=== PATIENT | female | born 1945 | race Caucasian/White ===

== ENCOUNTER 2019-08-26 11:17 | Inpatient (IN) | payer MEDICARE, MEDICAID ==
[2019-08-27 01:26] VITALS: BP 133/58
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
[2019-08-27] MEDS: Budesonide 0.5 Mg/2 mL Ud HHN SCH (16:34)
[2019-08-27] MEDS: Ferrous Sulfate 325 MG TAB PO SCH (16:34)
--- NOTE | 2019-08-27 16:50 | History & Physical ---
ADMIT DATE: CHIEF COMPLAINT: Auditory hallucinations. HISTORY OF PRESENT ILLNESS: We have a 74-year-old female with diabetes, hypertension, transferred from [facility] to continue management of auditory hallucinations. The patient is saying incomprehensible words. She is claiming "I am talking to Willam." No chest pain, shortness of breath. No nausea, vomiting, abdominal pain. PAST MEDICAL HISTORY: Diabetes, hypertension. PAST SURGICAL HISTORY: None. MEDICATIONS: Reviewed. ALLERGIES: None. SOCIAL HISTORY: Tobacco, IV drugs, ETOH negative. PHYSICAL EXAMINATION: VITAL SIGNS: Temperature is 97.6, pulse 80, respirations 20, blood pressure 133/58. HEENT: Normocephalic, atraumatic head exam. NECK: Supple. CARDIOVASCULAR: Regular rate and rhythm. LUNGS: Decreased breath sounds. ABDOMEN: Soft, nontender. EXTREMITIES: No edema, cyanosis or clubbing. ASSESSMENT: 1. Auditory hallucinations. 2. Diabetes. 3. Hypertension. 4. Obesity. 5. Urinary tract infection. PLAN: The patient will be continued on supportive care. We will medically manage with diabetes. We will get Accu-Cheks q.a.c. and at bedtime, sliding scale insulin. JOB# [id number]
[2019-08-28] MEDS: Albuterol Nebulizer 2.5mg/3mL HHN SCH ×4 (06:29→17:36)
[2019-08-28] MEDS: Levothyroxine 0.05 Mg Tab PO SCH (07:34)
[2019-08-28] MEDS: Budesonide 0.5 Mg/2 mL Ud HHN SCH ×2 (08:33→16:28)
[2019-08-28] MEDS: Aspirin 81mg Chewable Tab PO SCH (08:33)
[2019-08-28] MEDS: Ferrous Sulfate 325 MG TAB PO SCH ×2 (08:34→16:29)
[2019-08-28] MEDS: Potassium Chloride 10 mEq ER Tab PO SCH (08:36)
[2019-08-28] MEDS ORDERED: Non-Formulary Item 1 EA (Fluticasone/Vilanterol [Breo Ellipta 200-25 Mcg Inh] 1 EACH) INH SCH (09:00)
[2019-08-28] MEDS ORDERED: GLUCAGON HCl 1 MG KIT IM PRN (11:29)
--- NOTE | 2019-08-28 11:34 | Internal Medicine Prog Note ---
Internal Medicine Subjective - Subjective Service Date: 08/28/19 Patient seen and examined:: without staff Patient is:: awake, interactive, ambulating Per staff patient has:: no adverse event, no episodes of fall Internal Medicine Objective - Physical Exam Vitals and I&O: Vital Signs Temp 98.7 F 08/28/19 06:29 Pulse 90 08/28/19 08:36 Resp 20 08/28/19 07:40 BP 153/83 08/28/19 08:36 Pulse Ox 97 08/28/19 06:29 Intake & Output 08/27/19 08/28/19 08/28/19 18:59 06:59 18:59 Intake Total 800 120 Balance 800 120 Intake: Oral 800 120 Other: # Voids 3 3 # Bowel Movements 0 Active Medications: Current Medications Albuterol Sulfate (Albuterol 2.5mg/3ml Neb Ud) 2.5 mg HHN Q6HR [facility] Stop: 10/26/19 17:59 Last Admin: 08/28/19 06:29 Dose: Not Given Allopurinol (Zyloprim) 100 mg PO DAILY [facility] Stop: 10/27/19 08:59 Last Admin: 08/28/19 08:33 Dose: 100 mg Aspirin (Aspirin Chewable) 81 mg PO DAILY [facility] Stop: 10/27/19 08:59 Last Admin: 08/28/19 08:33 Dose: 81 mg Brimonidine Tartrate (Alphagan 0.1% Ophth Soln) 1 drop EACH EYE HS [facility] Stop: 10/26/19 20:59 Last Admin: 08/27/19 21:26 Dose: 1 drop Budesonide (Pulmicort) 0.5 mg HHN BID [facility] Stop: 10/26/19 16:59 Last Admin: 08/28/19 08:33 Dose: 0.5 mg Carvedilol (Coreg) 6.25 mg PO BID [facility] Stop: 10/26/19 16:59 Last Admin: 08/28/19 08:33 Dose: 6.25 mg Dextrose (Glutose 40%) 18.75 gm PO PRN PRN PRN Reason: Blood Glucose less than 70 Stop: 10/27/19 11:28 Famotidine (Pepcid) 20 mg PO DAILY [facility] Stop: 10/27/19 08:59 Last Admin: 08/28/19 08:34 Dose: 20 mg Ferrous Sulfate (Iron) 325 mg PO BID [facility] Stop: 10/26/19 16:59 Last Admin: 08/28/19 08:34 Dose: 325 mg Fluoxetine HCl (Prozac) 20 mg PO DAILY [facility]; Protocol Stop: 10/27/19 08:59 Last Admin: 08/28/19 08:34 Dose: 20 mg Furosemide (Lasix) 20 mg PO DAILY [facility] Stop: 10/27/19 08:59 Last Admin: 08/28/19 08:34 Dose: 20 mg Glimepiride (Amaryl) 2 mg PO BID [facility] Stop: 10/26/19 16:59 Last Admin: 08/28/19 08:35 Dose: 2 mg Glucagon (Glucagen) 1 mg IM PRN PRN PRN Reason: Blood Glucose less than 70 Stop: 10/27/19 11:28 Insulin Human Lispro (Humalog Insulin Sliding Scale) 0 units SUBQ ACHS [facility]; Protocol Stop: 10/27/19 11:29 Latanoprost (Xalatan 0.005% Oph Soln) 1 drop EACH EYE HS [facility] Stop: 10/26/19 20:59 Last Admin: 08/27/19 21:30 Dose: 1 drop Levothyroxine Sodium (Synthroid) 0.05 mg PO QDAC [facility] Stop: 10/27/19 07:29 Last Admin: 08/28/19 07:34 Dose: 0.05 mg Lorazepam (Ativan) 0.5 mg PO Q4HR PRN; Protocol PRN Reason: Anxiety Stop: 10/26/19 01:34 Last Admin: 08/27/19 16:40 Dose: 0.5 mg Metformin HCl (Glucophage) 500 mg PO DAILY [facility] Stop: 10/27/19 08:59 Last Admin: 08/28/19 08:36 Dose: 500 mg Nitroglycerin (Nitrostat) 0.4 mg SL Q5MIN PRN PRN Reason: Chest Pain Stop: 10/26/19 13:25 Potassium Chloride (Klor-Con) 10 meq PO DAILY [facility] Stop: 10/27/19 08:59 Last Admin: 08/28/19 08:36 Dose: 10 meq Quetiapine Fumarate (Seroquel) 12.5 mg PO BID [facility]; Protocol Stop: 10/26/19 16:59 Last Admin: 05/08/20 08:36 Dose: 12.5 mg Simvastatin (Zocor) 20 mg PO DAILY [facility]; Protocol Stop: 10/27/19 08:59 Last Admin: 08/28/19 08:36 Dose: 20 mg Valsartan (Diovan) 160 mg PO DAILY [facility] Stop: 10/27/19 08:59 Last Admin: 08/28/19 08:36 Dose: 160 mg Zolpidem Tartrate (Ambien) 5 mg PO HS PRN PRN Reason: Insomnia Stop: 10/26/19 01:35 HEENT: NC/AT Neck: Supple Lungs: CTAB Cardiovascular: RRR, Normal S1, Normal S2 Abdomen: soft, non-tender Extremities: clear Internal Medicine Assmt/Plan - Assessment Assessment: 1. Psychosis 2. DM/HTN 3. UTI - Plan Plan: will start insulin sliding scale insulin check stat bmp continue metformin d.w r.n.
[2019-08-28] MEDS: INSULIN LISPRO SLIDING SCALE 100 UNITS/ML UNIT SUBQ SCH ×3 (12:00→21:39)
--- NOTE | 2019-08-28 19:37 | Progress Notes ---
DATE: 08/28/2019 SUBJECTIVE: Case was discussed with staff of the patient, reviewed records. The patient continues to be overwhelmed, continues to be unpredictable, impulsive, episodes of crying, delusional, and paranoid. I called her son, Rolly, whose name is on her face sheet. I left a message to call me to get more information and also to see whether they want the patient to go back home or to go to a nursing facility. The patient with multiple physical condition and on cross examination, the patient is internally preoccupied. Continues to be mumbling, unable to make sense, confused. So, we spoke through a fireman. Unable to make safe plan for self-care, easily agitated. No side effects with the medication, no sedation, no nausea, no extrapyramidal symptoms and she is on Effexor and Seroquel. We will continue outpatient group therapy, milieu therapy, and adjust medication as needed. JOB# [id number]
[2019-08-29] MEDS: Albuterol Nebulizer 2.5mg/3mL HHN SCH ×4 (00:29→17:09)
[2019-08-29] MEDS: Levothyroxine 0.05 Mg Tab PO SCH (06:46)
[2019-08-29] MEDS: INSULIN LISPRO SLIDING SCALE 100 UNITS/ML UNIT SUBQ SCH ×4 (07:01→20:53)
[2019-08-29] MEDS: Budesonide 0.5 Mg/2 mL Ud HHN SCH ×2 (08:31→16:57)
[2019-08-29] MEDS: Aspirin 81mg Chewable Tab PO SCH (08:31)
[2019-08-29] MEDS: Ferrous Sulfate 325 MG TAB PO SCH ×2 (08:31→16:58)
[2019-08-29] MEDS: Potassium Chloride 10 mEq ER Tab PO SCH (08:32)
--- NOTE | 2019-08-29 20:47 | Psych Progress Note ---
Psych Progress Note - Intro Date of Progress Note: 08/29/19 - Assessment Assessment: Patient interviewed, case discussed with staff, chart and records reviewed. The patient continues to respond to internal stimuli. The patient has episodes of restlessness and irritability and impulsive behavior. The patient is poorly cooperative with the interview. The patient has disorganized thinking. The patient has no plan for self-care. She appears to be tolerating her medications well with no side effects. - Vitals, I&O Vitals: Vital Signs - 24 hr 08/29/19 08/29/19 08/29/19 06:41 07:12 08:31 Temp 97.3 F HR 71 71 RR 20 20 BP 158/60 158/60 O2 Sat % 97 08/29/19 08/29/19 08/29/19 08:32 14:00 16:57 Temp 97.5 F HR 71 78 75 RR 20 BP 158/60 146/64 144/64 O2 Sat % 96 08/29/19 20:05 Temp 99.4 F HR 94 RR 19 BP 147/76 O2 Sat % 98 - Objective Psych General Appearance: Report: No acute distress Psych Behavior: Report: Alert, Restless Psych Speech: Report: Mumbled Psych Mood: Report: Anxious Psych Affect: Report: Blunted Psych Thought Process: Report: Auditory Psych Cognition: Report: Confused Psych Insight: Report: Impaired Psych Judgement: Report: Impaired - Plan Plan: Continue current medications and treatment plan. Continue monitor for behaviors - Review of Relevant Data Review of Relevant Data: I have reviewed the following items and time isabelle (where applicable) has been applied. Psych Data Reviewed: Vitals - Medications Current Medications: Current Medications Albuterol Sulfate (Albuterol 2.5mg/3ml Neb Ud) 2.5 mg HHN Q6HR [facility] Stop: 10/26/19 17:59 Last Admin: 08/29/19 17:09 Dose: Not Given Allopurinol (Zyloprim) 100 mg PO DAILY [facility] Stop: 10/27/19 08:59 Last Admin: 08/29/19 08:30 Dose: 100 mg Aspirin (Aspirin Chewable) 81 mg PO DAILY [facility] Stop: 10/27/19 08:59 Last Admin: 08/29/19 08:31 Dose: 81 mg Brimonidine Tartrate (Alphagan 0.1% Ophth Soln) 1 drop EACH EYE HS [facility] Stop: 10/26/19 20:59 Last Admin: 08/28/19 21:27 Dose: 1 drop Budesonide (Pulmicort) 0.5 mg HHN BID [facility] Stop: 10/26/19 16:59 Last Admin: 08/29/19 16:57 Dose: 0.5 mg Carvedilol (Coreg) 6.25 mg PO BID [facility] Stop: 10/26/19 16:59 Last Admin: 08/29/19 16:57 Dose: 6.25 mg Dextrose (Glutose 40%) 18.75 gm PO PRN PRN PRN Reason: BS Below 70 if tolerate po Stop: 10/27/19 11:28 Famotidine (Pepcid) 20 mg PO DAILY [facility] Stop: 10/27/19 08:59 Last Admin: 08/29/19 08:31 Dose: 20 mg Ferrous Sulfate (Iron) 325 mg PO BID [facility] Stop: 10/26/19 16:59 Last Admin: 08/29/19 16:58 Dose: 325 mg Fluoxetine HCl (Prozac) 20 mg PO DAILY [facility]; Protocol Stop: 10/27/19 08:59 Last Admin: 08/29/19 08:31 Dose: 20 mg Furosemide (Lasix) 20 mg PO DAILY [facility] Stop: 10/27/19 08:59 Last Admin: 08/29/19 08:31 Dose: 20 mg Glimepiride (Amaryl) 2 mg PO BID [facility] Stop: 10/26/19 16:59 Last Admin: 08/29/19 16:58 Dose: 2 mg Glucagon (Glucagen) 1 mg IM PRN PRN PRN Reason: BS Below 70 if not tolerate po Stop: 10/27/19 11:28 Insulin Human Lispro (Humalog Insulin Sliding Scale) 0 units SUBQ ACHS [facility]; Protocol Stop: 10/27/19 11:29 Last Admin: 08/29/19 16:57 Dose: Not Given Latanoprost (Xalatan 0.005% Oph Soln) 1 drop EACH EYE HS [facility] Stop: 10/26/19 20:59 Last Admin: 08/28/19 21:27 Dose: 1 drop Levothyroxine Sodium (Synthroid) 0.05 mg PO QDAC [facility] Stop: 10/27/19 07:29 Last Admin: 08/29/19 06:46 Dose: 0.05 mg Lorazepam (Ativan) 0.5 mg PO Q4HR PRN; Protocol PRN Reason: Anxiety Stop: 10/26/19 01:34 Last Admin: 08/28/19 21:27 Dose: 0.5 mg Metformin HCl (Glucophage) 500 mg PO DAILY [facility] Stop: 10/27/19 08:59 Last Admin: 08/29/19 08:32 Dose: 500 mg Nitroglycerin (Nitrostat) 0.4 mg SL Q5MIN PRN PRN Reason: Chest Pain Stop: 10/26/19 13:25 Potassium Chloride (Klor-Con) 10 meq PO DAILY [facility] Stop: 10/27/19 08:59 Last Admin: 08/29/19 08:32 Dose: 10 meq Quetiapine Fumarate (Seroquel) 25 mg PO BID [facility]; Protocol Stop: 10/28/19 08:59 Last Admin: 08/29/19 16:58 Dose: 25 mg Simvastatin (Zocor) 20 mg PO DAILY [facility]; Protocol Stop: 10/27/19 08:59 Last Admin: 08/29/19 08:32 Dose: 20 mg Valsartan (Diovan) 160 mg PO DAILY [facility] Stop: 10/27/19 08:59 Last Admin: 08/29/19 08:32 Dose: 160 mg Zolpidem Tartrate (Ambien) 5 mg PO HS PRN PRN Reason: Insomnia Stop: 10/26/19 01:35 Last Admin: 08/28/19 23:29 Dose: 5 mg
[2019-08-30] MEDS: Albuterol Nebulizer 2.5mg/3mL HHN SCH ×3 (00:13→13:00)
[2019-08-30] MEDS: INSULIN LISPRO SLIDING SCALE 100 UNITS/ML UNIT SUBQ SCH ×4 (06:33→21:03)
[2019-08-30] MEDS: Levothyroxine 0.05 Mg Tab PO SCH (06:33)
[2019-08-30] MEDS: Aspirin 81mg Chewable Tab PO SCH (09:47)
[2019-08-30] MEDS: Budesonide 0.5 Mg/2 mL Ud HHN SCH ×2 (09:47→16:54)
[2019-08-30] MEDS: Ferrous Sulfate 325 MG TAB PO SCH ×2 (09:48→16:47)
[2019-08-30] MEDS: Potassium Chloride 10 mEq ER Tab PO SCH (09:50)
--- NOTE | 2019-08-30 19:09 | Psych Progress Note ---
Psych Progress Note - Intro Date of Progress Note: 08/30/19 - Assessment Assessment: Patient interviewed, case discussed with staff, chart and records reviewed. The patient continues to respond to internal stimuli. The patient has episodes of restlessness and irritability and impulsive behavior. The patient is poorly cooperative with the interview. The patient has disorganized thinking. The patient has no plan for self-care. She appears to be tolerating her medications well with no side effects. She is wandering into other patient rooms. - Vitals, I&O Vitals: Vital Signs - 24 hr 08/29/19 08/30/19 08/30/19 20:05 06:48 08:00 Temp 99.4 F 99.6 F HR 94 76 92 RR 19 19 20 BP 147/76 161/67 161/84 O2 Sat % 98 94 08/30/19 08/30/19 08/30/19 09:47 09:48 09:50 Temp HR 92 92 RR BP 161/84 161/84 161/84 O2 Sat % 08/30/19 08/30/19 14:00 16:47 Temp 99.4 F HR 96 96 RR 20 BP 144/70 144/70 O2 Sat % 93 - Objective Psych General Appearance: Report: No acute distress Psych Behavior: Report: Alert, Restless Psych Speech: Report: Mumbled Psych Mood: Report: Anxious Psych Affect: Report: Blunted Psych Thought Process: Report: Auditory Psych Cognition: Report: Confused Psych Insight: Report: Impaired Psych Judgement: Report: Impaired - Plan Plan: Continue current medications and treatment plan. will adjust psychotropics. Continue monitor for behaviors - Review of Relevant Data Review of Relevant Data: I have reviewed the following items and time isabelle (where applicable) has been applied. - Medications Current Medications: Current Medications Albuterol Sulfate (Albuterol 2.5mg/3ml Neb Ud) 2.5 mg HHN Q6HR [facility] Stop: 10/26/19 17:59 Last Admin: 08/30/19 13:00 Dose: Not Given Allopurinol (Zyloprim) 100 mg PO DAILY [facility] Stop: 10/27/19 08:59 Last Admin: 08/30/19 09:47 Dose: 100 mg Aspirin (Aspirin Chewable) 81 mg PO DAILY [facility] Stop: 10/27/19 08:59 Last Admin: 08/30/19 09:47 Dose: 81 mg Brimonidine Tartrate (Alphagan 0.1% Ophth Soln) 1 drop EACH EYE HS [facility] Stop: 10/26/19 20:59 Last Admin: 08/29/19 20:52 Dose: 1 drop Budesonide (Pulmicort) 0.5 mg HHN BID [facility] Stop: 10/26/19 16:59 Last Admin: 08/30/19 16:54 Dose: 0.5 mg Carvedilol (Coreg) 6.25 mg PO BID [facility] Stop: 10/26/19 16:59 Last Admin: 08/30/19 16:47 Dose: 6.25 mg Dextrose (Glutose 40%) 18.75 gm PO PRN PRN PRN Reason: BS Below 70 if tolerate po Stop: 10/27/19 11:28 Famotidine (Pepcid) 20 mg PO DAILY [facility] Stop: 10/27/19 08:59 Last Admin: 08/30/19 09:48 Dose: 20 mg Ferrous Sulfate (Iron) 325 mg PO BID [facility] Stop: 10/26/19 16:59 Last Admin: 08/30/19 16:47 Dose: 325 mg Fluoxetine HCl (Prozac) 20 mg PO DAILY [facility]; Protocol Stop: 10/27/19 08:59 Last Admin: 08/30/19 09:49 Dose: 20 mg Furosemide (Lasix) 20 mg PO DAILY [facility] Stop: 10/27/19 08:59 Last Admin: 08/30/19 09:48 Dose: 20 mg Glimepiride (Amaryl) 2 mg PO BID [facility] Stop: 10/26/19 16:59 Last Admin: 08/30/19 16:47 Dose: 2 mg Glucagon (Glucagen) 1 mg IM PRN PRN PRN Reason: BS Below 70 if not tolerate po Stop: 10/27/19 11:28 Insulin Human Lispro (Humalog Insulin Sliding Scale) 0 units SUBQ ACHS [facility]; Protocol Stop: 10/27/19 11:29 Last Admin: 08/30/19 16:45 Dose: 3 units Latanoprost (Xalatan 0.005% Ophth Soln) 1 drop EACH EYE HS [facility] Stop: 10/26/19 20:59 Last Admin: 08/29/19 20:53 Dose: 1 drop Levothyroxine Sodium (Synthroid) 0.05 mg PO QDAC [facility] Stop: 10/27/19 07:29 Last Admin: 08/30/19 06:33 Dose: 0.05 mg Lorazepam (Ativan) 0.5 mg PO Q4HR PRN; Protocol PRN Reason: Anxiety Stop: 10/26/19 01:34 Last Admin: 08/29/19 20:53 Dose: 0.5 mg Metformin HCl (Glucophage) 500 mg PO DAILY [facility] Stop: 10/27/19 08:59 Last Admin: 08/30/19 09:50 Dose: 500 mg Nitroglycerin (Nitrostat) 0.4 mg SL Q5MIN PRN PRN Reason: Chest Pain Stop: 10/26/19 13:25 Potassium Chloride (Klor-Con) 10 meq PO DAILY [facility] Stop: 10/27/19 08:59 Last Admin: 08/30/19 09:50 Dose: 10 meq Quetiapine Fumarate (Seroquel) 37.5 mg PO BID [facility]; Protocol Stop: 10/29/19 16:59 Last Admin: 08/30/19 16:52 Dose: 37.5 mg Simvastatin (Zocor) 20 mg PO DAILY [facility]; Protocol Stop: 10/27/19 08:59 Last Admin: 08/30/19 09:50 Dose: 20 mg Valsartan (Diovan) 160 mg PO DAILY [facility] Stop: 10/27/19 08:59 Last Admin: 08/30/19 09:50 Dose: 160 mg Zolpidem Tartrate (Ambien) 5 mg PO HS PRN PRN Reason: Insomnia Stop: 10/26/19 01:35 Last Admin: 08/28/19 23:29 Dose: 5 mg
[2019-08-31] MEDS: Albuterol Nebulizer 2.5mg/3mL HHN SCH ×4 (01:11→18:06)
[2019-08-31] MEDS: INSULIN LISPRO SLIDING SCALE 100 UNITS/ML UNIT SUBQ SCH ×4 (06:35→21:54)
[2019-08-31] MEDS: Levothyroxine 0.05 Mg Tab PO SCH (06:41)
[2019-08-31] MEDS: Aspirin 81mg Chewable Tab PO SCH (08:18)
[2019-08-31] MEDS: Ferrous Sulfate 325 MG TAB PO SCH ×2 (08:18→16:19)
[2019-08-31] MEDS: Potassium Chloride 10 mEq ER Tab PO SCH (08:18)
[2019-08-31] MEDS: Budesonide 0.5 Mg/2 mL Ud HHN SCH ×3 (08:22→16:51)
--- NOTE | 2019-08-31 11:56 | Internal Medicine Prog Note ---
Internal Medicine Subjective - Subjective Service Date: 08/31/19 Patient is:: awake, interactive, ambulating Per staff patient has:: no adverse event, no episodes of fall Internal Medicine Objective - Results Recent Labs: Laboratory Last Values POC Glucose 103 MG/DL (70 - 105) 08/31/19 06:24 - Physical Exam Vitals and I&O: Vital Signs Temp 97.4 F 08/31/19 06:12 Pulse 63 08/31/19 08:20 Resp 18 08/31/19 08:00 BP 144/63 08/31/19 08:20 Pulse Ox 97 08/31/19 06:12 Intake & Output 08/30/19 08/31/19 08/31/19 18:59 06:59 18:59 Intake Total 620 360 Balance 620 360 Intake: Oral 620 360 Other: # Voids 1 # Bowel Movements 0 Active Medications: Current Medications Albuterol Sulfate (Albuterol 2.5mg/3ml Neb Ud) 2.5 mg HHN Q6HR [facility] Stop: 10/26/19 17:59 Last Admin: 08/31/19 06:12 Dose: Not Given Allopurinol (Zyloprim) 100 mg PO DAILY [facility] Stop: 10/27/19 08:59 Last Admin: 08/31/19 08:18 Dose: 100 mg Aspirin (Aspirin Chewable) 81 mg PO DAILY [facility] Stop: 10/27/19 08:59 Last Admin: 08/31/19 08:18 Dose: 81 mg Brimonidine Tartrate (Alphagan 0.1% Ophth Soln) 1 drop EACH EYE HS [facility] Stop: 10/26/19 20:59 Last Admin: 08/30/19 21:03 Dose: 1 drop Budesonide (Pulmicort) 0.5 mg HHN BID [facility] Stop: 10/26/19 16:59 Last Admin: 08/31/19 08:22 Dose: 0.5 mg Carvedilol (Coreg) 6.25 mg PO BID [facility] Stop: 10/26/19 16:59 Last Admin: 08/31/19 08:20 Dose: 6.25 mg Dextrose (Glutose 40%) 18.75 gm PO PRN PRN PRN Reason: BS Below 70 if tolerate po Stop: 10/27/19 11:28 Famotidine (Pepcid) 20 mg PO QDAC [facility] Stop: 10/31/19 07:29 Ferrous Sulfate (Iron) 325 mg PO BID [facility] Stop: 10/26/19 16:59 Last Admin: 08/31/19 08:18 Dose: 325 mg Fluoxetine HCl (Prozac) 20 mg PO DAILY [facility]; Protocol Stop: 10/27/19 08:59 Last Admin: 08/31/19 08:19 Dose: 20 mg Furosemide (Lasix) 20 mg PO DAILY [facility] Stop: 10/27/19 08:59 Last Admin: 08/31/19 08:20 Dose: 20 mg Glimepiride (Amaryl) 2 mg PO BID [facility] Stop: 10/26/19 16:59 Last Admin: 08/31/19 08:18 Dose: 2 mg Glucagon (Glucagen) 1 mg IM PRN PRN PRN Reason: BS Below 70 if not tolerate po Stop: 10/27/19 11:28 Insulin Human Lispro (Humalog Insulin Sliding Scale) 0 units SUBQ ACHS [facility]; Protocol Stop: 10/27/19 11:29 Last Admin: 08/31/19 06:35 Dose: Not Given Latanoprost (Xalatan 0.005% Ophth Soln) 1 drop EACH EYE HS [facility] Stop: 10/26/19 20:59 Last Admin: 08/30/19 21:03 Dose: 1 drop Levothyroxine Sodium (Synthroid) 0.05 mg PO QDAC [facility] Stop: 10/27/19 07:29 Last Admin: 08/31/19 06:41 Dose: 0.05 mg Lorazepam (Ativan) 0.5 mg PO Q4HR PRN; Protocol PRN Reason: Anxiety Stop: 10/26/19 01:34 Last Admin: 08/29/19 20:53 Dose: 0.5 mg Metformin HCl (Glucophage) 500 mg PO DAILY [facility] Stop: 10/27/19 08:59 Last Admin: 08/31/19 08:18 Dose: 500 mg Nitroglycerin (Nitrostat) 0.4 mg SL Q5MIN PRN PRN Reason: Chest Pain Stop: 10/26/19 13:25 Potassium Chloride (Klor-Con) 10 meq PO DAILY [facility] Stop: 10/27/19 08:59 Last Admin: 08/31/19 08:18 Dose: 10 meq Quetiapine Fumarate (Seroquel) 37.5 mg PO BID [facility]; Protocol Stop: 10/29/19 16:59 Last Admin: 08/31/19 08:17 Dose: 37.5 mg Simvastatin (Zocor) 20 mg PO HS [facility]; Protocol Stop: 10/31/19 20:59 Valsartan (Diovan) 160 mg PO DAILY [facility] Stop: 10/27/19 08:59 Last Admin: 08/31/19 08:20 Dose: 160 mg Zolpidem Tartrate (Ambien) 5 mg PO HS PRN PRN Reason: Insomnia Stop: 10/26/19 01:35 Last Admin: 08/28/19 23:29 Dose: 5 mg HEENT: NC/AT Neck: Supple Lungs: CTAB Cardiovascular: RRR, Normal S1, Normal S2 Abdomen: soft, non-tender Extremities: clear Internal Medicine Assmt/Plan - Assessment Assessment: 1. Psychosis 2. DM/HTN 3. UTI - Plan Plan: will start insulin sliding scale insulin continue metformin d.w r.n. Nutritional Asmnt/Malnutr-PDOC - Dietary Evaluation Malnutrition Findings (Please click <Entered> for more info): Nutritional Asmnt/Malnutrition Start: 08/29/19 09: 11 Text: Status: Complete Freq: Protocol: Document 08/29/19 09:11 TERRIE (Rec: 08/29/19 09:29 TERRIE CASE- [id number]) Nutritional Asmnt/Malnutrition Patient General Information Nutritional Screening Moderate Risk Diagnosis Psychosis Pertinent Medical Hx/Surgical Hx Diabetes, Hypertension, asthma , arthritis, dementia, parkinsons, hypothyroidism, glaucoma, hyperlipidemia. Subjective Information Patient was admitted from [facility]. Amharic speaking. Per nursing notes, patient very suspicious, paranoid that poison powder may be added to her food. Current Diet Order/ Nutrition Support 60 gm CCHO, VIVIEN Patient / S.O Not Indicated Pertinent Medications Pepcid, iron, lasix, glucagon, humalog, synthroid, Metformin , Klor-con Pertinent Labs POC glucose 269 5/6: HDL 44 Nutritional Hx/Data Height 1.45 m Height (Calculated Centimeters) 144.8 Current Weight (lbs) 67.585 kg Weight (Calculated Kilograms) 67.6 Weight (Calculated Grams) 87189.3 [place] Body Weight 92.5 % [place] Body Weight 161 Body Mass Index (BMI) 32.2 Recent Weight Change No Weight Status Obese GI Symptoms GI Symptoms Nausea Last BM 08/27 x 1 Difficult in: None Food Allergies No Cultural/Ethnic/Samaritan Belief none indicated Usual diet at home unknown Skin Integrity/Comment: Intact, James 21 Current %PO Good (75-100%) Estimated Nutritional Goals BEE in Kcals: Adj wt of IBW Calories/Kcals/Kg Adj BW 48.4 kg 25-30 kcal/kg Kcals Calculated ~4810-9911 kcal/day Protein: Adj wt of IBW Protein g/k-1.2 gm/kg Protein Calculated ~50-60 gm/day Fluid: ml ~1525-0740 ml/day (1 ml/kcal) Nutritional Problem 1. Problem Problem Altered nutrition related lab values related to Etiology uncontrolled hyperglycemia aeb Signs/Symptoms: POC glucose 269 Intervention/Recommendation Comments 1. Consider modifying diet to 45 gm CCHO to better meet nutrient needs. 2. MD to modify insulin regimen as needed for optimal glycemic control. Expected Outcomes/Goals Expected Outcomes/Goals Oral intake >75% of meals, weight stable or trend toward IBW, nutrition related lab values WNL. F/U LR 09/04-
[2019-09-01] MEDS: Albuterol Nebulizer 2.5mg/3mL HHN SCH ×4 (00:30→18:10)
--- NOTE | 2019-09-01 01:37 | Progress Notes ---
DATE: 08/31/2019 Case was discussed with staff of the patient, reviewed records. The patient continues to be agitated and irritable with episodes of yelling and screaming, restless, impulsive, unpredictable and uncooperative, disorganized. No plan for self-care. No side effects with the medication, no sedation, no nausea, no extrapyramidal symptoms. MENTAL STATUS EXAMINATION: The patient is not appropriately dressed, not very groomed. She is talking to herself, unable to make safe plan for self-care, unpredictable, impulsive, needing redirection. Dr. gamez increased her dose yesterday of the Seroquel to 37.5 mg twice a day. I will be making further increase of her medication to 50 mg twice a day. No side effects with the medication, no sedation, no nausea, no extrapyramidal symptoms. Also, called her her son have a call me back. I will try to call him again and we will continue to work with the patient in group therapy, milieu therapy, adjust medication as needed. JOB# [id number] MTDD
[2019-09-01] MEDS: Levothyroxine 0.05 Mg Tab PO SCH (07:00)
[2019-09-01] MEDS: INSULIN LISPRO SLIDING SCALE 100 UNITS/ML UNIT SUBQ SCH ×4 (07:00→21:49)
[2019-09-01] MEDS: Potassium Chloride 10 mEq ER Tab PO SCH (08:12)
[2019-09-01] MEDS: Aspirin 81mg Chewable Tab PO SCH (08:12)
[2019-09-01] MEDS: Ferrous Sulfate 325 MG TAB PO SCH ×2 (08:13→16:37)
[2019-09-01] MEDS: Budesonide 0.5 Mg/2 mL Ud HHN SCH ×2 (08:15→16:38)
--- NOTE | 2019-09-01 21:09 | Progress Notes ---
DATE: 09/01/2019 Case was discussed with staff of these records. Also talked to her son yesterday and he told me that they do plan to have her go back home. She will have 24-hour care. The patient tolerated the increase in Seroquel to 50 mg twice a day with no side effects, no sedation, no nausea, no extrapyramidal symptoms. However, the patient continues with disheveled, disorganized, internally preoccupied, impulsive, trying to leave , pushing on the doors. She is sleeping better, eating better. No side effects with the medication, no sedation, no nausea, no extrapyramidal symptoms. We will continue outpatient group therapy, milieu therapy, and adjust medications as needed. JOB# [id number] ANTONIO
[2019-09-02] MEDS: Albuterol Nebulizer 2.5mg/3mL HHN SCH ×4 (00:47→18:49)
[2019-09-02] MEDS: INSULIN LISPRO SLIDING SCALE 100 UNITS/ML UNIT SUBQ SCH ×4 (06:44→20:39)
[2019-09-02] MEDS: Levothyroxine 0.05 Mg Tab PO SCH (06:45)
[2019-09-02] MEDS: Aspirin 81mg Chewable Tab PO SCH (08:33)
[2019-09-02] MEDS: Ferrous Sulfate 325 MG TAB PO SCH ×2 (08:33→16:45)
[2019-09-02] MEDS: Potassium Chloride 10 mEq ER Tab PO SCH (08:33)
[2019-09-02] MEDS: Budesonide 0.5 Mg/2 mL Ud HHN SCH ×2 (08:36→17:49)
--- NOTE | 2019-09-02 14:10 | Internal Medicine Prog Note ---
Internal Medicine Subjective - Subjective Service Date: 09/02/19 (no chest pain, no sob) Patient seen and examined:: without staff Patient is:: awake, interactive, ambulating Per staff patient has:: no adverse event, no episodes of fall Internal Medicine Objective - Results Recent Labs: Laboratory Last Values POC Glucose 201 MG/DL (70 - 105) H 09/02/19 11:13 - Physical Exam Vitals and I&O: Vital Signs Temp 98.5 F 09/02/19 06:43 Pulse 68 09/02/19 08:35 Resp 18 09/02/19 08:00 BP 138/78 09/02/19 08:35 Pulse Ox 99 09/02/19 06:43 Intake & Output 09/01/19 09/02/19 09/02/19 18:59 06:59 18:59 Intake Total 800 240 Balance 800 240 Intake: Oral 800 240 Other: # Voids 3 2 # Bowel Movements 1 0 Active Medications: Current Medications Albuterol Sulfate (Albuterol 2.5mg/3ml Neb Ud) 2.5 mg HHN Q6HR [facility] Stop: 10/26/19 17:59 Last Admin: 09/02/19 12:04 Dose: Not Given Allopurinol (Zyloprim) 100 mg PO DAILY [facility] Stop: 10/27/19 08:59 Last Admin: 09/02/19 08:33 Dose: 100 mg Aspirin (Aspirin Chewable) 81 mg PO DAILY [facility] Stop: 10/27/19 08:59 Last Admin: 09/02/19 08:33 Dose: 81 mg Brimonidine Tartrate (Alphagan 0.1% Ophth Soln) 1 drop EACH EYE HS [facility] Stop: 10/26/19 20:59 Last Admin: 09/01/19 21:16 Dose: 1 drop Budesonide (Pulmicort) 0.5 mg HHN BID [facility] Stop: 10/26/19 16:59 Last Admin: 09/02/19 08:36 Dose: Not Given Carvedilol (Coreg) 6.25 mg PO BID [facility] Stop: 10/26/19 16:59 Last Admin: 09/02/19 08:35 Dose: 6.25 mg Dextrose (Glutose 40%) 18.75 gm PO PRN PRN PRN Reason: BS Below 70 if tolerate po Stop: 10/27/19 11:28 Donepezil HCl (Aricept) 5 mg PO HS [facility] Stop: 10/30/19 20:59 Last Admin: 09/01/19 21:16 Dose: Not Given Famotidine (Pepcid) 20 mg PO QDAC [facility] Stop: 10/31/19 07:29 Last Admin: 09/02/19 06:44 Dose: 20 mg Ferrous Sulfate (Iron) 325 mg PO BID [facility] Stop: 10/26/19 16:59 Last Admin: 09/02/19 08:33 Dose: 325 mg Fluoxetine HCl (Prozac) 20 mg PO DAILY [facility]; Protocol Stop: 10/27/19 08:59 Last Admin: 09/02/19 08:33 Dose: 20 mg Furosemide (Lasix) 20 mg PO DAILY [facility] Stop: 10/27/19 08:59 Last Admin: 09/02/19 08:34 Dose: 20 mg Glimepiride (Amaryl) 2 mg PO BID [facility] Stop: 10/26/19 16:59 Last Admin: 09/02/19 08:33 Dose: 2 mg Glucagon (Glucagen) 1 mg IM PRN PRN PRN Reason: BS Below 70 if not tolerate po Stop: 10/27/19 11:28 Insulin Human Lispro (Humalog Insulin Sliding Scale) 0 units SUBQ ACHS [facility]; Protocol Stop: 10/27/19 11:29 Last Admin: 09/02/19 12:17 Dose: 1,000 units Latanoprost (Xalatan 0.005% Ophth Soln) 1 drop EACH EYE [facility] Stop: 10/26/19 20:59 Last Admin: 09/01/19 21:16 Dose: 1 drop Levothyroxine Sodium (Synthroid) 0.05 mg PO QDAC [facility] Stop: 10/27/19 07:29 Last Admin: 09/02/19 06:45 Dose: 0.05 mg Lorazepam (Ativan) 0.5 mg PO Q4HR PRN; Protocol PRN Reason: Anxiety Stop: 10/26/19 01:34 Last Admin: 09/02/19 09:58 Dose: 0.5 mg Metformin HCl (Glucophage) 500 mg PO DAILY [facility] Stop: 10/27/19 08:59 Last Admin: 09/02/19 08:33 Dose: 500 mg Nitroglycerin (Nitrostat) 0.4 mg SL Q5MIN PRN PRN Reason: Chest Pain Stop: 10/26/19 13:25 Potassium Chloride (Klor-Con) 10 meq PO DAILY [facility] Stop: 10/27/19 08:59 Last Admin: 09/02/19 08:33 Dose: 10 meq Quetiapine Fumarate (Seroquel) 50 mg PO BID [facility]; Protocol Stop: 10/30/19 16:59 Last Admin: 09/02/19 08:33 Dose: 50 mg Simvastatin (Zocor) 20 mg PO HS [facility]; Protocol Stop: 10/31/19 20:59 Last Admin: 09/01/19 21:16 Dose: 20 mg Valsartan (Diovan) 160 mg PO DAILY [facility] Stop: 10/27/19 08:59 Last Admin: 09/02/19 08:35 Dose: 160 mg Zolpidem Tartrate (Ambien) 5 mg PO HS PRN PRN Reason: Insomnia Stop: 10/26/19 01:35 Last Admin: 08/28/19 23:29 Dose: 5 mg HEENT: NC/AT Neck: Supple Lungs: CTAB Cardiovascular: RRR, Normal S1, Normal S2 Abdomen: soft, non-tender Extremities: clear Internal Medicine Assmt/Plan - Assessment Assessment: 1. COPD 2. DM/HTN 3. Psychosis - Plan Plan: will start insulin sliding scale insulin continue metformin continue albuterol nebulizers continue bp monitoring d/w r.n. Nutritional Asmnt/Malnutr-PDOC - Dietary Evaluation Malnutrition Findings (Please click <Entered> for more info): Nutritional Asmnt/Malnutrition Start: 08/29/19 09: 11 Text: Status: Complete Freq: Protocol: Document 08/29/19 09:11 TERRIE (Rec: 08/29/19 09:29 TERRIE BRAGAN- [id number]) Nutritional Asmnt/Malnutrition Patient General Information Nutritional Screening Moderate Risk Diagnosis Psychosis Pertinent Medical Hx/Surgical Hx Diabetes, Hypertension, asthma , arthritis, dementia, parkinsons, hypothyroidism, glaucoma, hyperlipidemia. Subjective Information Patient was admitted from [facility]. Thai speaking. Per nursing notes, patient very suspicious, paranoid that poison powder may be added to her food. Current Diet Order/ Nutrition Support 60 gm CCHO, VIVIEN Patient / S.O Not Indicated Pertinent Medications Pepcid, iron, lasix, glucagon, humalog, synthroid, Metformin , Klor-con Pertinent Labs POC glucose 269 6: HDL 44 Nutritional Hx/Data Height 1.45 m Height (Calculated Centimeters) 144.8 Current Weight (lbs) 67.585 kg Weight (Calculated Kilograms) 67.6 Weight (Calculated Grams) 10329.3 [place] Body Weight 92.5 % [place] Body Weight 161 Body Mass Index (BMI) 32.2 Recent Weight Change No Weight Status Obese GI Symptoms GI Symptoms Nausea Last BM 08/27 x 1 Difficult in: None Food Allergies No Cultural/Ethnic/Spiritism Belief none indicated Usual diet at home unknown Skin Integrity/Comment: James Harper Current %PO Good (75-100%) Estimated Nutritional Goals BEE in Kcals: Adj wt of IBW Calories/Kcals/Kg Adj BW 48.4 kg 25-30 kcal/kg Kcals Calculated ~8950-0893 kcal/day Protein: Adj wt of IBW Protein g/k-1.2 gm/kg Protein Calculated ~50-60 gm/day Fluid: ml ~9528-6792 ml/day (1 ml/kcal) Nutritional Problem 1. Problem Problem Altered nutrition related lab values related to Etiology uncontrolled hyperglycemia aeb Signs/Symptoms: POC glucose 269 Intervention/Recommendation Comments 1. Consider modifying diet to 45 gm CCHO to better meet nutrient needs. 2. MD to modify insulin regimen as needed for optimal glycemic control. Expected Outcomes/Goals Expected Outcomes/Goals Oral intake >75% of meals, weight stable or trend toward IBW, nutrition related lab values WNL. F/U LR 09/04-
[2019-09-03] MEDS: Albuterol Nebulizer 2.5mg/3mL HHN SCH ×4 (06:42→17:04)
[2019-09-03] MEDS: Levothyroxine 0.05 Mg Tab PO SCH (06:42)
[2019-09-03] MEDS: INSULIN LISPRO SLIDING SCALE 100 UNITS/ML UNIT SUBQ SCH ×4 (06:44→20:53)
[2019-09-03] MEDS: Potassium Chloride 10 mEq ER Tab PO SCH (08:55)
[2019-09-03] MEDS: Ferrous Sulfate 325 MG TAB PO SCH ×2 (08:56→16:36)
[2019-09-03] MEDS: Aspirin 81mg Chewable Tab PO SCH (08:56)
[2019-09-03] MEDS: Budesonide 0.5 Mg/2 mL Ud HHN SCH ×2 (08:58→16:36)
[2019-09-03] MEDS: QUEtiapine Fumarate 50 MG, QUEtiapine Fumarate 12.5 MG PO SCH (16:36)
[2019-09-04] MEDS: Albuterol Nebulizer 2.5mg/3mL HHN SCH ×5 (00:15→19:05)
[2019-09-04] MEDS: Levothyroxine 0.05 Mg Tab PO SCH (06:47)
[2019-09-04] MEDS: INSULIN LISPRO SLIDING SCALE 100 UNITS/ML UNIT SUBQ SCH ×4 (06:48→20:33)
[2019-09-04] MEDS: QUEtiapine Fumarate 50 MG, QUEtiapine Fumarate 12.5 MG PO SCH ×2 (09:03→16:27)
[2019-09-04] MEDS: Potassium Chloride 10 mEq ER Tab PO SCH ×2 (09:03→09:05)
[2019-09-04] MEDS: Aspirin 81mg Chewable Tab PO SCH (09:04)
[2019-09-04] MEDS: Ferrous Sulfate 325 MG TAB PO SCH ×2 (09:04→16:26)
[2019-09-04] MEDS: Budesonide 0.5 Mg/2 mL Ud HHN SCH ×2 (09:05→16:26)
--- NOTE | 2019-09-04 15:00 | Internal Medicine Prog Note ---
Internal Medicine Subjective - Subjective Service Date: 09/04/19 Patient is:: awake, interactive, ambulating Per staff patient has:: no adverse event, no episodes of fall Internal Medicine Objective - Results Recent Labs: Laboratory Last Values POC Glucose 190 MG/DL (70 - 105) H 09/04/19 06:32 - Physical Exam Vitals and I&O: Vital Signs Temp 97.8 F 09/04/19 14:00 Pulse 91 09/04/19 14:00 Resp 20 09/04/19 14:00 BP 156/76 09/04/19 14:00 Pulse Ox 96 09/04/19 14:00 Intake & Output 09/03/19 09/04/19 09/04/19 18:59 06:59 18:59 Intake Total 1000 120 Balance 1000 120 Intake: Oral 1000 120 Other: # Voids 4 2 # Bowel Movements 1 0 Active Medications: Current Medications Albuterol Sulfate (Albuterol 2.5mg/3ml Neb Ud) 2.5 mg HHN Q6HR [facility] Stop: 10/26/19 17:59 Last Admin: 09/04/19 06:15 Dose: Not Given Allopurinol (Zyloprim) 100 mg PO DAILY [facility] Stop: 10/27/19 08:59 Last Admin: 09/04/19 09:04 Dose: 100 mg Aspirin (Aspirin Chewable) 81 mg PO DAILY [facility] Stop: 10/27/19 08:59 Last Admin: 09/04/19 09:04 Dose: 81 mg Brimonidine Tartrate (Alphagan 0.1% Ophth Soln) 1 drop EACH EYE HS [facility] Stop: 10/26/19 20:59 Last Admin: 09/03/19 20:55 Dose: 1 drop Budesonide (Pulmicort) 0.5 mg HHN BID [facility] Stop: 10/26/19 16:59 Last Admin: 09/04/19 09:05 Dose: 0.5 mg Carvedilol (Coreg) 6.25 mg PO BID [facility] Stop: 10/26/19 16:59 Last Admin: 09/04/19 09:04 Dose: 6.25 mg Dextrose (Glutose 40%) 18.75 gm PO PRN PRN PRN Reason: BS Below 70 if tolerate po Stop: 10/27/19 11:28 Donepezil HCl (Aricept) 5 mg PO HS [facility] Stop: 10/30/19 20:59 Last Admin: 09/03/19 20:55 Dose: 5 mg Famotidine (Pepcid) 20 mg PO QDAC [facility] Stop: 10/31/19 07:29 Last Admin: 09/04/19 06:47 Dose: Not Given Ferrous Sulfate (Iron) 325 mg PO BID [facility] Stop: 10/26/19 16:59 Last Admin: 09/04/19 09:04 Dose: 325 mg Fluoxetine HCl (Prozac) 20 mg PO DAILY [facility]; Protocol Stop: 10/27/19 08:59 Last Admin: 09/04/19 09:04 Dose: 20 mg Furosemide (Lasix) 20 mg PO DAILY [facility] Stop: 10/27/19 08:59 Last Admin: 09/04/19 09:03 Dose: 20 mg Glimepiride (Amaryl) 2 mg PO BID [facility] Stop: 10/26/19 16:59 Last Admin: 09/04/19 09:04 Dose: 2 mg Glucagon (Glucagen) 1 mg IM PRN PRN PRN Reason: BS Below 70 if not tolerate po Stop: 10/27/19 11:28 Insulin Human Lispro (Humalog Insulin Sliding Scale) 0 units SUBQ ACHS [facility]; Protocol Stop: 10/27/19 11:29 Last Admin: 09/04/19 12:10 Dose: Not Given Latanoprost (Xalatan 0.005% Ophth Soln) 1 drop EACH EYE [facility] Stop: 10/26/19 20:59 Last Admin: 09/03/19 20:55 Dose: 1 drop Levothyroxine Sodium (Synthroid) 0.05 mg PO QDAC [facility] Stop: 10/27/19 07:29 Last Admin: 09/04/19 06:47 Dose: Not Given Lorazepam (Ativan) 0.5 mg PO Q4HR PRN; Protocol PRN Reason: Anxiety Stop: 10/26/19 01:34 Last Admin: 09/03/19 23:52 Dose: 0.5 mg Metformin HCl (Glucophage) 500 mg PO DAILY [facility] Stop: 10/27/19 08:59 Last Admin: 09/04/19 09:04 Dose: 500 mg Nitroglycerin (Nitrostat) 0.4 mg SL Q5MIN PRN PRN Reason: Chest Pain Stop: 10/26/19 13:25 Potassium Chloride (Klor-Con) 10 meq PO DAILY [facility] Stop: 10/27/19 08:59 Last Admin: 09/04/19 09:03 Dose: 10 meq Quetiapine Fumarate 50 mg/ (Quetiapine Fumarate 12.5 mg) 62.5 mg PO BID [facility] Stop: 11/02/19 16:59 Last Admin: 09/04/19 09:03 Dose: 62.5 mg Simvastatin (Zocor) 20 mg PO HS [facility]; Protocol Stop: 10/31/19 20:59 Last Admin: 09/03/19 20:55 Dose: 20 mg Valsartan (Diovan) 160 mg PO DAILY [facility] Stop: 10/27/19 08:59 Last Admin: 09/04/19 09:05 Dose: 160 mg Zolpidem Tartrate (Ambien) 5 mg PO HS PRN PRN Reason: Insomnia Stop: 10/26/19 01:35 Last Admin: 08/28/19 23:29 Dose: 5 mg HEENT: NC/AT Neck: Supple Lungs: CTAB Cardiovascular: RRR, Normal S1, Normal S2 Abdomen: soft, non-tender Extremities: clear Internal Medicine Assmt/Plan - Assessment Assessment: 1. COPD 2. DM/HTN 3. Psychosis - Plan Plan: will start insulin sliding scale insulin continue metformin continue albuterol nebulizers continue bp monitoring d/w r.n. Nutritional Asmnt/Malnutr-PDOC - Dietary Evaluation Malnutrition Findings (Please click <Entered> for more info): Nutritional Asmnt/Malnutrition Start: 08/29/19 09: 11 Text: Status: Complete Freq: Protocol: Document 08/29/19 09:11 TERRIE (Rec: 08/29/19 09:29 MMPAYTON BRAGAN- [id number]) Nutritional Asmnt/Malnutrition Patient General Information Nutritional Screening Moderate Risk Diagnosis Psychosis Pertinent Medical Hx/Surgical Hx Diabetes, Hypertension, asthma , arthritis, dementia, parkinsons, hypothyroidism, glaucoma, hyperlipidemia. Subjective Information Patient was admitted from [facility]. Urdu speaking. Per nursing notes, patient very suspicious, paranoid that poison powder may be added to her food. Current Diet Order/ Nutrition Support 60 gm CCHO, VIVIEN Patient / S.O Not Indicated Pertinent Medications Pepcid, iron, lasix, glucagon, humalog, synthroid, Metformin , Klor-con Pertinent Labs POC glucose 269 5/6: HDL 44 Nutritional Hx/Data Height 1.45 m Height (Calculated Centimeters) 144.8 Current Weight (lbs) 67.585 kg Weight (Calculated Kilograms) 67.6 Weight (Calculated Grams) 44100.3 [place] Body Weight 92.5 % [place] Body Weight 161 Body Mass Index (BMI) 32.2 Recent Weight Change No Weight Status Obese GI Symptoms GI Symptoms Nausea Last BM 08/27 x 1 Difficult in: None Food Allergies No Cultural/Ethnic/Spiritism Belief none indicated Usual diet at home unknown Skin Integrity/Comment: Intact, James 21 Current %PO Good (75-100%) Estimated Nutritional Goals BEE in Kcals: Adj wt of IBW Calories/Kcals/Kg Adj BW 48.4 kg 25-30 kcal/kg Kcals Calculated ~0979-8354 kcal/day Protein: Adj wt of IBW Protein g/k-1.2 gm/kg Protein Calculated ~50-60 gm/day Fluid: ml ~7749-6976 ml/day (1 ml/kcal) Nutritional Problem 1. Problem Problem Altered nutrition related lab values related to Etiology uncontrolled hyperglycemia aeb Signs/Symptoms: POC glucose 269 Intervention/Recommendation Comments 1. Consider modifying diet to 45 gm CCHO to better meet nutrient needs. 2. MD to modify insulin regimen as needed for optimal glycemic control. Expected Outcomes/Goals Expected Outcomes/Goals Oral intake >75% of meals, weight stable or trend toward IBW, nutrition related lab values WNL. F/U LR 09/04-
--- NOTE | 2019-09-04 16:18 | Progress Notes ---
DATE: 09/02/2019 Case was discussed with staff of the patient, reviewed records. The patient continues to have poor insight, continues to be unpredictable, impulsive, needing redirection. She continues to be easily agitated, sleeping better, eating better. No side effects with the medication, no sedation, no nausea, no extrapyramidal symptoms. She is speaking in Singaporean, but today she was calmer. She was feeding herself. She has been taking medication with no side effects. The family would like for her to go home where she is stable, Singaporean speaking. She tolerated the Seroquel with no side effects, no sedation, no nausea, and no extrapyramidal symptoms. We will continue outpatient group therapy, milieu therapy, adjust medication as needed. JOB# [id number]
--- NOTE | 2019-09-04 16:18 | Progress Notes ---
DATE: 09/03/2019 Case was discussed with staff of the patient, reviewed records. The patient continues to be somewhat confused, easily agitated, unable to make safe plan for self-care. Continues to have episodes of agitation, acting out. She has been compliant with the medication with no side effects, no sedation, no nausea, no extrapyramidal symptoms. I will be increasing her Seroquel to 62.5 mg twice a day. No side effects with the medication, no sedation, no nausea, no extrapyramidal symptoms. Her family wants her to go home with them. We will continue to work with the patient in group therapy, milieu therapy, and adjust the medication as needed. JOB# [id number]
--- NOTE | 2019-09-04 16:44 | Progress Notes ---
DATE: 09/04/2019 FOLLOWUP PROGRESS NOTE Case was discussed with staff of the patient, reviewed records. The patient continues to have poor insight. Continues to be unable to explain herself. No side effects with the medication, no sedation, no nausea, no extrapyramidal symptoms. The family would like her to go home. She is a bit more mellow and easier to redirect, unable to explain herself, at times getting easily agitated. We will continue to work with the patient in group therapy, milieu therapy, and adjust the medications as needed. JOB# [id number]
[2019-09-05] MEDS: Albuterol Nebulizer 2.5mg/3mL HHN SCH ×4 (06:50→18:08)
[2019-09-05] MEDS: INSULIN LISPRO SLIDING SCALE 100 UNITS/ML UNIT SUBQ SCH ×4 (06:51→21:20)
[2019-09-05] MEDS: Levothyroxine 0.05 Mg Tab PO SCH (06:51)
[2019-09-05] MEDS: Aspirin 81mg Chewable Tab PO SCH (09:05)
[2019-09-05] MEDS: Ferrous Sulfate 325 MG TAB PO SCH ×3 (09:06→18:05)
[2019-09-05] MEDS: Potassium Chloride 10 mEq ER Tab PO SCH ×2 (09:06→09:07)
[2019-09-05] MEDS: QUEtiapine Fumarate 50 MG, QUEtiapine Fumarate 12.5 MG PO SCH ×2 (09:06→18:06)
[2019-09-05] MEDS: Budesonide 0.5 Mg/2 mL Ud HHN SCH ×2 (09:07→18:08)
--- NOTE | 2019-09-05 18:59 | Progress Notes ---
DATE: 09/05/2019 SUBJECTIVE: A 74-year-old female brought in by sons. Unfortunately, I tried to go to talk to her this morning, was not amenable to speaking with me. I was unable to gather much information out of her. Per Dr. Hernández saw the patient yesterday, poor insight. Family wants her to go home. She was calmer, more redirectable, at times, gets agitated. Per nursing staff, slept about 8 hours, confused, distracted, forgetful, preoccupied, responding to internal stimuli per nursing staff. I tried for some time to speak with her, but unfortunately she was not really amenable to speaking with me. Medications reviewed. Labs reviewed. Vitals reviewed. Blood pressure 156/76, pulse of 91. MENTAL STATUS: Stated age. Confusion noted, irritable, resistive to talk to me. ASSESSMENT: A 74-year-old female, calmer per Dr. Hernández, still irritable per staff, confused. PLAN: We will continue to monitor pending safe discharge plans, she may be approaching her baseline, less agitated behaviors per staff, more redirectable. JOB# [id number]
[2019-09-06] MEDS: Albuterol Nebulizer 2.5mg/3mL HHN SCH ×4 (00:30→17:02)
[2019-09-06] MEDS: Levothyroxine 0.05 Mg Tab PO SCH (06:39)
[2019-09-06] MEDS: INSULIN LISPRO SLIDING SCALE 100 UNITS/ML UNIT SUBQ SCH ×4 (06:39→20:45)
[2019-09-06] MEDS: Budesonide 0.5 Mg/2 mL Ud HHN SCH ×2 (09:25→17:02)
[2019-09-06] MEDS: QUEtiapine Fumarate 50 MG, QUEtiapine Fumarate 12.5 MG PO SCH ×2 (09:26→16:58)
[2019-09-06] MEDS: Potassium Chloride 10 mEq ER Tab PO SCH (09:27)
[2019-09-06] MEDS: Aspirin 81mg Chewable Tab PO SCH (09:28)
[2019-09-06] MEDS: Ferrous Sulfate 325 MG TAB PO SCH ×2 (09:28→16:58)
--- NOTE | 2019-09-06 12:33 | Progress Notes ---
DATE: 09/06/2019 SUBJECTIVE: The patient is currently in the hospital, remains anxious, paranoid, responding to internal stimuli, seems that she has some ritual before taking her medications. She is a 74-year-old female who remains with ongoing concerns for psychotic symptoms, answering some questions. Mood "okay". Sleeping "okay". Notes a lot of anxiety, worries, poor orientation, essentially knows her name, seems she may have some idea that she is in the hospital. She is taking medications but goes through ritual before taking them. Staff noting she is forgetful, distracted, and preoccupied. She did take her medications at night. Medications were reviewed. Labs reviewed. Vitals were reviewed. Blood pressure 163/83, pulse of 85. ASSESSMENT: The patient is currently in the hospital, ongoing symptoms, concerns for underlying psychosis, possibly obsessive compulsive disorder, mood disorder, anxiety, concerns for dementia given how confused she is. PLAN: We will continue to monitor. Medications were noted, discussed with staff. Nursing notes were reviewed. She is pretty calm this morning. JOB# [id number]
[2019-09-07] MEDS: Albuterol Nebulizer 2.5mg/3mL HHN SCH ×4 (00:25→17:10)
[2019-09-07] MEDS: INSULIN LISPRO SLIDING SCALE 100 UNITS/ML UNIT SUBQ SCH ×4 (06:48→21:40)
[2019-09-07] MEDS: Levothyroxine 0.05 Mg Tab PO SCH (07:04)
[2019-09-07] MEDS: Budesonide 0.5 Mg/2 mL Ud HHN SCH ×2 (09:08→16:14)
[2019-09-07] MEDS: QUEtiapine Fumarate 50 MG, QUEtiapine Fumarate 12.5 MG PO SCH (09:11)
[2019-09-07] MEDS: Aspirin 81mg Chewable Tab PO SCH (09:13)
[2019-09-07] MEDS: Potassium Chloride 10 mEq ER Tab PO SCH (09:22)
[2019-09-07] MEDS: Ferrous Sulfate 325 MG TAB PO SCH ×2 (09:22→17:11)
--- NOTE | 2019-09-07 15:02 | Internal Medicine Prog Note ---
Internal Medicine Subjective - Subjective Service Date: 09/07/19 Patient is:: awake, interactive, ambulating Per staff patient has:: no adverse event, no episodes of fall Internal Medicine Objective - Results Recent Labs: Laboratory Last Values POC Glucose 221 MG/DL (70 - 105) H 09/07/19 11:07 - Physical Exam Vitals and I&O: Vital Signs Temp 97.4 F 09/07/19 06:28 Pulse 89 09/07/19 09:23 Resp 18 09/07/19 08:00 BP 158/86 09/07/19 09:23 Pulse Ox 98 09/07/19 06:28 Intake & Output 09/06/19 09/07/19 09/07/19 18:59 06:59 18:59 Intake Total 800 360 Balance 800 360 Intake: Oral 800 360 Other: # Voids 3 1 # Bowel Movements 0 Active Medications: Current Medications Albuterol Sulfate (Albuterol 2.5mg/3ml Neb Ud) 2.5 mg HHN Q6HR [facility] Stop: 10/26/19 17:59 Last Admin: 09/07/19 12:19 Dose: Not Given Allopurinol (Zyloprim) 100 mg PO DAILY [facility] Stop: 10/27/19 08:59 Last Admin: 09/07/19 09:13 Dose: 100 mg Aspirin (Aspirin Chewable) 81 mg PO DAILY [facility] Stop: 10/27/19 08:59 Last Admin: 09/07/19 09:13 Dose: 81 mg Brimonidine Tartrate (Alphagan 0.1% Ophth Soln) 1 drop EACH EYE HS [facility] Stop: 10/26/19 20:59 Last Admin: 09/06/19 20:44 Dose: 1 drop Budesonide (Pulmicort) 0.5 mg HHN BID [facility] Stop: 10/26/19 16:59 Last Admin: 09/07/19 09:08 Dose: Not Given Carvedilol (Coreg) 6.25 mg PO BID [facility] Stop: 10/26/19 16:59 Last Admin: 09/07/19 09:13 Dose: 6.25 mg Dextrose (Glutose 40%) 18.75 gm PO PRN PRN PRN Reason: BS Below 70 if tolerate po Stop: 10/27/19 11:28 Donepezil HCl (Aricept) 5 mg PO HS [facility] Stop: 10/30/19 20:59 Last Admin: 09/06/19 20:44 Dose: Not Given Famotidine (Pepcid) 20 mg PO QDAC [facility] Stop: 10/31/19 07:29 Last Admin: 09/07/19 07:04 Dose: Not Given Ferrous Sulfate (Iron) 325 mg PO BID [facility] Stop: 10/26/19 16:59 Last Admin: 09/07/19 09:22 Dose: Not Given Fluoxetine HCl (Prozac) 20 mg PO DAILY [facility]; Protocol Stop: 10/27/19 08:59 Last Admin: 09/07/19 09:13 Dose: 20 mg Furosemide (Lasix) 20 mg PO DAILY [facility] Stop: 10/27/19 08:59 Last Admin: 09/07/19 09:13 Dose: 20 mg Glimepiride (Amaryl) 2 mg PO BID [facility] Stop: 10/26/19 16:59 Last Admin: 09/07/19 09:12 Dose: 2 mg Glucagon (Glucagen) 1 mg IM PRN PRN PRN Reason: BS Below 70 if not tolerate po Stop: 10/27/19 11:28 Insulin Human Lispro (Humalog Insulin Sliding Scale) 0 units SUBQ ACHS [facility]; Protocol Stop: 10/27/19 11:29 Last Admin: 09/07/19 12:26 Dose: 5 units Latanoprost (Xalatan 0.005% Ophth Soln) 1 drop EACH EYE HS [facility] Stop: 10/26/19 20:59 Last Admin: 09/06/19 20:44 Dose: 1 drop Levothyroxine Sodium (Synthroid) 0.05 mg PO QDAC [facility] Stop: 10/27/19 07:29 Last Admin: 09/07/19 07:04 Dose: Not Given Lorazepam (Ativan) 0.5 mg PO Q4HR PRN; Protocol PRN Reason: Anxiety Stop: 10/26/19 01:34 Last Admin: 09/05/19 18:07 Dose: 0.5 mg Metformin HCl (Glucophage) 500 mg PO DAILY [facility] Stop: 10/27/19 08:59 Last Admin: 09/07/19 09:25 Dose: Not Given Nitroglycerin (Nitrostat) 0.4 mg SL Q5MIN PRN PRN Reason: Chest Pain Stop: 10/26/19 13:25 Potassium Chloride (Klor-Con) 10 meq PO DAILY [facility] Stop: 10/27/19 08:59 Last Admin: 09/07/19 09:22 Dose: Not Given Quetiapine Fumarate (Seroquel) 75 mg PO BID [facility] Stop: 11/06/19 16:59 Simvastatin (Zocor) 20 mg PO HS [facility]; Protocol Stop: 10/31/19 20:59 Last Admin: 09/06/19 20:44 Dose: 20 mg Valsartan (Diovan) 160 mg PO DAILY [facility] Stop: 10/27/19 08:59 Last Admin: 09/07/19 09:23 Dose: Not Given Zolpidem Tartrate (Ambien) 5 mg PO HS PRN PRN Reason: Insomnia Stop: 10/26/19 01:35 Last Admin: 08/28/19 23:29 Dose: 5 mg HEENT: NC/AT Neck: Supple Lungs: CTAB Cardiovascular: RRR, Normal S1, Normal S2 Abdomen: soft, non-tender Extremities: clear Neurological: no change Internal Medicine Assmt/Plan - Assessment Assessment: 1. COPD 2. DM, poorly controlled 3. Psychosis - Plan Plan: increase metformin to 500 mg po bid check hga1c continue albuterol nebulizers continue bp monitoring d/w r.n. Nutritional Asmnt/Malnutr-PDOC - Dietary Evaluation Malnutrition Findings (Please click <Entered> for more info): Nutritional Asmnt/Malnutrition Start: 08/29/19 09: 11 Text: Status: Complete Freq: Protocol: Document 08/29/19 09:11 TERRIE (Rec: 08/29/19 09:29 TERRIE MANPREET- [id number]) Nutritional Asmnt/Malnutrition Patient General Information Nutritional Screening Moderate Risk Diagnosis Psychosis Pertinent Medical Hx/Surgical Hx Diabetes, Hypertension, asthma , arthritis, dementia, parkinsons, hypothyroidism, glaucoma, hyperlipidemia. Subjective Information Patient was admitted from [facility]. Turkmen speaking. Per nursing notes, patient very suspicious, paranoid that poison powder may be added to her food. Current Diet Order/ Nutrition Support 60 gm CCHO, VIVIEN Patient / S.O Not Indicated Pertinent Medications Pepcid, iron, lasix, glucagon, humalog, synthroid, Metformin , Klor-con Pertinent Labs POC glucose 269 5/6: HDL 44 Nutritional Hx/Data Height 1.45 m Height (Calculated Centimeters) 144.8 Current Weight (lbs) 67.585 kg Weight (Calculated Kilograms) 67.6 Weight (Calculated Grams) 55940.3 [place] Body Weight 92.5 % [place] Body Weight 161 Body Mass Index (BMI) 32.2 Recent Weight Change No Weight Status Obese GI Symptoms GI Symptoms Nausea Last BM 5 x 1 Difficult in: None Food Allergies No Cultural/Ethnic/Caodaism Belief none indicated Usual diet at home unknown Skin Integrity/Comment: Intact, James 21 Current %PO Good (75-100%) Estimated Nutritional Goals BEE in Kcals: Adj wt of IBW Calories/Kcals/Kg Adj BW 48.4 kg 25-30 kcal/kg Kcals Calculated ~3974-0733 kcal/day Protein: Adj wt of IBW Protein g/k-1.2 gm/kg Protein Calculated ~50-60 gm/day Fluid: ml ~9649-5132 ml/day (1 ml/kcal) Nutritional Problem 1. Problem Problem Altered nutrition related lab values related to Etiology uncontrolled hyperglycemia aeb Signs/Symptoms: POC glucose 269 Intervention/Recommendation Comments 1. Consider modifying diet to 45 gm CCHO to better meet nutrient needs. 2. MD to modify insulin regimen as needed for optimal glycemic control. Expected Outcomes/Goals Expected Outcomes/Goals Oral intake >75% of meals, weight stable or trend toward IBW, nutrition related lab values WNL. F/U LR 09/04-
--- NOTE | 2019-09-07 19:33 | Progress Notes ---
DATE: 09/07/2019 Case was discussed with staff of the patient, reviewed records. I also reviewed the lab work. Vitals are stable. Gait is normal. The patient continues to be wandering in the unit. Continues to be responding to internal stimuli. Continues to be unpredictable, impulsive, needing redirection. No side effects with the medication, no sedation, no nausea, no extrapyramidal symptoms. Continues to be unable to make safe plan for self-care. I will be increasing her Seroquel further to 75 mg twice a day, tolerates the recent increase to 62.5 mg twice a day. We will continue outpatient group therapy, milieu therapy, adjust medication as needed. JOB# [id number]
[2019-09-08] MEDS: Albuterol Nebulizer 2.5mg/3mL HHN SCH ×4 (00:05→17:50)
[2019-09-08] MEDS: INSULIN LISPRO SLIDING SCALE 100 UNITS/ML UNIT SUBQ SCH ×4 (06:40→21:51)
[2019-09-08] MEDS: Levothyroxine 0.05 Mg Tab PO SCH (06:49)
[2019-09-08] MEDS: Budesonide 0.5 Mg/2 mL Ud HHN SCH ×2 (09:09→16:09)
[2019-09-08] MEDS: Potassium Chloride 10 mEq ER Tab PO SCH (09:40)
[2019-09-08] MEDS: Ferrous Sulfate 325 MG TAB PO SCH ×2 (09:40→16:56)
[2019-09-08] MEDS: Aspirin 81mg Chewable Tab PO SCH (09:41)
--- NOTE | 2019-09-08 14:02 | Progress Notes ---
DATE: 09/08/2019 Case was discussed with staff of the patient, reviewed records. The patient continues to be confused, pacing the unit. She continues to be unable to make safe plan for self-care, unpredictable, impulsive, needing redirection. She is sleeping and eating better. No side effects with the medication, no sedation, no nausea, no extrapyramidal symptoms. She is tolerating increase in Seroquel yesterday to 75 mg twice a day. We will continue outpatient group therapy, milieu therapy, adjust medication as needed. JOB# [id number]
[2019-09-09] MEDS: Albuterol Nebulizer 2.5mg/3mL HHN SCH ×4 (00:10→18:15)
[2019-09-09] MEDS: INSULIN LISPRO SLIDING SCALE 100 UNITS/ML UNIT SUBQ SCH ×4 (06:44→21:15)
[2019-09-09] MEDS: Levothyroxine 0.05 Mg Tab PO SCH (08:30)
[2019-09-09] MEDS: Budesonide 0.5 Mg/2 mL Ud HHN SCH ×2 (09:41→18:00)
[2019-09-09] MEDS: Aspirin 81mg Chewable Tab PO SCH (09:53)
[2019-09-09] MEDS: Ferrous Sulfate 325 MG TAB PO SCH ×2 (09:53→16:54)
[2019-09-09] MEDS: Potassium Chloride 10 mEq ER Tab PO SCH (09:53)
--- NOTE | 2019-09-09 10:40 | Progress Notes ---
DATE: 09/09/2019 Case was discussed with staff of the patient, reviewed records. The patient continues to be impulsive, unpredictable, continues to be pacing in the unit at times, unable to take care of herself or make safe plan for self-care, easily agitated. She is compliant with the medication with no side effects, no sedation, no nausea, no extrapyramidal symptoms. MENTAL STATUS EXAMINATION: Her affect is flat. Thoughts are very concrete. Unable to make safe plan for self-care, easily agitated. PLAN: The patient is still not ready to go to a lesser level of care. I did introduce and adjust her Seroquel 2 days ago to 75 mg twice a day. We will give her more time and will outpatient group therapy, milieu therapy and adjust medications as needed. JOB# [id number]
[2019-09-10] MEDS: Albuterol Nebulizer 2.5mg/3mL HHN SCH ×4 (00:03→18:28)
[2019-09-10] MEDS: Levothyroxine 0.05 Mg Tab PO SCH (07:02)
[2019-09-10] MEDS: INSULIN LISPRO SLIDING SCALE 100 UNITS/ML UNIT SUBQ SCH ×4 (07:02→20:15)
[2019-09-10] MEDS: Ferrous Sulfate 325 MG TAB PO SCH ×2 (09:16→16:27)
[2019-09-10] MEDS: Aspirin 81mg Chewable Tab PO SCH (09:16)
[2019-09-10] MEDS: Budesonide 0.5 Mg/2 mL Ud HHN SCH ×2 (09:26→16:27)
[2019-09-10] MEDS: Potassium Chloride 10 mEq ER Tab PO SCH (09:27)
--- NOTE | 2019-09-10 11:31 | Progress Notes ---
DATE: 09/10/2019 SUBJECTIVE: The patient has been oppositional, refusing to take some of her medications like blood pressure, gout. She is very hard to redirect. Continues to have poor insight, unpredictable, impulsive, needing redirection. She did not sleep well last night at all. Unable to carry on a reasonable conversation, pacing the unit. PLAN: I will be increasing her Seroquel to 100 mg twice a day. The patient, however, did take her psychotropic medication this morning. Also, I will be adding Depakote to her medication to help with her lack of sleep, agitated behavior. I did call her son yesterday as he called me. I tried to call the family again. Also, working on discharge plan. family would like her to go home and no side effects with the medication, no sedation, no nausea, no extrapyramidal symptoms. We will continue outpatient group therapy, milieu therapy, adjust the medication as needed. JOB# [id number] ANTONIO
--- NOTE | 2019-09-10 15:23 | Internal Medicine Prog Note ---
Internal Medicine Subjective - Subjective Service Date: 09/10/19 Patient seen and examined:: without staff Patient is:: awake, interactive, ambulating Per staff patient has:: no adverse event, no episodes of fall Internal Medicine Objective - Results Recent Labs: Laboratory Last Values POC Glucose 170 MG/DL (70 - 105) H 09/10/19 12:03 - Physical Exam Vitals and I&O: Vital Signs Temp 97.2 F 09/10/19 14:00 Pulse 96 09/10/19 14:00 Resp 18 09/10/19 14:00 BP 121/72 09/10/19 14:00 Pulse Ox 98 09/10/19 14:00 Intake & Output 09/09/19 09/10/19 09/10/19 18:59 06:59 18:59 Intake Total 800 120 Balance 800 120 Intake: Oral 800 120 Other: # Voids 1 # Bowel Movements 0 Active Medications: Current Medications Albuterol Sulfate (Albuterol 2.5mg/3ml Neb Ud) 2.5 mg HHN Q6HR [facility] Stop: 10/26/19 17:59 Last Admin: 09/10/19 12:26 Dose: Not Given Allopurinol (Zyloprim) 100 mg PO DAILY [facility] Stop: 10/27/19 08:59 Last Admin: 09/10/19 09:26 Dose: Not Given Aspirin (Aspirin Chewable) 81 mg PO DAILY [facility] Stop: 10/27/19 08:59 Last Admin: 09/10/19 09:16 Dose: 81 mg Brimonidine Tartrate (Alphagan 0.1% Ophth Soln) 1 drop EACH EYE HS [facility] Stop: 10/26/19 20:59 Last Admin: 09/09/19 20:53 Dose: 1 drop Budesonide (Pulmicort) 0.5 mg HHN BID [facility] Stop: 10/26/19 16:59 Last Admin: 09/10/19 09:26 Dose: Not Given Carvedilol (Coreg) 6.25 mg PO BID [facility] Stop: 10/26/19 16:59 Last Admin: 09/10/19 09:12 Dose: 6.25 mg Dextrose (Glutose 40%) 18.75 gm PO PRN PRN PRN Reason: BS Below 70 if tolerate po Stop: 10/27/19 11:28 Divalproex Sodium (Depakote Dr) 250 mg PO BID [facility]; Protocol Stop: 11/09/19 08:59 Donepezil HCl (Aricept) 5 mg PO HS [facility] Stop: 10/30/19 20:59 Last Admin: 09/09/19 20:53 Dose: Not Given Famotidine (Pepcid) 20 mg PO QDAC [facility] Stop: 10/31/19 07:29 Last Admin: 09/10/19 07:02 Dose: 20 mg Ferrous Sulfate (Iron) 325 mg PO BID [facility] Stop: 10/26/19 16:59 Last Admin: 09/10/19 09:16 Dose: Not Given Fluoxetine HCl (Prozac) 20 mg PO DAILY [facility]; Protocol Stop: 10/27/19 08:59 Last Admin: 09/10/19 09:14 Dose: 20 mg Furosemide (Lasix) 20 mg PO DAILY [facility] Stop: 10/27/19 08:59 Last Admin: 09/10/19 09:13 Dose: 20 mg Glimepiride (Amaryl) 2 mg PO BID [facility] Stop: 10/26/19 16:59 Last Admin: 09/10/19 09:27 Dose: Not Given Glucagon (Glucagen) 1 mg IM PRN PRN PRN Reason: BS Below 70 if not tolerate po Stop: 10/27/19 11:28 Insulin Human Lispro (Humalog Insulin Sliding Scale) 0 units SUBQ ACHS [facility]; Protocol Stop: 10/27/19 11:29 Last Admin: 09/10/19 11:40 Dose: Not Given Latanoprost (Xalatan 0.005% Ophth Soln) [address] [facility] Stop: 10/26/19 20:59 Last Admin: 09/09/19 20:53 Dose: 1 drop Levothyroxine Sodium (Synthroid) 0.05 mg PO QDAC [facility] Stop: 10/27/19 07:29 Last Admin: 09/10/19 07:02 Dose: Not Given Lorazepam (Ativan) 0.5 mg PO Q4HR PRN; Protocol PRN Reason: Anxiety Stop: 10/26/19 01:34 Last Admin: 09/08/19 21:50 Dose: 0.5 mg Metformin HCl (Glucophage) 500 mg PO DAILY [facility] Stop: 10/27/19 08:59 Last Admin: 09/10/19 09:12 Dose: 500 mg Nitroglycerin (Nitrostat) 0.4 mg SL Q5MIN PRN PRN Reason: Chest Pain Stop: 10/26/19 13:25 Potassium Chloride (Klor-Con) 10 meq PO DAILY [facility] Stop: 10/27/19 08:59 Last Admin: 09/10/19 09:27 Dose: Not Given Quetiapine Fumarate (Seroquel) 100 mg PO BID [facility] Stop: 11/09/19 08:59 Last Admin: 09/10/19 09:12 Dose: 100 mg Simvastatin (Zocor) 20 mg PO HS [facility]; Protocol Stop: 10/31/19 20:59 Last Admin: 09/09/19 20:53 Dose: Not Given Valsartan (Diovan) 160 mg PO DAILY [facility] Stop: 10/27/19 08:59 Last Admin: 09/10/19 09:13 Dose: 160 mg Zolpidem Tartrate (Ambien) 5 mg PO HS PRN PRN Reason: Insomnia Stop: 10/26/19 01:35 Last Admin: 08/28/19 23:29 Dose: 5 mg General: weak HEENT: NC/AT Neck: Supple Lungs: CTAB Cardiovascular: RRR, Normal S1, Normal S2 Abdomen: soft, non-tender Extremities: clear Neurological: no change Internal Medicine Assmt/Plan - Assessment Assessment: 1. COPD 2. DM, poorly controlled 3. Psychosis - Plan Plan: increase metformin to 500 mg po bid check hga1c continue albuterol nebulizers continue bp monitoring d/w r.n. Nutritional Asmnt/Malnutr-PDOC - Dietary Evaluation Malnutrition Findings (Please click <Entered> for more info): Nutritional Asmnt/Malnutrition Start: 08/29/19 09: 11 Text: Status: Complete Freq: Protocol: Document 08/29/19 09:11 TERRIE (Rec: 08/29/19 09:29 TERRIE MANPREET- [id number]) Nutritional Asmnt/Malnutrition Patient General Information Nutritional Screening Moderate Risk Diagnosis Psychosis Pertinent Medical Hx/Surgical Hx Diabetes, Hypertension, asthma , arthritis, dementia, parkinsons, hypothyroidism, glaucoma, hyperlipidemia. Subjective Information Patient was admitted from [facility]. Gabonese speaking. Per nursing notes, patient very suspicious, paranoid that poison powder may be added to her food. Current Diet Order/ Nutrition Support 60 gm CCHO, VIVIEN Patient / S.O Not Indicated Pertinent Medications Pepcid, iron, lasix, glucagon, humalog, synthroid, Metformin , Klor-con Pertinent Labs POC glucose 269 6: HDL 44 Nutritional Hx/Data Height 1.45 m Height (Calculated Centimeters) 144.8 Current Weight (lbs) 67.585 kg Weight (Calculated Kilograms) 67.6 Weight (Calculated Grams) 80947.3 [place] Body Weight 92.5 % [place] Body Weight 161 Body Mass Index (BMI) 32.2 Recent Weight Change No Weight Status Obese GI Symptoms GI Symptoms Nausea Last BM 08/27 x 1 Difficult in: None Food Allergies No Cultural/Ethnic/Amish Belief none indicated Usual diet at home unknown Skin Integrity/Comment: Intact, James 21 Current %PO Good (75-100%) Estimated Nutritional Goals BEE in Kcals: Adj wt of IBW Calories/Kcals/Kg Adj BW 48.4 kg 25-30 kcal/kg Kcals Calculated ~0843-0386 kcal/day Protein: Adj wt of IBW Protein g/k-1.2 gm/kg Protein Calculated ~50-60 gm/day Fluid: ml ~0198-6404 ml/day (1 ml/kcal) Nutritional Problem 1. Problem Problem Altered nutrition related lab values related to Etiology uncontrolled hyperglycemia aeb Signs/Symptoms: POC glucose 269 Intervention/Recommendation Comments 1. Consider modifying diet to 45 gm CCHO to better meet nutrient needs. 2. MD to modify insulin regimen as needed for optimal glycemic control. Expected Outcomes/Goals Expected Outcomes/Goals Oral intake >75% of meals, weight stable or trend toward IBW, nutrition related lab values WNL. F/U LR 09/04-
[2019-09-11] MEDS: Albuterol Nebulizer 2.5mg/3mL HHN SCH ×4 (06:00→17:47)
[2019-09-11] MEDS: Levothyroxine 0.05 Mg Tab PO SCH (06:38)
[2019-09-11] MEDS: INSULIN LISPRO SLIDING SCALE 100 UNITS/ML UNIT SUBQ SCH ×4 (06:46→21:27)
[2019-09-11] MEDS: Aspirin 81mg Chewable Tab PO SCH (08:39)
[2019-09-11] MEDS: Budesonide 0.5 Mg/2 mL Ud HHN SCH ×2 (08:42→17:46)
[2019-09-11] MEDS: Potassium Chloride 10 mEq ER Tab PO SCH (08:51)
[2019-09-11] MEDS: Ferrous Sulfate 325 MG TAB PO SCH ×2 (08:51→17:46)
--- NOTE | 2019-09-11 13:50 | Progress Notes ---
DATE: 09/11/2019 Case was discussed with staff of the patient, reviewed records, also left a message to her son, Venkat, left a message trying to answer his question that he was trying to find out and I explained to him that she is showing progress that she has not slept before yesterday and yesterday she slept well and that I added to her new medications of Depakote and Aricept. The patient is currently taking her medications with psychotropic, but refuses some of her medications, which she is more the medication for medical condition. I did ask her son to try to persuade her to take it. The patient is sleeping well, eating well, better, continues to be somewhat confused, unable to make safe plan for self-care. Her family was not sure she was initially go home and no side effects with the medication, no sedation, no nausea. We will continue outpatient group therapy, milieu therapy, adjust medication as needed. JOB# [id number]
--- NOTE | 2019-09-11 14:09 | Internal Medicine Prog Note ---
Internal Medicine Subjective - Subjective Service Date: 09/11/19 Patient is:: awake, interactive, ambulating Per staff patient has:: no adverse event, no episodes of fall Internal Medicine Objective - Results Recent Labs: Laboratory Last Values POC Glucose 166 MG/DL (70 - 105) H 09/11/19 11:46 - Physical Exam Vitals and I&O: Vital Signs Temp 98.2 F 09/11/19 06:33 Pulse 63 09/11/19 08:52 Resp 17 09/11/19 08:00 BP 112/62 09/11/19 08:52 Pulse Ox 97 09/11/19 06:33 Intake & Output 09/10/19 09/11/19 09/11/19 18:59 06:59 18:59 Intake Total 800 120 Balance 800 120 Intake: Oral 800 120 Other: # Voids 3 1 # Bowel Movements 0 0 Active Medications: Current Medications Albuterol Sulfate (Albuterol 2.5mg/3ml Neb Ud) 2.5 mg HHN Q6HR [facility] Stop: 10/26/19 17:59 Last Admin: 09/11/19 12:25 Dose: Not Given Allopurinol (Zyloprim) 100 mg PO DAILY [facility] Stop: 10/27/19 08:59 Last Admin: 09/11/19 08:51 Dose: Not Given Aspirin (Aspirin Chewable) 81 mg PO DAILY [facility] Stop: 10/27/19 08:59 Last Admin: 09/11/19 08:39 Dose: 81 mg Brimonidine Tartrate (Alphagan 0.1% Ophth Soln) 1 drop EACH EYE HS [facility] Stop: 10/26/19 20:59 Last Admin: 09/10/19 20:08 Dose: 1 drop Budesonide (Pulmicort) 0.5 mg HHN BID [facility] Stop: 10/26/19 16:59 Last Admin: 09/11/19 08:42 Dose: Not Given Carvedilol (Coreg) 6.25 mg PO BID [facility] Stop: 10/26/19 16:59 Last Admin: 09/11/19 08:39 Dose: 6.25 mg Dextrose (Glutose 40%) 18.75 gm PO PRN PRN PRN Reason: BS Below 70 if tolerate po Stop: 10/27/19 11:28 Divalproex Sodium (Depakote Dr) 250 mg PO BID [facility]; Protocol Stop: 11/09/19 08:59 Last Admin: 09/11/19 10:25 Dose: 250 mg Donepezil HCl (Aricept) 5 mg PO HS [facility] Stop: 10/30/19 20:59 Last Admin: 09/10/19 20:08 Dose: 5 mg Famotidine (Pepcid) 20 mg PO QDAC [facility] Stop: 10/31/19 07:29 Last Admin: 09/11/19 06:38 Dose: 20 mg Ferrous Sulfate (Iron) 325 mg PO BID [facility] Stop: 10/26/19 16:59 Last Admin: 09/11/19 08:51 Dose: Not Given Fluoxetine HCl (Prozac) 20 mg PO DAILY [facility]; Protocol Stop: 10/27/19 08:59 Last Admin: 09/11/19 08:38 Dose: 20 mg Furosemide (Lasix) 20 mg PO DAILY [facility] Stop: 10/27/19 08:59 Last Admin: 09/11/19 08:40 Dose: 20 mg Glimepiride (Amaryl) 2 mg PO BID [facility] Stop: 10/26/19 16:59 Last Admin: 09/11/19 08:51 Dose: Not Given Glucagon (Glucagen) 1 mg IM PRN PRN PRN Reason: BS Below 70 if not tolerate po Stop: 10/27/19 11:28 Insulin Human Lispro (Humalog Insulin Sliding Scale) 0 units SUBQ ACHS [facility]; Protocol Stop: 10/27/19 11:29 Last Admin: 09/11/19 11:50 Dose: Not Given Latanoprost (Xalatan 0.005% Ophth Soln) 1 drop EACH EYE [facility] Stop: 10/26/19 20:59 Last Admin: 09/10/19 20:08 Dose: 1 drop Levothyroxine Sodium (Synthroid) 0.05 mg PO QDAC [facility] Stop: 10/27/19 07:29 Last Admin: 09/11/19 06:38 Dose: 0.05 mg Lorazepam (Ativan) 0.5 mg PO Q4HR PRN; Protocol PRN Reason: Anxiety Stop: 10/26/19 01:34 Last Admin: 09/08/19 21:50 Dose: 0.5 mg Metformin HCl (Glucophage) 500 mg PO BID [facility] Stop: 11/09/19 16:59 Last Admin: 09/11/19 08:39 Dose: 500 mg Nitroglycerin (Nitrostat) 0.4 mg SL Q5MIN PRN PRN Reason: Chest Pain Stop: 10/26/19 13:25 Potassium Chloride (Klor-Con) 10 meq PO DAILY [facility] Stop: 10/27/19 08:59 Last Admin: 09/11/19 08:51 Dose: Not Given Quetiapine Fumarate (Seroquel) 100 mg PO BID [facility] Stop: 11/09/19 08:59 Last Admin: 09/11/19 08:39 Dose: 100 mg Simvastatin (Zocor) 20 mg PO HS [facility]; Protocol Stop: 10/31/19 20:59 Last Admin: 09/10/19 20:08 Dose: 20 mg Valsartan (Diovan) 160 mg PO DAILY [facility] Stop: 10/27/19 08:59 Last Admin: 09/11/19 08:52 Dose: Not Given Zolpidem Tartrate (Ambien) 5 mg PO HS PRN PRN Reason: Insomnia Stop: 10/26/19 01:35 Last Admin: 09/10/19 20:08 Dose: 5 mg General: weak HEENT: NC/AT Neck: Supple Lungs: CTAB Cardiovascular: RRR, Normal S1, Normal S2 Abdomen: soft, non-tender Extremities: clear Neurological: no change Internal Medicine Assmt/Plan - Assessment Assessment: 1. COPD 2. DM, poorly controlled 3. Psychosis - Plan Plan: continue metformin 500 mg po bid continue sliding scale insulin continue albuterol nebulizers continue bp monitoring d/w r.n. Nutritional Asmnt/Malnutr-PDOC - Dietary Evaluation Malnutrition Findings (Please click <Entered> for more info): Nutritional Asmnt/Malnutrition Start: 08/29/19 09: 11 Text: Status: Complete Freq: Protocol: Document 08/29/19 09:11 TERRIE (Rec: 08/29/19 09:29 TERRIE CASE- [id number]) Nutritional Asmnt/Malnutrition Patient General Information Nutritional Screening Moderate Risk Diagnosis Psychosis Pertinent Medical Hx/Surgical Hx Diabetes, Hypertension, asthma , arthritis, dementia, parkinsons, hypothyroidism, glaucoma, hyperlipidemia. Subjective Information Patient was admitted from [facility]. Bhutanese speaking. Per nursing notes, patient very suspicious, paranoid that poison powder may be added to her food. Current Diet Order/ Nutrition Support 60 gm CCHO, VIVIEN Patient / S.O Not Indicated Pertinent Medications Pepcid, iron, lasix, glucagon, humalog, synthroid, Metformin , Klor-con Pertinent Labs POC glucose 269 08/25: HDL 44 Nutritional Hx/Data Height 1.45 m Height (Calculated Centimeters) 144.8 Current Weight (lbs) 67.585 kg Weight (Calculated Kilograms) 67.6 Weight (Calculated Grams) 34580.3 [place] Body Weight 92.5 % [place] Body Weight 161 Body Mass Index (BMI) 32.2 Recent Weight Change No Weight Status Obese GI Symptoms GI Symptoms Nausea Last BM 08/27 x 1 Difficult in: None Food Allergies No Cultural/Ethnic/Buddhist Belief none indicated Usual diet at home unknown Skin Integrity/Comment: Intact, James 21 Current %PO Good (75-100%) Estimated Nutritional Goals BEE in Kcals: Adj wt of IBW Calories/Kcals/Kg Adj BW 48.4 kg 25-30 kcal/kg Kcals Calculated ~5385-3770 kcal/day Protein: Adj wt of IBW Protein g/k-1.2 gm/kg Protein Calculated ~50-60 gm/day Fluid: ml ~9361-5427 ml/day (1 ml/kcal) Nutritional Problem 1. Problem Problem Altered nutrition related lab values related to Etiology uncontrolled hyperglycemia aeb Signs/Symptoms: POC glucose 269 Intervention/Recommendation Comments 1. Consider modifying diet to 45 gm CCHO to better meet nutrient needs. 2. MD to modify insulin regimen as needed for optimal glycemic control. Expected Outcomes/Goals Expected Outcomes/Goals Oral intake >75% of meals, weight stable or trend toward IBW, nutrition related lab values WNL. F/U LR 09/04-
[2019-09-12] MEDS: Albuterol Nebulizer 2.5mg/3mL HHN SCH ×4 (06:49→17:22)
[2019-09-12] MEDS: Levothyroxine 0.05 Mg Tab PO SCH (06:49)
[2019-09-12] MEDS: INSULIN LISPRO SLIDING SCALE 100 UNITS/ML UNIT SUBQ SCH ×4 (07:18→21:47)
[2019-09-12] MEDS: Budesonide 0.5 Mg/2 mL Ud HHN SCH ×2 (09:06→17:04)
[2019-09-12] MEDS: Potassium Chloride 10 mEq ER Tab PO SCH (09:12)
[2019-09-12] MEDS: Ferrous Sulfate 325 MG TAB PO SCH ×2 (09:12→17:04)
[2019-09-12] MEDS: Aspirin 81mg Chewable Tab PO SCH (09:14)
--- NOTE | 2019-09-12 23:38 | Progress Notes ---
DATE: 09/12/2019 IDENTIFYING DATA: A 74-year-old female who was recently brought in here by her 2 grown children for aggressive behavior towards her family. Medication reconciliation reviewed, includes Depakote 250 p.o. b.i.d., Aricept 5 mg, Prozac 20, Seroquel 100 mg p.o. b.i.d. Today on [id number] evaluation, the patient is observed in her room, easily gets up and starts walking and then starts screaming at innocent bystander passing through the [place]. She then returns back, starts talking to ____ conversation, very difficult to redirect her in the middle of the conversation. MENTAL STATUS EXAMINATION: Responding to ____. ASSESSMENT AND PLAN: The patient's ongoing psychotic symptoms are evident by the severe thought blocking and screaming at innocent bystanders in the hallway. She is unable to form a safe plan. JOB# [id number]
[2019-09-13] MEDS: Albuterol Nebulizer 2.5mg/3mL HHN SCH ×4 (00:30→17:19)
[2019-09-13] MEDS: INSULIN LISPRO SLIDING SCALE 100 UNITS/ML UNIT SUBQ SCH ×4 (06:42→21:04)
[2019-09-13] MEDS: Levothyroxine 0.05 Mg Tab PO SCH (06:43)
[2019-09-13] MEDS: Aspirin 81mg Chewable Tab PO SCH (09:23)
[2019-09-13] MEDS: Budesonide 0.5 Mg/2 mL Ud HHN SCH ×2 (09:34→16:22)
[2019-09-13] MEDS: Ferrous Sulfate 325 MG TAB PO SCH ×2 (09:35→16:22)
[2019-09-13] MEDS: Potassium Chloride 10 mEq ER Tab PO SCH (09:35)
--- NOTE | 2019-09-13 19:43 | Progress Notes ---
DATE: 09/13/2019 SUBJECTIVE: Overnight, the patient is flipping mattresses, believes that her son is getting drowned. Today on [id number] evaluation, consistently pacing throughout the hallway looking for her son, believes that he is dying. MENTAL STATUS EXAMINATION: Paranoid, believing that her son continues to despite not being true. ASSESSMENT AND PLAN: Severe dementia, recent addition of Depakote and Aricept, were added by the primary psychiatrist. She continues to be demented, believing her family continues to be at risk as noted above. We will continue to encourage medication, if she continues, may consider resume. JOB# [id number]
[2019-09-14] MEDS: INSULIN LISPRO SLIDING SCALE 100 UNITS/ML UNIT SUBQ SCH ×4 (06:43→21:32)
[2019-09-14] MEDS: Levothyroxine 0.05 Mg Tab PO SCH ×2 (06:44→06:54)
[2019-09-14] MEDS: Albuterol Nebulizer 2.5mg/3mL HHN SCH ×4 (06:44→18:21)
[2019-09-14] MEDS: Aspirin 81mg Chewable Tab PO SCH (09:00)
[2019-09-14] MEDS: Budesonide 0.5 Mg/2 mL Ud HHN SCH ×2 (09:18→17:09)
[2019-09-14] MEDS: Ferrous Sulfate 325 MG TAB PO SCH ×2 (09:19→17:21)
[2019-09-14] MEDS: Potassium Chloride 10 mEq ER Tab PO SCH (09:19)
--- NOTE | 2019-09-14 15:23 | Progress Notes ---
DATE: 09/14/2019 SUBJECTIVE: Case was discussed with staff of the patient, reviewed records. The patient continues to be acting bizarre, at times refusing medication. The patient is sleeping better now. The patient, however, continues to be unable to make safe plan for self-care. I called her son again, Mr. Lofton and this is maybe the fourth time I have called him and left a messages. I also explained to him that to call the staff and they could answer his questions and concerns as they are aware of her condition. I did add Depakote to her medication and so far she is still acting bizarre. She is still not ready to go to a lesser level of care. Continues to have poor insight. I will be adding Namenda to her medications as that may improve her condition and therefore her ability to cooperate with this and so far no side effects with the medication, no sedation, no nausea, no extrapyramidal symptoms. We will continue outpatient group therapy, milieu therapy, adjust the medication as needed. JOB# [id number]
[2019-09-15] MEDS: Albuterol Nebulizer 2.5mg/3mL HHN SCH ×4 (00:51→17:37)
[2019-09-15] MEDS: INSULIN LISPRO SLIDING SCALE 100 UNITS/ML UNIT SUBQ SCH ×4 (06:32→20:29)
[2019-09-15] MEDS: Levothyroxine 0.05 Mg Tab PO SCH (06:34)
[2019-09-15] MEDS: Ferrous Sulfate 325 MG TAB PO SCH ×3 (08:56→17:07)
[2019-09-15] MEDS: Aspirin 81mg Chewable Tab PO SCH (08:56)
[2019-09-15] MEDS: Budesonide 0.5 Mg/2 mL Ud HHN SCH ×2 (08:56→17:07)
[2019-09-15] MEDS: Potassium Chloride 10 mEq ER Tab PO SCH (08:56)
--- NOTE | 2019-09-15 14:36 | Internal Medicine Prog Note ---
Internal Medicine Subjective - Subjective Service Date: 09/15/19 Patient seen and examined:: without staff Patient is:: awake, interactive, ambulating Per staff patient has:: no adverse event, no episodes of fall Internal Medicine Objective - Results Recent Labs: Laboratory Last Values POC Glucose 144 MG/DL (70 - 105) H 09/15/19 11:54 - Physical Exam Vitals and I&O: Vital Signs Temp 97.1 F 09/15/19 13:56 Pulse 75 09/15/19 13:56 Resp 18 09/15/19 13:56 BP 136/87 09/15/19 13:56 Pulse Ox 98 09/15/19 13:56 Intake & Output 09/14/19 09/15/19 09/15/19 18:59 06:59 18:59 Intake Total 240 Balance 240 Intake: Oral 240 Other: # Voids 2 2 # Bowel Movements 0 Active Medications: Current Medications Albuterol Sulfate (Albuterol 2.5mg/3ml Neb Ud) 2.5 mg HHN Q6HR [facility] Stop: 10/26/19 17:59 Last Admin: 09/15/19 12:38 Dose: 2.5 mg Allopurinol (Zyloprim) 100 mg PO DAILY [facility] Stop: 10/27/19 08:59 Last Admin: 09/15/19 10:20 Dose: Not Given Aspirin (Aspirin Chewable) 81 mg PO DAILY [facility] Stop: 10/27/19 08:59 Last Admin: 09/15/19 08:56 Dose: 81 mg Brimonidine Tartrate (Alphagan 0.1% Ophth Soln) 1 drop EACH EYE HS [facility] Stop: 10/26/19 20:59 Last Admin: 09/14/19 21:52 Dose: Not Given Budesonide (Pulmicort) 0.5 mg HHN BID [facility] Stop: 10/26/19 16:59 Last Admin: 09/15/19 08:56 Dose: 0.5 mg Carvedilol (Coreg) 6.25 mg PO BID [facility] Stop: 10/26/19 16:59 Last Admin: 09/15/19 10:21 Dose: Not Given Dextrose (Glutose 40%) 18.75 gm PO PRN PRN PRN Reason: BS Below 70 if tolerate po Stop: 10/27/19 11:28 Divalproex Sodium (Depakote Dr) 250 mg PO Q8HR [facility]; Protocol Stop: 11/14/19 12:59 Last Admin: 09/15/19 13:12 Dose: 250 mg Donepezil HCl (Aricept) 5 mg PO HS [facility] Stop: 10/30/19 20:59 Last Admin: 09/14/19 21:52 Dose: Not Given Famotidine (Pepcid) 20 mg PO QDAC [facility] Stop: 10/31/19 07:29 Last Admin: 09/15/19 06:34 Dose: 20 mg Ferrous Sulfate (Iron) 325 mg PO BID [facility] Stop: 10/26/19 16:59 Last Admin: 09/15/19 10:19 Dose: Not Given Fluoxetine HCl (Prozac) 20 mg PO DAILY [facility]; Protocol Stop: 10/27/19 08:59 Last Admin: 09/15/19 08:57 Dose: 20 mg Furosemide (Lasix) 20 mg PO DAILY [facility] Stop: 10/27/19 08:59 Last Admin: 09/15/19 08:57 Dose: 20 mg Glimepiride (Amaryl) 2 mg PO BID [facility] Stop: 10/26/19 16:59 Last Admin: 09/15/19 08:57 Dose: 2 mg Glucagon (Glucagen) 1 mg IM PRN PRN PRN Reason: BS Below 70 if not tolerate po Stop: 10/27/19 11:28 Insulin Human Lispro (Humalog Insulin Sliding Scale) 0 units SUBQ ACHS [facility]; Protocol Stop: 10/27/19 11:29 Last Admin: 09/15/19 11:37 Dose: Not Given Latanoprost (Xalatan 0.005% Ophth Soln) 1 drop EACH EYE [facility] Stop: 10/26/19 20:59 Last Admin: 09/14/19 21:52 Dose: Not Given Levothyroxine Sodium (Synthroid) 0.05 mg PO QDAC [facility] Stop: 10/27/19 07:29 Last Admin: 09/15/19 06:34 Dose: 0.05 mg Lorazepam (Ativan) 0.5 mg PO Q4HR [facility]; Protocol PRN Reason: Anxiety Stop: 10/26/19 01:34 Last Admin: 09/15/19 10:18 Dose: 0.5 mg Memantine (Namenda) 5 mg PO DAILY [facility] Stop: 11/14/19 08:59 Last Admin: 09/15/19 08:57 Dose: 5 mg Metformin HCl (Glucophage) 500 mg PO BID [facility] Stop: 11/09/19 16:59 Last Admin: 09/15/19 10:19 Dose: Not Given Nitroglycerin (Nitrostat) 0.4 mg SL Q5MIN PRN PRN Reason: Chest Pain Stop: 10/26/19 13:25 Potassium Chloride (Klor-Con) 10 meq PO DAILY [facility] Stop: 10/27/19 08:59 Last Admin: 09/15/19 08:56 Dose: 10 meq Quetiapine Fumarate 100 mg/ (Quetiapine Fumarate 25 mg) 125 mg PO BID [facility] Stop: 11/14/19 16:59 Simvastatin (Zocor) 20 mg PO HS [facility]; Protocol Stop: 10/31/19 20:59 Last Admin: 09/14/19 21:53 Dose: 20 mg Valsartan (Diovan) 160 mg PO DAILY [facility] Stop: 10/27/19 08:59 Last Admin: 09/15/19 08:58 Dose: 160 mg Zolpidem Tartrate (Ambien) 5 mg PO HS PRN PRN Reason: Insomnia Stop: 10/26/19 01:35 Last Admin: 09/10/19 20:08 Dose: 5 mg General: weak HEENT: NC/AT Neck: Supple Lungs: CTAB Cardiovascular: RRR, Normal S1, Normal S2 Abdomen: soft, non-tender Extremities: clear Neurological: no change Internal Medicine Assmt/Plan - Assessment Assessment: 1. COPD 2. DM, poorly controlled 3. Psychosis - Plan Plan: continue metformin 500 mg po bid consider stopping amaryl or decreasing dosage check hga1c continue sliding scale insulin continue albuterol nebulizers continue bp monitoring d/w r.n. Nutritional Asmnt/Malnutr-PDOC - Dietary Evaluation Malnutrition Findings (Please click <Entered> for more info): Nutritional Asmnt/Malnutrition Start: 08/29/19 09: 11 Text: Status: Complete Freq: Protocol: Document 08/29/19 09:11 TERRIE (Rec: 08/29/19 09:29 TERRIE MANPREET- [id number]) Nutritional Asmnt/Malnutrition Patient General Information Nutritional Screening Moderate Risk Diagnosis Psychosis Pertinent Medical Hx/Surgical Hx Diabetes, Hypertension, asthma , arthritis, dementia, parkinsons, hypothyroidism, glaucoma, hyperlipidemia. Subjective Information Patient was admitted from [facility]. Portuguese speaking. Per nursing notes, patient very suspicious, paranoid that poison powder may be added to her food. Current Diet Order/ Nutrition Support 60 gm CCHO, VIVIEN Patient / S.O Not Indicated Pertinent Medications Pepcid, iron, lasix, glucagon, humalog, synthroid, Metformin , Klor-con Pertinent Labs POC glucose 269 56: HDL 44 Nutritional Hx/Data Height 1.45 m Height (Calculated Centimeters) 144.8 Current Weight (lbs) 67.585 kg Weight (Calculated Kilograms) 67.6 Weight (Calculated Grams) 89986.3 [place] Body Weight 92.5 % [place] Body Weight 161 Body Mass Index (BMI) 32.2 Recent Weight Change No Weight Status Obese GI Symptoms GI Symptoms Nausea Last BM 08/27 x 1 Difficult in: None Food Allergies No Cultural/Ethnic/Pentecostalism Belief none indicated Usual diet at home unknown Skin Integrity/Comment: Intact, James 21 Current %PO Good (75-100%) Estimated Nutritional Goals BEE in Kcals: Adj wt of IBW Calories/Kcals/Kg Adj BW 48.4 kg 25-30 kcal/kg Kcals Calculated ~1745-3427 kcal/day Protein: Adj wt of IBW Protein g/k-1.2 gm/kg Protein Calculated ~50-60 gm/day Fluid: ml ~2242-8418 ml/day (1 ml/kcal) Nutritional Problem 1. Problem Problem Altered nutrition related lab values related to Etiology uncontrolled hyperglycemia aeb Signs/Symptoms: POC glucose 269 Intervention/Recommendation Comments 1. Consider modifying diet to 45 gm CCHO to better meet nutrient needs. 2. MD to modify insulin regimen as needed for optimal glycemic control. Expected Outcomes/Goals Expected Outcomes/Goals Oral intake >75% of meals, weight stable or trend toward IBW, nutrition related lab values WNL. F/U LR 09/04-
--- NOTE | 2019-09-15 22:11 | Progress Notes ---
DATE: 09/15/2019 SUBJECTIVE: Case was discussed with staff of the patient, reviewed records and also discussed the care with her son yesterday and finally after many efforts to reach him, I discussed with him that the patient continues to be acting bizarre. She was not sleeping well few days ago. She has been acting bizarre, irritable, and hard to redirect. She also told me she is hard of hearing, they need to come and see if they could fit her for a hearing aid, which probably would help so much in her treatment as she is hard of hearing, does understand what is being said to her, not taking some of her medications that she cannot hear them very well. I discussed with the charge nurse, so how we can get her to be fitted for a hearing aid while in the hospital; however, she reported that she will try to talk to the director of the program so they can arrange for it. Hopefully, the patient so far continues to be unpredictable, impulsive, and acting bizarre. However, she is sleeping better, more compliant with the medication. I will be increasing her Depakote to 250 mg 3 times a day and she is also on Seroquel 100 mg twice a day. I will be increasing the dose to 125 mg twice a day to help improve her bizarre behavior. No side effects with the medication, no sedation, no nausea, no extrapyramidal symptoms. We will continue outpatient group therapy, milieu therapy, and adjust the medication as needed. JOB# [id number] MTDDavid
[2019-09-16] MEDS: Albuterol Nebulizer 2.5mg/3mL HHN SCH ×4 (00:14→18:28)
[2019-09-16] MEDS: Levothyroxine 0.05 Mg Tab PO SCH (06:32)
[2019-09-16] MEDS: INSULIN LISPRO SLIDING SCALE 100 UNITS/ML UNIT SUBQ SCH ×4 (06:56→20:29)
[2019-09-16] MEDS: Budesonide 0.5 Mg/2 mL Ud HHN SCH ×2 (09:34→18:28)
[2019-09-16] MEDS: Ferrous Sulfate 325 MG TAB PO SCH ×2 (09:44→16:41)
[2019-09-16] MEDS: Potassium Chloride 10 mEq ER Tab PO SCH (09:44)
[2019-09-16] MEDS: Aspirin 81mg Chewable Tab PO SCH (09:44)
--- NOTE | 2019-09-16 16:34 | Progress Notes ---
DATE: 09/16/2019 SUBJECTIVE: Case was discussed with staff of the patient, reviewed records. The patient has been compliant with some of her medication, therefore she does take the Seroquel all the time; however, she is not taking the Depakote. She says she usually chooses white pills and smaller pills and it happened to be that is what she did take. The patient continues however to be selective. She is hard of hearing. She is sleeping better. Appetite varies. No side effects with the medication, no sedation, no nausea, no extrapyramidal symptoms. I did increase her Seroquel to 125 mg twice a day and I will increase it further to 150 mg twice a day since she is not taking the Depakote. will continue outpatient group therapy, milieu therapy, adjust medication as needed. I discussed the care with her son and hopefully, I am not sure where we are as far as having her hearing aid in place. JOB# [id number] ANTONIO
--- NOTE | 2019-09-16 16:59 | Internal Medicine Prog Note ---
Internal Medicine Subjective - Subjective Service Date: 09/16/19 Patient seen and examined:: without staff Patient is:: awake, interactive, ambulating Per staff patient has:: no adverse event, no episodes of fall Internal Medicine Objective - Results Recent Labs: Laboratory Last Values POC Glucose 160 MG/DL (70 - 105) H 09/16/19 16:08 - Physical Exam Vitals and I&O: Vital Signs Temp 97.0 F 09/16/19 14:00 Pulse 75 09/16/19 14:00 Resp 20 09/16/19 14:00 BP 146/81 09/16/19 14:00 Pulse Ox 97 09/16/19 14:00 Intake & Output 09/15/19 09/16/19 09/16/19 18:59 06:59 18:59 Intake Total 800 120 Balance 800 120 Intake: Oral 800 120 Other: # Voids 3 3 # Bowel Movements 0 0 Active Medications: Current Medications Albuterol Sulfate (Albuterol 2.5mg/3ml Neb Ud) 2.5 mg HHN Q6HRT [facility] Stop: 10/26/19 17:59 Last Admin: 09/16/19 13:02 Dose: Not Given Allopurinol (Zyloprim) 100 mg PO DAILY [facility] Stop: 10/27/19 08:59 Last Admin: 09/16/19 09:44 Dose: Not Given Aspirin (Aspirin Chewable) 81 mg PO DAILY [facility] Stop: 10/27/19 08:59 Last Admin: 09/16/19 09:44 Dose: Not Given Brimonidine Tartrate (Alphagan 0.1% Ophth Soln) 1 drop EACH EYE HS [facility] Stop: 10/26/19 20:59 Last Admin: 09/15/19 20:23 Dose: Not Given Budesonide (Pulmicort) 0.5 mg HHN BIDRT [facility] Stop: 10/26/19 16:59 Carvedilol (Coreg) 6.25 mg PO BID [facility] Stop: 10/26/19 16:59 Last Admin: 09/16/19 09:33 Dose: 6.25 mg Dextrose (Glutose 40%) 18.75 gm PO PRN PRN PRN Reason: BS Below 70 if tolerate po Stop: 10/27/19 11:28 Divalproex Sodium (Depakote Dr) 250 mg PO Q8HR [facility]; Protocol Stop: 11/14/19 12:59 Last Admin: 09/16/19 13:02 Dose: Not Given Donepezil HCl (Aricept) 5 mg PO HS [facility] Stop: 10/30/19 20:59 Last Admin: 09/15/19 20:34 Dose: 5 mg Famotidine (Pepcid) 20 mg PO QDAC [facility] Stop: 10/31/19 07:29 Last Admin: 09/16/19 06:32 Dose: 20 mg Ferrous Sulfate (Iron) 325 mg PO BID [facility] Stop: 10/26/19 16:59 Last Admin: 09/16/19 16:41 Dose: Not Given Fluoxetine HCl (Prozac) 20 mg PO DAILY [facility]; Protocol Stop: 10/27/19 08:59 Last Admin: 09/16/19 09:44 Dose: Not Given Furosemide (Lasix) 20 mg PO DAILY [facility] Stop: 10/27/19 08:59 Last Admin: 09/16/19 09:33 Dose: 20 mg Glimepiride (Amaryl) 2 mg PO BID [facility] Stop: 10/26/19 16:59 Last Admin: 09/16/19 09:44 Dose: Not Given Glucagon (Glucagen) 1 mg IM PRN PRN PRN Reason: BS Below 70 if not tolerate po Stop: 10/27/19 11:28 Insulin Human Lispro (Humalog Insulin Sliding Scale) 0 units SUBQ ACHS [facility]; Protocol Stop: 10/27/19 11:29 Last Admin: 09/16/19 16:12 Dose: 3 units Latanoprost (Xalatan 0.005% Ophth Soln) 1 drop EACH EYE [facility] Stop: 10/26/19 20:59 Last Admin: 09/15/19 20:23 Dose: Not Given Levothyroxine Sodium (Synthroid) 0.05 mg PO QDAC [facility] Stop: 10/27/19 07:29 Last Admin: 09/16/19 06:32 Dose: 0.05 mg Lorazepam (Ativan) 0.5 mg PO Q4HR PRN; Protocol PRN Reason: Anxiety Stop: 10/26/19 01:34 Last Admin: 09/16/19 14:32 Dose: 0.5 mg Memantine (Namenda) 5 mg PO DAILY [facility] Stop: 11/14/19 08:59 Last Admin: 09/16/19 09:44 Dose: Not Given Metformin HCl (Glucophage) 500 mg PO BID [facility] Stop: 11/09/19 16:59 Last Admin: 09/16/19 16:41 Dose: Not Given Nitroglycerin (Nitrostat) 0.4 mg SL Q5MIN PRN PRN Reason: Chest Pain Stop: 10/26/19 13:25 Potassium Chloride (Klor-Con) 10 meq PO DAILY [facility] Stop: 10/27/19 08:59 Last Admin: 09/16/19 09:44 Dose: Not Given Quetiapine Fumarate 100 mg/ (Quetiapine Fumarate 50 mg) 150 mg PO BID [facility] Stop: 11/15/19 09:59 Last Admin: 09/16/19 11:29 Dose: Not Given Simvastatin (Zocor) 20 mg PO HS [facility]; Protocol Stop: 10/31/19 20:59 Last Admin: 09/15/19 20:34 Dose: Not Given Valsartan (Diovan) 160 mg PO DAILY [facility] Stop: 10/27/19 08:59 Last Admin: 09/16/19 09:44 Dose: Not Given Zolpidem Tartrate (Ambien) 5 mg PO HS PRN PRN Reason: Insomnia Stop: 10/26/19 01:35 Last Admin: 09/10/19 20:08 Dose: 5 mg General: weak HEENT: NC/AT Neck: Supple Lungs: CTAB Cardiovascular: RRR, Normal S1, Normal S2 Abdomen: soft, non-tender Extremities: clear Neurological: no change Internal Medicine Assmt/Plan - Assessment Assessment: 1. COPD 2. DM, poorly controlled 3. Psychosis - Plan Plan: continue metformin 500 mg po bid consider stopping amaryl or decreasing dosage check hga1c continue sliding scale insulin continue albuterol nebulizers continue bp monitoring d/w r.n. Nutritional Asmnt/Malnutr-PDOC - Dietary Evaluation Malnutrition Findings (Please click <Entered> for more info): Nutritional Asmnt/Malnutrition Start: 08/29/19 09: 11 Text: Status: Complete Freq: Protocol: Document 08/29/19 09:11 TERRIE (Rec: 08/29/19 09:29 TERRIE MANPREET- [id number]) Nutritional Asmnt/Malnutrition Patient General Information Nutritional Screening Moderate Risk Diagnosis Psychosis Pertinent Medical Hx/Surgical Hx Diabetes, Hypertension, asthma , arthritis, dementia, parkinsons, hypothyroidism, glaucoma, hyperlipidemia. Subjective Information Patient was admitted from [facility]. Kinyarw[place] speaking. Per nursing notes, patient very suspicious, paranoid that poison powder may be added to her food. Current Diet Order/ Nutrition Support 60 gm CCHO, VIVIEN Patient / S.O Not Indicated Pertinent Medications Pepcid, iron, lasix, glucagon, humalog, synthroid, Metformin , Klor-con Pertinent Labs POC glucose 269 5/6: HDL 44 Nutritional Hx/Data Height 1.45 m Height (Calculated Centimeters) 144.8 Current Weight (lbs) 67.585 kg Weight (Calculated Kilograms) 67.6 Weight (Calculated Grams) 86289.3 [place] Body Weight 92.5 % [place] Body Weight 161 Body Mass Index (BMI) 32.2 Recent Weight Change No Weight Status Obese GI Symptoms GI Symptoms Nausea Last BM 08/27 x 1 Difficult in: None Food Allergies No Cultural/Ethnic/Protestant Belief none indicated Usual diet at home unknown Skin Integrity/Comment: Intact, James 21 Current %PO Good (75-100%) Estimated Nutritional Goals BEE in Kcals: Adj wt of IBW Calories/Kcals/Kg Adj BW 48.4 kg 25-30 kcal/kg Kcals Calculated ~2109-8504 kcal/day Protein: Adj wt of IBW Protein g/k-1.2 gm/kg Protein Calculated ~50-60 gm/day Fluid: ml ~3303-6480 ml/day (1 ml/kcal) Nutritional Problem 1. Problem Problem Altered nutrition related lab values related to Etiology uncontrolled hyperglycemia aeb Signs/Symptoms: POC glucose 269 Intervention/Recommendation Comments 1. Consider modifying diet to 45 gm CCHO to better meet nutrient needs. 2. MD to modify insulin regimen as needed for optimal glycemic control. Expected Outcomes/Goals Expected Outcomes/Goals Oral intake >75% of meals, weight stable or trend toward IBW, nutrition related lab values WNL. F/U LR 09/04-
[2019-09-17] MEDS: Albuterol Nebulizer 2.5mg/3mL HHN SCH ×4 (00:36→18:01)
[2019-09-17] MEDS: Budesonide 0.5 Mg/2 mL Ud HHN SCH ×2 (06:40→18:01)
[2019-09-17] MEDS: Levothyroxine 0.05 Mg Tab PO SCH (06:41)
[2019-09-17] MEDS: INSULIN LISPRO SLIDING SCALE 100 UNITS/ML UNIT SUBQ SCH ×4 (06:46→20:21)
[2019-09-17] MEDS: Aspirin 81mg Chewable Tab PO SCH (09:31)
[2019-09-17] MEDS: Ferrous Sulfate 325 MG TAB PO SCH ×2 (09:31→16:40)
[2019-09-17] MEDS: Potassium Chloride 10 mEq ER Tab PO SCH (09:32)
--- NOTE | 2019-09-17 14:56 | Internal Medicine Prog Note ---
Internal Medicine Subjective - Subjective Service Date: 09/17/19 Patient seen and examined:: without staff Patient is:: awake, interactive, ambulating Per staff patient has:: no adverse event, no episodes of fall Internal Medicine Objective - Results Recent Labs: Laboratory Last Values POC Glucose 220 MG/DL (70 - 105) H 09/17/19 10:56 - Physical Exam Vitals and I&O: Vital Signs Temp 98.0 F 09/17/19 05:39 Pulse 86 09/17/19 09:30 Resp 18 09/17/19 07:25 BP 142/63 09/17/19 09:31 Pulse Ox 96 09/17/19 05:39 Intake & Output 09/16/19 09/17/19 09/17/19 18:59 06:59 18:59 Intake Total 700 240 Balance 700 240 Intake: Oral 700 240 Other: # Voids 2 2 # Bowel Movements 0 0 Active Medications: Current Medications Albuterol Sulfate (Albuterol 2.5mg/3ml Neb Ud) 2.5 mg HHN Q6HRT [facility] Stop: 10/26/19 17:59 Last Admin: 09/17/19 13:13 Dose: Not Given Allopurinol (Zyloprim) 100 mg PO DAILY [facility] Stop: 10/27/19 08:59 Last Admin: 09/17/19 09:31 Dose: Not Given Aspirin (Aspirin Chewable) 81 mg PO DAILY [facility] Stop: 10/27/19 08:59 Last Admin: 09/17/19 09:31 Dose: 81 mg Brimonidine Tartrate (Alphagan 0.1% Ophth Soln) 1 drop EACH EYE HS [facility] Stop: 10/26/19 20:59 Last Admin: 09/16/19 20:46 Dose: Not Given Budesonide (Pulmicort) 0.5 mg HHN BIDRT [facility] Stop: 10/26/19 16:59 Last Admin: 09/17/19 06:40 Dose: Not Given Carvedilol (Coreg) 6.25 mg PO BID [facility] Stop: 10/26/19 16:59 Last Admin: 09/17/19 09:30 Dose: 6.25 mg Dextrose (Glutose 40%) 18.75 gm PO PRN PRN PRN Reason: BS Below 70 if tolerate po Stop: 10/27/19 11:28 Divalproex Sodium (Depakote Dr) 250 mg PO Q8HR [facility]; Protocol Stop: 11/14/19 12:59 Last Admin: 09/17/19 13:13 Dose: Not Given Donepezil HCl (Aricept) 5 mg PO HS [facility] Stop: 10/30/19 20:59 Last Admin: 09/16/19 20:24 Dose: 5 mg Famotidine (Pepcid) 20 mg PO QDAC [facility] Stop: 10/31/19 07:29 Last Admin: 09/17/19 06:41 Dose: 20 mg Ferrous Sulfate (Iron) 325 mg PO BID [facility] Stop: 10/26/19 16:59 Last Admin: 09/17/19 09:31 Dose: Not Given Fluoxetine HCl (Prozac) 20 mg PO DAILY [facility]; Protocol Stop: 10/27/19 08:59 Last Admin: 09/17/19 09:31 Dose: 20 mg Furosemide (Lasix) 20 mg PO DAILY [facility] Stop: 10/27/19 08:59 Last Admin: 09/17/19 09:31 Dose: 20 mg Glimepiride (Amaryl) 2 mg PO BID [facility] Stop: 10/26/19 16:59 Last Admin: 09/17/19 09:31 Dose: 2 mg Glucagon (Glucagen) 1 mg IM PRN PRN PRN Reason: BS Below 70 if not tolerate po Stop: 10/27/19 11:28 Insulin Human Lispro (Humalog Insulin Sliding Scale) 0 units SUBQ ACHS [facility]; Protocol Stop: 10/27/19 11:29 Last Admin: 09/17/19 11:26 Dose: 5 units Latanoprost (Xalatan 0.005% Ophth Soln) 1 drop EACH EYE [facility] Stop: 10/26/19 20:59 Last Admin: 09/16/19 20:46 Dose: Not Given Levothyroxine Sodium (Synthroid) 0.05 mg PO QDAC [facility] Stop: 10/27/19 07:29 Last Admin: 09/17/19 06:41 Dose: 0.05 mg Lorazepam (Ativan) 0.5 mg PO Q4HR PRN; Protocol PRN Reason: Anxiety Stop: 10/26/19 01:34 Last Admin: 09/16/19 20:24 Dose: 0.5 mg Memantine (Namenda) 5 mg PO DAILY [facility] Stop: 11/14/19 08:59 Last Admin: 09/17/19 09:31 Dose: 5 mg Metformin HCl (Glucophage) 500 mg PO BID [facility] Stop: 11/09/19 16:59 Last Admin: 09/17/19 09:30 Dose: 500 mg Nitroglycerin (Nitrostat) 0.4 mg SL Q5MIN PRN PRN Reason: Chest Pain Stop: 10/26/19 13:25 Potassium Chloride (Klor-Con) 10 meq PO DAILY [facility] Stop: 10/27/19 08:59 Last Admin: 09/17/19 09:32 Dose: Not Given Quetiapine Fumarate 100 mg/ (Quetiapine Fumarate 50 mg) 150 mg PO BID [facility] Stop: 11/15/19 09:59 Last Admin: 09/17/19 09:30 Dose: 150 mg Simvastatin (Zocor) 20 mg PO HS [facility]; Protocol Stop: 10/31/19 20:59 Last Admin: 09/16/19 20:24 Dose: 20 mg Valsartan (Diovan) 160 mg PO DAILY [facility] Stop: 10/27/19 08:59 Last Admin: 09/17/19 09:32 Dose: Not Given Zolpidem Tartrate (Ambien) 5 mg PO HS PRN PRN Reason: Insomnia Stop: 10/26/19 01:35 Last Admin: 09/16/19 22:19 Dose: 5 mg General: weak HEENT: NC/AT Neck: Supple Lungs: CTAB Cardiovascular: RRR, Normal S1, Normal S2 Abdomen: soft, non-tender Extremities: clear Neurological: no change Internal Medicine Assmt/Plan - Assessment Assessment: 1. COPD 2. DM, poorly controlled 3. Psychosis 4. HTN - Plan Plan: continue metformin 500 mg po bid and amaryl 2 mg po bid check hga1c continue sliding scale insulin continue albuterol nebulizers continue bp monitoring d/w r.n. Nutritional Asmnt/Malnutr-PDOC - Dietary Evaluation Malnutrition Findings (Please click <Entered> for more info): Nutritional Asmnt/Malnutrition Start: 08/29/19 09: 11 Text: Status: Complete Freq: Protocol: Document 08/29/19 09:11 TERRIE (Rec: 08/29/19 09:29 TERRIE CASE- [id number]) Nutritional Asmnt/Malnutrition Patient General Information Nutritional Screening Moderate Risk Diagnosis Psychosis Pertinent Medical Hx/Surgical Hx Diabetes, Hypertension, asthma , arthritis, dementia, parkinsons, hypothyroidism, glaucoma, hyperlipidemia. Subjective Information Patient was admitted from [facility]. Welsh speaking. Per nursing notes, patient very suspicious, paranoid that poison powder may be added to her food. Current Diet Order/ Nutrition Support 60 gm CCHO, VIVIEN Patient / S.O Not Indicated Pertinent Medications Pepcid, iron, lasix, glucagon, humalog, synthroid, Metformin , Klor-con Pertinent Labs POC glucose 269 08/25: HDL 44 Nutritional Hx/Data Height 1.45 m Height (Calculated Centimeters) 144.8 Current Weight (lbs) 67.585 kg Weight (Calculated Kilograms) 67.6 Weight (Calculated Grams) 88798.3 [place] Body Weight 92.5 % [place] Body Weight 161 Body Mass Index (BMI) 32.2 Recent Weight Change No Weight Status Obese GI Symptoms GI Symptoms Nausea Last BM 08/27 x 1 Difficult in: None Food Allergies No Cultural/Ethnic/Temple Belief none indicated Usual diet at home unknown Skin Integrity/Comment: Intact, James 21 Current %PO Good (75-100%) Estimated Nutritional Goals BEE in Kcals: Adj wt of IBW Calories/Kcals/Kg Adj BW 48.4 kg 25-30 kcal/kg Kcals Calculated ~0392-3752 kcal/day Protein: Adj wt of IBW Protein g/k-1.2 gm/kg Protein Calculated ~50-60 gm/day Fluid: ml ~1828-7424 ml/day (1 ml/kcal) Nutritional Problem 1. Problem Problem Altered nutrition related lab values related to Etiology uncontrolled hyperglycemia aeb Signs/Symptoms: POC glucose 269 Intervention/Recommendation Comments 1. Consider modifying diet to 45 gm CCHO to better meet nutrient needs. 2. MD to modify insulin regimen as needed for optimal glycemic control. Expected Outcomes/Goals Expected Outcomes/Goals Oral intake >75% of meals, weight stable or trend toward IBW, nutrition related lab values WNL. F/U LR 09/04-
--- NOTE | 2019-09-17 23:40 | Progress Notes ---
DATE: 09/17/2019 SUBJECTIVE: Case was discussed with staff of the patient, reviewed records. The patient is hard of hearing. She has been hiding her breakfast under the table. She has been acting bizarre. She is hard of hearing, unable to participate in meaningful conversation. She has been confused, unable to make safe plan for self-care. I increased her Seroquel to 150 mg twice a day yesterday. I will give more time for further adjustments. No side effects with the medication, no sedation, no nausea, no extrapyramidal symptoms. We will continue outpatient group therapy, milieu therapy, and adjust medication as needed. JOB# [id number]
[2019-09-18] MEDS: Albuterol Nebulizer 2.5mg/3mL HHN SCH ×4 (01:00→19:01)
[2019-09-18] MEDS: Budesonide 0.5 Mg/2 mL Ud HHN SCH ×2 (06:51→19:01)
[2019-09-18] MEDS: Levothyroxine 0.05 Mg Tab PO SCH (06:52)
[2019-09-18] MEDS: INSULIN LISPRO SLIDING SCALE 100 UNITS/ML UNIT SUBQ SCH ×4 (06:52→21:19)
[2019-09-18] MEDS: Potassium Chloride 10 mEq ER Tab PO SCH ×2 (09:31→09:35)
[2019-09-18] MEDS: Ferrous Sulfate 325 MG TAB PO SCH ×3 (09:31→17:42)
[2019-09-18] MEDS: Aspirin 81mg Chewable Tab PO SCH (09:32)
--- NOTE | 2019-09-18 15:36 | Internal Medicine Prog Note ---
Internal Medicine Subjective - Subjective Service Date: 09/18/19 Patient seen and examined:: without staff Patient is:: awake, interactive, ambulating Per staff patient has:: no adverse event, no episodes of fall Internal Medicine Objective - Results Recent Labs: Laboratory Last Values POC Glucose 121 MG/DL (70 - 105) H 09/18/19 11:57 - Physical Exam Vitals and I&O: Vital Signs Temp 97.2 F 09/18/19 14:00 Pulse 85 09/18/19 09:31 Resp 19 09/18/19 06:29 BP 155/65 09/18/19 09:31 Pulse Ox 98 09/18/19 06:29 Intake & Output 09/17/19 09/18/19 09/18/19 18:59 06:59 18:59 Intake Total 1200 120 Balance 1200 120 Intake: Oral 1200 120 Other: # Voids 1 # Bowel Movements 1 0 Stool Characteristics Soft Formed Brown Active Medications: Current Medications Albuterol Sulfate (Albuterol 2.5mg/3ml Neb Ud) 2.5 mg HHN Q6HRT [facility] Stop: 10/26/19 17:59 Last Admin: 09/18/19 13:55 Dose: Not Given Allopurinol (Zyloprim) 100 mg PO DAILY [facility] Stop: 10/27/19 08:59 Last Admin: 09/18/19 09:31 Dose: 100 mg Aspirin (Aspirin Chewable) 81 mg PO DAILY [facility] Stop: 10/27/19 08:59 Last Admin: 09/18/19 09:32 Dose: 81 mg Brimonidine Tartrate (Alphagan 0.1% Ophth Soln) 1 drop EACH EYE HS [facility] Stop: 10/26/19 20:59 Last Admin: 09/17/19 20:21 Dose: Not Given Budesonide (Pulmicort) 0.5 mg HHN BIDRT [facility] Stop: 10/26/19 16:59 Last Admin: 09/18/19 06:51 Dose: Not Given Carvedilol (Coreg) 6.25 mg PO BID [facility] Stop: 10/26/19 16:59 Last Admin: 09/18/19 09:31 Dose: 6.25 mg Dextrose (Glutose 40%) 18.75 gm PO PRN PRN PRN Reason: BS Below 70 if tolerate po Stop: 10/27/19 11:28 Divalproex Sodium (Depakote Dr) 250 mg PO Q8HR [facility]; Protocol Stop: 11/14/19 12:59 Last Admin: 09/18/19 13:54 Dose: 250 mg Donepezil HCl (Aricept) 5 mg PO HS [facility] Stop: 10/30/19 20:59 Last Admin: 09/17/19 20:21 Dose: Not Given Famotidine (Pepcid) 20 mg PO QDAC [facility] Stop: 10/31/19 07:29 Last Admin: 09/18/19 06:51 Dose: Not Given Ferrous Sulfate (Iron) 325 mg PO BID [facility] Stop: 10/26/19 16:59 Last Admin: 09/18/19 09:31 Dose: 325 mg Fluoxetine HCl (Prozac) 20 mg PO DAILY [facility]; Protocol Stop: 10/27/19 08:59 Last Admin: 09/18/19 09:32 Dose: 20 mg Furosemide (Lasix) 20 mg PO DAILY [facility] Stop: 10/27/19 08:59 Last Admin: 09/18/19 09:31 Dose: 20 mg Glimepiride (Amaryl) 2 mg PO BID [facility] Stop: 10/26/19 16:59 Last Admin: 09/18/19 09:31 Dose: 2 mg Glucagon (Glucagen) 1 mg IM PRN PRN PRN Reason: BS Below 70 if not tolerate po Stop: 10/27/19 11:28 Insulin Human Lispro (Humalog Insulin Sliding Scale) 0 units SUBQ ACHS [facility]; Protocol Stop: 10/27/19 11:29 Last Admin: 09/18/19 11:33 Dose: Not Given Latanoprost (Xalatan 0.005% Oph Soln) 1 drop EACH EYE [facility] Stop: 10/26/19 20:59 Last Admin: 09/17/19 20:22 Dose: Not Given Levothyroxine Sodium (Synthroid) 0.05 mg PO QDAC [facility] Stop: 10/27/19 07:29 Last Admin: 09/18/19 06:52 Dose: Not Given Lorazepam (Ativan) 0.5 mg PO Q4HR PRN; Protocol PRN Reason: Anxiety Stop: 10/26/19 01:34 Last Admin: 09/18/19 09:32 Dose: 0.5 mg Memantine (Namenda) 5 mg PO BID [facility] Stop: 11/17/19 16:59 Metformin HCl (Glucophage) 500 mg PO BID [facility] Stop: 11/09/19 16:59 Last Admin: 09/18/19 09:31 Dose: 500 mg Nitroglycerin (Nitrostat) 0.4 mg SL Q5MIN PRN PRN Reason: Chest Pain Stop: 10/26/19 13:25 Potassium Chloride (Klor-Con) 10 meq PO DAILY [facility] Stop: 10/27/19 08:59 Last Admin: 09/18/19 09:31 Dose: 10 meq Quetiapine Fumarate 100 mg/Quetiapine Fumarate 50 mg/Quetiapine Fumarate 25 mg 175 mg PO BID [facility] Stop: 11/17/19 16:59 Simvastatin (Zocor) 20 mg PO HS [facility]; Protocol Stop: 10/31/19 20:59 Last Admin: 09/17/19 20:22 Dose: Not Given Valsartan (Diovan) 160 mg PO DAILY [facility] Stop: 10/27/19 08:59 Last Admin: 09/18/19 09:30 Dose: 160 mg Zolpidem Tartrate (Ambien) 5 mg PO HS PRN PRN Reason: Insomnia Stop: 10/26/19 01:35 Last Admin: 09/17/19 20:22 Dose: 5 mg General: weak HEENT: NC/AT Neck: Supple Lungs: CTAB Cardiovascular: RRR, Normal S1, Normal S2 Abdomen: soft, non-tender Extremities: clear Neurological: no change Internal Medicine Assmt/Plan - Assessment Assessment: 1. COPD 2. DM, poorly controlled 3. Psychosis 4. HTN - Plan Plan: continue metformin 500 mg po bid and amaryl 2 mg po bid check hga1c continue sliding scale insulin continue albuterol nebulizers continue bp monitoring d/w r.n. Nutritional Asmnt/Malnutr-PDOC - Dietary Evaluation Malnutrition Findings (Please click <Entered> for more info): Nutritional Asmnt/Malnutrition Start: 08/29/19 09: 11 Text: Status: Complete Freq: Protocol: Document 08/29/19 09:11 TERRIE (Rec: 08/29/19 09:29 TERRIE BRAGAN- [id number]) Nutritional Asmnt/Malnutrition Patient General Information Nutritional Screening Moderate Risk Diagnosis Psychosis Pertinent Medical Hx/Surgical Hx Diabetes, Hypertension, asthma , arthritis, dementia, parkinsons, hypothyroidism, glaucoma, hyperlipidemia. Subjective Information Patient was admitted from [facility]. Swedish speaking. Per nursing notes, patient very suspicious, paranoid that poison powder may be added to her food. Current Diet Order/ Nutrition Support 60 gm CCHO, VIVIEN Patient / S.O Not Indicated Pertinent Medications Pepcid, iron, lasix, glucagon, humalog, synthroid, Metformin , Klor-con Pertinent Labs POC glucose 269 56: HDL 44 Nutritional Hx/Data Height 1.45 m Height (Calculated Centimeters) 144.8 Current Weight (lbs) 67.585 kg Weight (Calculated Kilograms) 67.6 Weight (Calculated Grams) 38237.3 [place] Body Weight 92.5 % [place] Body Weight 161 Body Mass Index (BMI) 32.2 Recent Weight Change No Weight Status Obese GI Symptoms GI Symptoms Nausea Last BM 08/27 x 1 Difficult in: None Food Allergies No Cultural/Ethnic/Mosque Belief none indicated Usual diet at home unknown Skin Integrity/Comment: Intact, James 21 Current %PO Good (75-100%) Estimated Nutritional Goals BEE in Kcals: Adj wt of IBW Calories/Kcals/Kg Adj BW 48.4 kg 25-30 kcal/kg Kcals Calculated ~3929-7559 kcal/day Protein: Adj wt of IBW Protein g/k-1.2 gm/kg Protein Calculated ~50-60 gm/day Fluid: ml ~6976-5153 ml/day (1 ml/kcal) Nutritional Problem 1. Problem Problem Altered nutrition related lab values related to Etiology uncontrolled hyperglycemia aeb Signs/Symptoms: POC glucose 269 Intervention/Recommendation Comments 1. Consider modifying diet to 45 gm CCHO to better meet nutrient needs. 2. MD to modify insulin regimen as needed for optimal glycemic control. Expected Outcomes/Goals Expected Outcomes/Goals Oral intake >75% of meals, weight stable or trend toward IBW, nutrition related lab values WNL. F/U LR 09/04-
--- NOTE | 2019-09-18 20:36 | Progress Notes ---
DATE: 09/18/2019 SUBJECTIVE: Case was discussed with staff of the patient, reviewed records. The patient is reported to be acting a little bit better and less bizarre, easier to redirect. She has been selective with her medications, but she has been taking the Depakote and Seroquel more often. She is sleeping better. She is eating better, able to feed herself. So, we are seeing some progress. No side effects with the medication, no sedation, no nausea, no extrapyramidal symptoms. I will be increasing her Seroquel a bit further to 175 mg twice a day to help improve her psychotic, bizarre behavior and also I will be increasing her dose of Namenda to help improve her cognition to 1 tablet twice a day. No side effects with the medication, no sedation, no nausea, no extrapyramidal symptoms. I discussed the care with her family. Hopefully soon, she will be ready to go. Apparently nobody came to evaluate her hearing or fitted for hearing aids. We will continue outpatient group therapy, milieu therapy, adjust medication as needed. JOB# [id number]
[2019-09-19] MEDS: Albuterol Nebulizer 2.5mg/3mL HHN SCH ×4 (01:00→19:30)
[2019-09-19] MEDS: Budesonide 0.5 Mg/2 mL Ud HHN SCH ×2 (06:45→19:30)
[2019-09-19] MEDS: INSULIN LISPRO SLIDING SCALE 100 UNITS/ML UNIT SUBQ SCH ×4 (06:47→21:00)
[2019-09-19] MEDS: Levothyroxine 0.05 Mg Tab PO SCH (06:48)
[2019-09-19] MEDS: Potassium Chloride 10 mEq ER Tab PO SCH ×2 (08:49→08:50)
[2019-09-19] MEDS: Aspirin 81mg Chewable Tab PO SCH ×2 (08:50)
[2019-09-19] MEDS: Ferrous Sulfate 325 MG TAB PO SCH ×3 (08:50→17:55)
--- NOTE | 2019-09-19 13:55 | Internal Medicine Prog Note ---
Internal Medicine Subjective - Subjective Service Date: 09/19/19 Patient seen and examined:: without staff Patient is:: awake, interactive, ambulating Per staff patient has:: no adverse event, no episodes of fall Internal Medicine Objective - Results Recent Labs: Laboratory Last Values POC Glucose 119 MG/DL (70 - 105) H 09/19/19 05:55 - Physical Exam Vitals and I&O: Vital Signs Temp 97.3 F 09/19/19 06:10 Pulse 70 09/19/19 08:49 Resp 16 09/19/19 08:00 BP 154/69 09/19/19 08:49 Pulse Ox 97 09/19/19 06:10 Intake & Output 09/18/19 09/19/19 09/19/19 18:59 06:59 18:59 Intake Total 960 240 Balance 960 240 Intake: Oral 960 240 Other: # Voids 4 2 # Bowel Movements 1 Stool Characteristics Soft Soft Soft Formed Formed Formed Brown Brown Brown Active Medications: Current Medications Albuterol Sulfate (Albuterol 2.5mg/3ml Neb Ud) 2.5 mg HHN Q6HRT [facility] Stop: 10/26/19 17:59 Last Admin: 09/19/19 13:31 Dose: Not Given Allopurinol (Zyloprim) 100 mg PO DAILY [facility] Stop: 10/27/19 08:59 Last Admin: 09/19/19 08:50 Dose: 100 mg Aspirin (Aspirin Chewable) 81 mg PO DAILY [facility] Stop: 10/27/19 08:59 Last Admin: 09/19/19 08:50 Dose: 81 mg [facility] Stop: 10/26/19 20:59 Last Admin: 09/18/19 21:19 Dose: Not Given Budesonide (Pulmicort) 0.5 mg HHN BIDRT [facility] Stop: 10/26/19 16:59 Last Admin: 09/19/19 06:45 Dose: Not Given Carvedilol (Coreg) 6.25 mg PO BID [facility] Stop: 10/26/19 16:59 Last Admin: 09/19/19 08:49 Dose: 6.25 mg Dextrose (Glutose 40%) 18.75 gm PO PRN PRN PRN Reason: BS Below 70 if tolerate po Stop: 10/27/19 11:28 Divalproex Sodium (Depakote Dr) 250 mg PO Q8HR [facility]; Protocol Stop: 11/14/19 12:59 Last Admin: 09/19/19 13:31 Dose: 250 mg Donepezil HCl (Aricept) 5 mg PO HS [facility] Stop: 10/30/19 20:59 Last Admin: 09/18/19 21:02 Dose: 5 mg Famotidine (Pepcid) 20 mg PO QDAC [facility] Stop: 10/31/19 07:29 Last Admin: 09/19/19 06:46 Dose: Not Given Ferrous Sulfate (Iron) 325 mg PO BID [facility] Stop: 10/26/19 16:59 Last Admin: 09/19/19 08:50 Dose: 325 mg Fluoxetine HCl (Prozac) 20 mg PO DAILY [facility]; Protocol Stop: 10/27/19 08:59 Last Admin: 09/19/19 08:49 Dose: 20 mg Furosemide (Lasix) 20 mg PO DAILY [facility] Stop: 10/27/19 08:59 Last Admin: 09/19/19 08:49 Dose: 20 mg Glimepiride (Amaryl) 2 mg PO BID [facility] Stop: 10/26/19 16:59 Last Admin: 09/19/19 08:51 Dose: 2 mg Glucagon (Glucagen) 1 mg IM PRN PRN PRN Reason: BS Below 70 if not tolerate po Stop: 10/27/19 11:28 Insulin Human Lispro (Humalog Insulin Sliding Scale) 0 units SUBQ ACHS [facility]; Protocol Stop: 10/27/19 11:29 Last Admin: 09/19/19 12:01 Dose: Not Given Latanoprost (Xalatan 0.005% Ophth Soln) 1 drop EACH EYE [facility] Stop: 10/26/19 20:59 Last Admin: 09/18/19 21:03 Dose: Not Given Levothyroxine Sodium (Synthroid) 0.05 mg PO QDAC [facility] Stop: 10/27/19 07:29 Last Admin: 09/19/19 06:48 Dose: Not Given Lorazepam (Ativan) 0.5 mg PO Q4HR PRN; Protocol PRN Reason: Anxiety Stop: 10/26/19 01:34 Last Admin: 09/19/19 08:50 Dose: 0.5 mg Memantine (Namenda) 5 mg PO BID [facility] Stop: 11/17/19 16:59 Last Admin: 09/19/19 08:50 Dose: 5 mg Metformin HCl (Glucophage) 500 mg PO BID [facility] Stop: 11/09/19 16:59 Last Admin: 09/19/19 08:50 Dose: 500 mg Nitroglycerin (Nitrostat) 0.4 mg SL Q5MIN PRN PRN Reason: Chest Pain Stop: 10/26/19 13:25 Potassium Chloride (Klor-Con) 10 meq PO DAILY [facility] Stop: 10/27/19 08:59 Last Admin: 09/19/19 08:49 Dose: 10 meq Quetiapine Fumarate 100 mg/Quetiapine Fumarate 50 mg/Quetiapine Fumarate 25 mg 175 mg PO BID [facility] Stop: 11/17/19 16:59 Last Admin: 09/19/19 08:50 Dose: 175 mg Simvastatin (Zocor) 20 mg PO HS [facility]; Protocol Stop: 10/31/19 20:59 Last Admin: 09/18/19 21:02 Dose: 20 mg Valsartan (Diovan) 160 mg PO DAILY [facility] Stop: 10/27/19 08:59 Last Admin: 09/19/19 08:48 Dose: 160 mg Zolpidem Tartrate (Ambien) 5 mg PO HS PRN PRN Reason: Insomnia Stop: 10/26/19 01:35 Last Admin: 09/18/19 21:02 Dose: 5 mg General: weak HEENT: NC/AT Neck: Supple Lungs: CTAB Cardiovascular: RRR, Normal S1, Normal S2 Abdomen: soft, non-tender Extremities: clear Neurological: no change Internal Medicine Assmt/Plan - Assessment Assessment: 1. COPD 2. DM, poorly controlled 3. Psychosis 4. HTN - Plan Plan: continue metformin 500 mg po bid and amaryl 2 mg po bid check [id number] continue sliding scale insulin continue albuterol nebulizers continue bp monitoring d/w r.n. Nutritional Asmnt/Malnutr-PDOC - Dietary Evaluation Malnutrition Findings (Please click <Entered> for more info): Nutritional Asmnt/Malnutrition Start: 08/29/19 09: 11 Text: Status: Complete Freq: Protocol: Document 08/29/19 09:11 TERRIE (Rec: 08/29/19 09:29 TERRIE CASE- [id number]) Nutritional Asmnt/Malnutrition Patient General Information Nutritional Screening Moderate Risk Diagnosis Psychosis Pertinent Medical Hx/Surgical Hx Diabetes, Hypertension, asthma , arthritis, dementia, parkinsons, hypothyroidism, glaucoma, hyperlipidemia. Subjective Information Patient was admitted from [facility]. Citizen Of [place] speaking. Per nursing notes, patient very suspicious, paranoid that poison powder may be added to her food. Current Diet Order/ Nutrition Support 60 gm CCHO, VIVIEN Patient / S.O Not Indicated Pertinent Medications Pepcid, iron, lasix, glucagon, humalog, synthroid, Metformin , Klor-con Pertinent Labs POC glucose 269 5: HDL 44 Nutritional Hx/Data Height 1.45 m Height (Calculated Centimeters) 144.8 Current Weight (lbs) 67.585 kg Weight (Calculated Kilograms) 67.6 Weight (Calculated Grams) 41426.3 [place] Body Weight 92.5 % [place] Body Weight 161 Body Mass Index (BMI) 32.2 Recent Weight Change No Weight Status Obese GI Symptoms GI Symptoms Nausea Last BM 08/27 x 1 Difficult in: None Food Allergies No Cultural/Ethnic/Mu-Ism Belief none indicated Usual diet at home unknown Skin Integrity/Comment: Intact, James 21 Current %PO Good (75-100%) Estimated Nutritional Goals BEE in Kcals: Adj wt of IBW Calories/Kcals/Kg Adj BW 48.4 kg 25-30 kcal/kg Kcals Calculated ~1406-8084 kcal/day Protein: Adj wt of IBW Protein g/k-1.2 gm/kg Protein Calculated ~50-60 gm/day Fluid: ml ~0425-4502 ml/day (1 ml/kcal) Nutritional Problem 1. Problem Problem Altered nutrition related lab values related to Etiology uncontrolled hyperglycemia aeb Signs/Symptoms: POC glucose 269 Intervention/Recommendation Comments 1. Consider modifying diet to 45 gm CCHO to better meet nutrient needs. 2. MD to modify insulin regimen as needed for optimal glycemic control. Expected Outcomes/Goals Expected Outcomes/Goals Oral intake >75% of meals, weight stable or trend toward IBW, nutrition related lab values WNL. F/U LR 09/04-
--- NOTE | 2019-09-19 22:49 | Psych Progress Note ---
Psych Progress Note - Intro Date of Progress Note: 09/19/19 - Assessment Assessment: Patient interviewed, case discussed with staff, chart and records reviewed. The patient continues to respond to internal stimuli. The patient has episodes of restlessness and irritability and impulsive behavior. The patient is poorly cooperative with the interview. The patient has disorganized thinking. The patient has no plan for self-care. She appears to be tolerating her medications well with no side effects. Intermittently refusing. She is wandering the unit, checking doors, but easily redirectale. - Vitals, I&O Vitals: Vital Signs - 24 hr 09/19/19 09/19/19 09/19/19 06:10 08:00 14:00 Temp 97.3 F 97.8 F HR 70 83 RR 18 16 20 BP 154/69 138/71 O2 Sat % 97 98 09/19/19 20:31 Temp 97.2 F HR 89 RR 20 BP 146/73 O2 Sat % 91 - Objective Psych General Appearance: Report: No acute distress Psych Behavior: Report: Alert, Restless Psych Speech: Report: Mumbled Psych Mood: Report: Anxious Psych Affect: Report: Blunted Psych Thought Process: Report: Auditory Psych Cognition: Report: Confused Psych Insight: Report: Impaired Psych Judgement: Report: Impaired - Plan Plan: Continue current medications and treatment plan. will adjust psychotropics. Continue monitor for behaviors - Review of Relevant Data Review of Relevant Data: I have reviewed the following items and time isabelle (where applicable) has been applied. - Medications Current Medications: Current Medications Albuterol Sulfate (Albuterol 2.5mg/3ml Neb Ud) 2.5 mg HHN Q6HRT [facility] Stop: 10/26/19 17:59 Last Admin: 09/19/19 19:30 Dose: Not Given Allopurinol (Zyloprim) 100 mg PO DAILY [facility] Stop: 10/27/19 08:59 Last Admin: 09/19/19 08:50 Dose: Not Given Aspirin (Aspirin Chewable) 81 mg PO DAILY [facility] Stop: 10/27/19 08:59 Last Admin: 09/19/19 08:50 Dose: Not Given Brimonidine Tartrate (Alphagan 0.1% Ophth Soln) 1 drop EACH EYE HS [facility] Stop: 10/26/19 20:59 Last Admin: 09/19/19 21:00 Dose: Not Given Budesonide (Pulmicort) 0.5 mg HHN BIDRT [facility] Stop: 10/26/19 16:59 Last Admin: 09/19/19 19:30 Dose: Not Given Carvedilol (Coreg) 6.25 mg PO BID [facility] Stop: 10/26/19 16:59 Last Admin: 09/19/19 17:54 Dose: Not Given Dextrose (Glutose 40%) 18.75 gm PO PRN PRN PRN Reason: BS Below 70 if tolerate po Stop: 10/27/19 11:28 Divalproex Sodium (Depakote Dr) 250 mg PO Q8HR [facility]; Protocol Stop: 11/14/19 12:59 Last Admin: 09/19/19 21:00 Dose: 250 mg Donepezil HCl (Aricept) 5 mg PO HS [facility] Stop: 10/30/19 20:59 Last Admin: 09/19/19 21:00 Dose: 5 mg Famotidine (Pepcid) 20 mg PO QDAC [facility] Stop: 10/31/19 07:29 Last Admin: 09/19/19 06:46 Dose: Not Given Ferrous Sulfate (Iron) 325 mg PO BID [facility] Stop: 10/26/19 16:59 Last Admin: 09/19/19 17:55 Dose: Not Given Fluoxetine HCl (Prozac) 20 mg PO DAILY [facility]; Protocol Stop: 10/27/19 08:59 Last Admin: 09/19/19 08:49 Dose: 20 mg Furosemide (Lasix) 20 mg PO DAILY [facility] Stop: 10/27/19 08:59 Last Admin: 09/19/19 08:50 Dose: Not Given Glimepiride (Amaryl) 2 mg PO BID [facility] Stop: 10/26/19 16:59 Last Admin: 09/19/19 17:55 Dose: 2 mg Glucagon (Glucagen) 1 mg IM PRN PRN PRN Reason: BS Below 70 if not tolerate po Stop: 10/27/19 11:28 Insulin Human Lispro (Humalog Insulin Sliding Scale) 0 units SUBQ ACHS [facility]; Protocol Stop: 10/27/19 11:29 Last Admin: 09/19/19 21:00 Dose: Not Given Latanoprost (Xalatan 0.005% Ophth Soln) 1 drop EACH [facility]YE [facility] Stop: 10/26/19 20:59 Last Admin: 05/30/20 21:00 Dose: Not Given Levothyroxine Sodium (Synthroid) 0.05 mg PO QDAC [facility] Stop: 10/27/19 07:29 Last Admin: 09/19/19 06:48 Dose: Not Given Lorazepam (Ativan) 0.5 mg PO Q4HR PRN; Protocol PRN Reason: Anxiety Stop: 10/26/19 01:34 Last Admin: 09/19/19 15:09 Dose: 0.5 mg Memantine (Namenda) 5 mg PO BID [facility] Stop: 11/17/19 16:59 Last Admin: 09/19/19 17:55 Dose: Not Given Metformin HCl (Glucophage) 500 mg PO BID [facility] Stop: 11/09/19 16:59 Last Admin: 09/19/19 17:55 Dose: Not Given Nitroglycerin (Nitrostat) 0.4 mg SL Q5MIN PRN PRN Reason: Chest Pain Stop: 10/26/19 13:25 Potassium Chloride (Klor-Con) 10 meq PO DAILY [facility] Stop: 10/27/19 08:59 Last Admin: 09/19/19 08:50 Dose: Not Given Quetiapine Fumarate 100 mg/Quetiapine Fumarate 50 mg/Quetiapine Fumarate 25 mg 175 mg PO BID [facility] Stop: 11/17/19 16:59 Last Admin: 09/19/19 17:55 Dose: 150 mg Simvastatin (Zocor) 20 mg PO HS [facility]; Protocol Stop: 10/31/19 20:59 Last Admin: 09/19/19 21:00 Dose: 20 mg Valsartan (Diovan) 160 mg PO DAILY [facility] Stop: 10/27/19 08:59 Last Admin: 09/19/19 08:50 Dose: Not Given Zolpidem Tartrate (Ambien) 5 mg PO HS PRN PRN Reason: Insomnia Stop: 10/26/19 01:35 Last Admin: 09/18/19 21:02 Dose: 5 mg
[2019-09-20] MEDS: Albuterol Nebulizer 2.5mg/3mL HHN SCH ×4 (01:00→19:35)
[2019-09-20] MEDS: Budesonide 0.5 Mg/2 mL Ud HHN SCH ×2 (06:29→19:30)
[2019-09-20] MEDS: INSULIN LISPRO SLIDING SCALE 100 UNITS/ML UNIT SUBQ SCH ×4 (06:30→21:00)
[2019-09-20] MEDS: Levothyroxine 0.05 Mg Tab PO SCH (06:31)
[2019-09-20] MEDS: Ferrous Sulfate 325 MG TAB PO SCH ×2 (09:08→17:30)
[2019-09-20] MEDS: Potassium Chloride 10 mEq ER Tab PO SCH (09:09)
[2019-09-20] MEDS: Aspirin 81mg Chewable Tab PO SCH (09:09)
--- NOTE | 2019-09-20 13:02 | Internal Medicine Prog Note ---
Internal Medicine Subjective - Subjective Service Date: 09/20/19 Patient is:: awake, interactive, ambulating Per staff patient has:: no adverse event, no episodes of fall Internal Medicine Objective - Results Recent Labs: Laboratory Last Values POC Glucose 140 MG/DL (70 - 105) H 09/20/19 11:54 - Physical Exam Vitals and I&O: Vital Signs Temp 97 F 09/20/19 06:28 Pulse 79 09/20/19 09:10 Resp 16 09/20/19 07:42 BP 166/91 09/20/19 09:10 Pulse Ox 96 09/20/19 06:28 Intake & Output 09/19/19 09/20/19 09/20/19 18:59 06:59 18:59 Intake Total 800 480 Balance 800 480 Intake: Oral 800 480 Other: # Voids 3 1 # Bowel Movements 0 Stool Characteristics Soft Soft Soft Formed Formed Formed Brown Brown Brown Active Medications: Current Medications Albuterol Sulfate (Albuterol 2.5mg/3ml Neb Ud) 2.5 mg HHN Q6HRT [facility] Stop: 10/26/19 17:59 Last Admin: 09/20/19 06:29 Dose: Not Given Allopurinol (Zyloprim) 100 mg PO DAILY [facility] Stop: 10/27/19 08:59 Last Admin: 09/20/19 09:08 Dose: 100 mg Aspirin (Aspirin Chewable) 81 mg PO DAILY [facility] Stop: 10/27/19 08:59 Last Admin: 09/20/19 09:09 Dose: 81 mg Brimonidine Tartrate (Alphagan 0.1% Ophth Soln) 1 drop EACH EYE HS [facility] Stop: 10/26/19 20:59 Last Admin: 09/19/19 21:00 Dose: Not Given Budesonide (Pulmicort) 0.5 mg HHN BIDRT [facility] Stop: 10/26/19 16:59 Last Admin: 09/20/19 06:29 Dose: Not Given Carvedilol (Coreg) 6.25 mg PO BID [facility] Stop: 10/26/19 16:59 Last Admin: 09/20/19 09:10 Dose: 6.25 mg Dextrose (Glutose 40%) 18.75 gm PO PRN PRN PRN Reason: BS Below 70 if tolerate po Stop: 10/27/19 11:28 Divalproex Sodium (Depakote Dr) 250 mg PO Q8HR [facility]; Protocol Stop: 11/14/19 12:59 Last Admin: 09/20/19 05:00 Dose: Not Given Donepezil HCl (Aricept) 5 mg PO HS [facility] Stop: 10/30/19 20:59 Last Admin: 09/19/19 21:00 Dose: 5 mg Famotidine (Pepcid) 20 mg PO QDAC [facility] Stop: 10/31/19 07:29 Last Admin: 09/20/19 06:30 Dose: Not Given Ferrous Sulfate (Iron) 325 mg PO BID [facility] Stop: 10/26/19 16:59 Last Admin: 09/20/19 09:08 Dose: 325 mg Fluoxetine HCl (Prozac) 20 mg PO DAILY [facility]; Protocol Stop: 10/27/19 08:59 Last Admin: 09/20/19 09:07 Dose: 20 mg Furosemide (Lasix) 20 mg PO DAILY [facility] Stop: 10/27/19 08:59 Last Admin: 09/20/19 09:08 Dose: 20 mg Glimepiride (Amaryl) 2 mg PO BID [facility] Stop: 10/26/19 16:59 Last Admin: 09/20/19 09:08 Dose: 2 mg Glucagon (Glucagen) 1 mg IM PRN PRN PRN Reason: BS Below 70 if not tolerate po Stop: 10/27/19 11:28 Insulin Human Lispro (Humalog Insulin Sliding Scale) 0 units SUBQ ACHS [facility]; Protocol Stop: 10/27/19 11:29 Last Admin: 09/20/19 06:30 Dose: Not Given Latanoprost (Xalatan 0.005% Oph Soln) 1 drop EACH [facility] Stop: 10/26/19 20:59 Last Admin: 09/19/19 21:00 Dose: Not Given Levothyroxine Sodium (Synthroid) 0.05 mg PO QDAC [facility] Stop: 10/27/19 07:29 Last Admin: 09/20/19 06:31 Dose: Not Given Lorazepam (Ativan) 0.5 mg PO Q4HR PRN; Protocol PRN Reason: Anxiety Stop: 10/26/19 01:34 Last Admin: 09/20/19 09:07 Dose: 0.5 mg Memantine (Namenda) 5 mg PO BID [facility] Stop: 11/17/19 16:59 Last Admin: 09/20/19 09:09 Dose: 5 mg Metformin HCl (Glucophage) 500 mg PO BID [facility] Stop: 11/09/19 16:59 Last Admin: 09/20/19 09:10 Dose: 500 mg Nitroglycerin (Nitrostat) 0.4 mg SL Q5MIN PRN PRN Reason: Chest Pain Stop: 10/26/19 13:25 Potassium Chloride (Klor-Con) 10 meq PO DAILY [facility] Stop: 10/27/19 08:59 Last Admin: 09/20/19 09:09 Dose: 10 meq Quetiapine Fumarate 100 mg/Quetiapine Fumarate 50 mg/Quetiapine Fumarate 25 mg 175 mg PO BID [facility] Stop: 11/17/19 16:59 Last Admin: 09/20/19 09:06 Dose: 175 mg Simvastatin (Zocor) 20 mg PO HS [facility]; Protocol Stop: 10/31/19 20:59 Last Admin: 09/19/19 21:00 Dose: 20 mg Valsartan (Diovan) 160 mg PO DAILY [facility] Stop: 10/27/19 08:59 Last Admin: 09/20/19 09:09 Dose: 160 mg Zolpidem Tartrate (Ambien) 5 mg PO HS PRN PRN Reason: Insomnia Stop: 10/26/19 01:35 Last Admin: 09/18/19 21:02 Dose: 5 mg General: obese HEENT: NC/AT Neck: Supple Lungs: CTAB Cardiovascular: RRR, Normal S1, Normal S2 Abdomen: soft, non-tender Extremities: clear Neurological: no change Internal Medicine Assmt/Plan - Assessment Assessment: 1. COPD 2. DM, poorly controlled 3. Psychosis 4. HTN - Plan Plan: continue metformin 500 mg po bid and amaryl 2 mg po bid continue sliding scale insulin continue albuterol nebulizers continue bp monitoring reviewed records and d/w r.n. Nutritional Asmnt/Malnutr-PDOC - Dietary Evaluation Malnutrition Findings (Please click <Entered> for more info): Nutritional Asmnt/Malnutrition Start: 08/29/19 09: 11 Text: Status: Complete Freq: Protocol: Document 08/29/19 09:11 TERRIE (Rec: 08/29/19 09:29 TERRIE CASE- [id number]) Nutritional Asmnt/Malnutrition Patient General Information Nutritional Screening Moderate Risk Diagnosis Psychosis Pertinent Medical Hx/Surgical Hx Diabetes, Hypertension, asthma , arthritis, dementia, parkinsons, hypothyroidism, glaucoma, hyperlipidemia. Subjective Information Patient was admitted from [facility]. [place] speaking. Per nursing notes, patient very suspicious, paranoid that poison powder may be added to her food. Current Diet Order/ Nutrition Support 60 gm CCHO, VIVIEN Patient / S.O Not Indicated Pertinent Medications Pepcid, iron, lasix, glucagon, humalog, synthroid, Metformin , Klor-con Pertinent Labs POC glucose 269 56: HDL 44 Nutritional Hx/Data Height 1.45 m Height (Calculated Centimeters) 144.8 Current Weight (lbs) 67.585 kg Weight (Calculated Kilograms) 67.6 Weight (Calculated Grams) 74367.3 [place] Body Weight 92.5 % [place] Body Weight 161 Body Mass Index (BMI) 32.2 Recent Weight Change No Weight Status Obese GI Symptoms GI Symptoms Nausea Last BM 08/27 x 1 Difficult in: None Food Allergies No Cultural/Ethnic/Christianity Belief none indicated Usual diet at home unknown Skin Integrity/Comment: James Harper 21 Current %PO Good (75-100%) Estimated Nutritional Goals BEE in Kcals: Adj wt of IBW Calories/Kcals/Kg Adj BW 48.4 kg 25-30 kcal/kg Kcals Calculated ~4046-8495 kcal/day Protein: Adj wt of IBW Protein g/k-1.2 gm/kg Protein Calculated ~50-60 gm/day Fluid: ml ~3125-8353 ml/day (1 ml/kcal) Nutritional Problem 1. Problem Problem Altered nutrition related lab values related to Etiology uncontrolled hyperglycemia aeb Signs/Symptoms: POC glucose 269 Intervention/Recommendation Comments 1. Consider modifying diet to 45 gm CCHO to better meet nutrient needs. 2. MD to modify insulin regimen as needed for optimal glycemic control. Expected Outcomes/Goals Expected Outcomes/Goals Oral intake >75% of meals, weight stable or trend toward IBW, nutrition related lab values WNL. F/U LR 09/04-
--- NOTE | 2019-09-20 22:32 | Psych Progress Note ---
Psych Progress Note - Intro Date of Progress Note: 09/20/19 - Assessment Assessment: Patient interviewed, case discussed with staff, chart and records reviewed. The patient is talking to unseen others, pacing the hallways, checking doors. less agitated, need redirection. hygien is poor needs prompting by staff. no med side effects. - Vitals, I&O Vitals: Vital Signs - 24 hr 09/20/19 09/20/19 09/20/19 06:28 07:42 09:08 Temp 97 F HR 79 RR 20 16 BP 166/91 166/91 O2 Sat % 96 09/20/19 09/20/19 09/20/19 09:09 09:10 17:29 Temp HR 79 79 82 RR BP 166/91 166/91 143/65 O2 Sat % 09/20/19 21:10 Temp 97.4 F HR 83 RR 19 BP 122/62 O2 Sat % 99 - Objective Psych General Appearance: Report: No acute distress Psych Behavior: Report: Alert, Restless Psych Speech: Report: Mumbled Psych Mood: Report: Anxious Psych Affect: Report: Blunted Psych Thought Process: Report: Auditory Psych Cognition: Report: Confused Psych Insight: Report: Impaired Psych Judgement: Report: Impaired - Plan Plan: Continue current medications and treatment plan. will adjust psychotropics. Continue monitor for behaviors - Review of Relevant Data Review of Relevant Data: I have reviewed the following items and time isabelle (where applicable) has been applied. - Medications Current Medications: Current Medications Albuterol Sulfate (Albuterol 2.5mg/3ml Neb Ud) 2.5 mg HHN Q6HRT [facility] Stop: 10/26/19 17:59 Last Admin: 09/20/19 13:38 Dose: Not Given Allopurinol (Zyloprim) 100 mg PO DAILY [facility] Stop: 10/27/19 08:59 Last Admin: 09/20/19 09:08 Dose: 100 mg Aspirin (Aspirin Chewable) 81 mg PO DAILY [facility] Stop: 10/27/19 08:59 Last Admin: 09/20/19 09:09 Dose: 81 mg Brimonidine Tartrate (Alphagan 0.1% Ophth Soln) 1 drop EACH EYE HS [facility] Stop: 10/26/19 20:59 Last Admin: 09/19/19 21:00 Dose: Not Given Budesonide (Pulmicort) 0.5 mg HHN BIDRT [facility] Stop: 10/26/19 16:59 Last Admin: 09/20/19 06:29 Dose: Not Given Carvedilol (Coreg) 6.25 mg PO BID [facility] Stop: 10/26/19 16:59 Last Admin: 09/20/19 17:29 Dose: 6.25 mg Dextrose (Glutose 40%) 18.75 gm PO PRN PRN PRN Reason: BS Below 70 if tolerate po Stop: 10/27/19 11:28 Divalproex Sodium (Depakote Dr) 250 mg PO Q8HR [facility]; Protocol Stop: 11/14/19 12:59 Last Admin: 09/20/19 15:54 Dose: Not Given Donepezil HCl (Aricept) 5 mg PO HS [facility] Stop: 10/30/19 20:59 Last Admin: 09/19/19 21:00 Dose: 5 mg Famotidine (Pepcid) 20 mg PO QDAC [facility] Stop: 10/31/19 07:29 Last Admin: 09/20/19 06:30 Dose: Not Given Ferrous Sulfate (Iron) 325 mg PO BID [facility] Stop: 10/26/19 16:59 Last Admin: 09/20/19 17:30 Dose: Not Given Fluoxetine HCl (Prozac) 20 mg PO DAILY [facility]; Protocol Stop: 10/27/19 08:59 Last Admin: 09/20/19 09:07 Dose: 20 mg Furosemide (Lasix) 20 mg PO DAILY [facility] Stop: 10/27/19 08:59 Last Admin: 09/20/19 09:08 Dose: 20 mg Glimepiride (Amaryl) 2 mg PO BID [facility] Stop: 10/26/19 16:59 Last Admin: 09/20/19 17:29 Dose: 2 mg Glucagon (Glucagen) 1 mg IM PRN PRN PRN Reason: BS Below 70 if not tolerate po Stop: 10/27/19 11:28 Insulin Human Lispro (Humalog Insulin Sliding Scale) 0 units SUBQ ACHS [facility]; Protocol Stop: 10/27/19 11:29 Last Admin: 09/20/19 17:29 Dose: Not Given Latanoprost (Xalatan 0.005% Ophth Soln) 1 drop EACH EYE [facility] Stop: 10/26/19 20:59 Last Admin: 09/19/19 21:00 Dose: Not Given Levothyroxine Sodium (Synthroid) 0.05 mg PO QDAC [facility] Stop: 10/27/19 07:29 Last Admin: 09/20/19 06:31 Dose: Not Given Lorazepam (Ativan) 0.5 mg PO Q4HR PRN; Protocol PRN Reason: Anxiety Stop: 10/26/19 01:34 Last Admin: 09/20/19 17:28 Dose: 0.5 mg Memantine (Namenda) 5 mg PO BID [facility] Stop: 11/17/19 16:59 Last Admin: 09/20/19 17:28 Dose: 5 mg Metformin HCl (Glucophage) 500 mg PO BID [facility] Stop: 11/09/19 16:59 Last Admin: 09/20/19 17:29 Dose: 500 mg Nitroglycerin (Nitrostat) 0.4 mg SL Q5MIN PRN PRN Reason: Chest Pain Stop: 10/26/19 13:25 Potassium Chloride (Klor-Con) 10 meq PO DAILY [facility] Stop: 10/27/19 08:59 Last Admin: 09/20/19 09:09 Dose: 10 meq Quetiapine Fumarate 100 mg/Quetiapine Fumarate 50 mg/Quetiapine Fumarate 25 mg 175 mg PO BID [facility] Stop: 11/17/19 16:59 Last Admin: 09/20/19 17:29 Dose: 175 mg Simvastatin (Zocor) 20 mg PO HS [facility]; Protocol Stop: 10/31/19 20:59 Last Admin: 09/19/19 21:00 Dose: 20 mg Valsartan (Diovan) 160 mg PO DAILY [facility] Stop: 10/27/19 08:59 Last Admin: 09/20/19 09:09 Dose: 160 mg Zolpidem Tartrate (Ambien) 5 mg PO HS PRN PRN Reason: Insomnia Stop: 10/26/19 01:35 Last Admin: 09/18/19 21:02 Dose: 5 mg
[2019-09-21] MEDS: Albuterol Nebulizer 2.5mg/3mL HHN SCH ×4 (01:00→18:02)
[2019-09-21] MEDS: Budesonide 0.5 Mg/2 mL Ud HHN SCH ×2 (06:23→18:02)
[2019-09-21] MEDS: INSULIN LISPRO SLIDING SCALE 100 UNITS/ML UNIT SUBQ SCH ×4 (06:33→22:16)
[2019-09-21] MEDS: Levothyroxine 0.05 Mg Tab PO SCH (06:36)
[2019-09-21] MEDS: Aspirin 81mg Chewable Tab PO SCH (09:57)
[2019-09-21] MEDS: Ferrous Sulfate 325 MG TAB PO SCH ×2 (09:58→17:56)
[2019-09-21] MEDS: Potassium Chloride 10 mEq ER Tab PO SCH (09:59)
[2019-09-22] MEDS: Albuterol Nebulizer 2.5mg/3mL HHN SCH ×4 (00:58→19:59)
--- NOTE | 2019-09-22 04:27 | Progress Notes ---
DATE: 09/21/2019 Case was discussed with staff of the patient, reviewed records. The patient continues to be bizarre acting out. She did end up getting her medications, though she is selective. Her sleep and appetite varies. Continues to be at risk for discharge because of her bizarre acting out behavior. She is tolerating increase in Seroquel with no side effects of increasing the dose to 200 mg twice a day. No side effects with the medication, no sedation, no nausea, no extrapyramidal symptoms. We will continue outpatient group therapy, milieu therapy, and adjust medication as needed. JOB# [id number]
[2019-09-22] MEDS: Budesonide 0.5 Mg/2 mL Ud HHN SCH ×2 (06:51→19:59)
[2019-09-22] MEDS: Levothyroxine 0.05 Mg Tab PO SCH (06:51)
[2019-09-22] MEDS: INSULIN LISPRO SLIDING SCALE 100 UNITS/ML UNIT SUBQ SCH ×4 (06:52→21:32)
[2019-09-22] MEDS: Ferrous Sulfate 325 MG TAB PO SCH ×2 (09:29→17:37)
[2019-09-22] MEDS: Aspirin 81mg Chewable Tab PO SCH (09:29)
[2019-09-22] MEDS: Potassium Chloride 10 mEq ER Tab PO SCH (09:29)
--- NOTE | 2019-09-22 13:32 | Progress Notes ---
DATE: 09/22/2019 Case was discussed with staff of the patient, reviewed records. The patient had been selective in taking her medications, though she took it yesterday. I talked to her son to see if they feel comfortable taking her home and get 24-hour care or maybe go to a nursing facility because she has been selective in taking her medication. She is on a voluntary basis and though they got her hearing aid, but she takes them out, so it is hard to communicate with her. Son said that they will think about it. Also, I was thinking, maybe we need to send her to a nursing facility where she will continue to be in treatment, but she will be in a locked facility because she told me concern was, she tends to wander away from the house. The patient is sleeping well, eating well. No side effects with the medication, no sedation, no nausea, no extrapyramidal symptoms. We will continue outpatient group therapy, milieu therapy, and adjust medications as needed. JOB# [id number] ANTONIO
--- NOTE | 2019-09-22 15:42 | Internal Medicine Prog Note ---
Internal Medicine Subjective - Subjective Service Date: 09/22/19 (confused) Patient is:: awake, interactive, ambulating Per staff patient has:: no adverse event, no episodes of fall Internal Medicine Objective - Results Recent Labs: Laboratory Last Values POC Glucose 126 MG/DL (70 - 105) H 09/22/19 11:13 - Physical Exam Vitals and I&O: Vital Signs Temp 96.9 F 09/22/19 14:00 Pulse 81 09/22/19 14:00 Resp 20 09/22/19 14:00 BP 155/66 09/22/19 14:00 Pulse Ox 97 09/22/19 14:00 Intake & Output 09/21/19 09/22/19 09/22/19 18:59 06:59 18:59 Intake Total 1000 240 550 Balance 1000 240 550 Intake: Oral 1000 240 550 Other: # Voids 4 3 # Bowel Movements 1 0 Active Medications: Current Medications Albuterol Sulfate (Albuterol 2.5mg/3ml Neb Ud) 2.5 mg HHN Q6HRT [facility] Stop: 10/26/19 17:59 Last Admin: 09/22/19 12:39 Dose: Not Given Allopurinol (Zyloprim) 100 mg PO DAILY [facility] Stop: 10/27/19 08:59 Last Admin: 09/22/19 09:29 Dose: Not Given Aspirin (Aspirin Chewable) 81 mg PO DAILY [facility] Stop: 10/27/19 08:59 Last Admin: 09/22/19 09:29 Dose: Not Given Brimonidine Tartrate (Alphagan 0.1% Ophth Soln) 1 drop EACH EYE HS [facility] Stop: 10/26/19 20:59 Last Admin: 09/21/19 22:16 Dose: Not Given Budesonide (Pulmicort) 0.5 mg HHN BIDRT [facility] Stop: 10/26/19 16:59 Last Admin: 09/22/19 06:51 Dose: Not Given Carvedilol (Coreg) 6.25 mg PO BID [facility] Stop: 10/26/19 16:59 Last Admin: 09/22/19 09:26 Dose: Not Given Dextrose (Glutose 40%) 18.75 gm PO PRN PRN PRN Reason: BS Below 70 if tolerate po Stop: 10/27/19 11:28 Divalproex Sodium (Depakote Dr) 250 mg PO Q8HR [facility]; Protocol Stop: 11/14/19 12:59 Last Admin: 09/22/19 12:39 Dose: Not Given Donepezil HCl (Aricept) 5 mg PO HS [facility] Stop: 10/30/19 20:59 Last Admin: 09/21/19 22:16 Dose: 5 mg Famotidine (Pepcid) 20 mg PO QDAC [facility] Stop: 10/31/19 07:29 Last Admin: 09/22/19 06:51 Dose: Not Given Ferrous Sulfate (Iron) 325 mg PO BID [facility] Stop: 10/26/19 16:59 Last Admin: 09/22/19 09:29 Dose: Not Given Fluoxetine HCl (Prozac) 20 mg PO DAILY [facility]; Protocol Stop: 10/27/19 08:59 Last Admin: 09/22/19 09:25 Dose: Not Given Furosemide (Lasix) 20 mg PO DAILY [facility] Stop: 10/27/19 08:59 Last Admin: 09/22/19 09:26 Dose: Not Given Glimepiride (Amaryl) 2 mg PO BID [facility] Stop: 10/26/19 16:59 Last Admin: 09/22/19 09:28 Dose: Not Given Glucagon (Glucagen) 1 mg IM PRN PRN PRN Reason: BS Below 70 if not tolerate po Stop: 10/27/19 11:28 Insulin Human Lispro (Humalog Insulin Sliding Scale) 0 units SUBQ [facility]; Protocol Stop: 10/27/19 11:29 Last Admin: 09/22/19 11:29 Dose: Not Given Latanoprost (Xalatan 0.005% Oph Soln) 1 drop EACH EYE [facility] Stop: 10/26/19 20:59 Last Admin: 09/21/19 22:16 Dose: Not Given Levothyroxine Sodium (Synthroid) 0.05 mg PO QDAC [facility] Stop: 10/27/19 07:29 Last Admin: 09/22/19 06:51 Dose: Not Given Lorazepam (Ativan) 0.5 mg PO Q4HR PRN; Protocol PRN Reason: Anxiety Stop: 10/26/19 01:34 Last Admin: 09/20/19 17:28 Dose: 0.5 mg Memantine (Namenda) 5 mg PO BID [facility] Stop: 07/28/20 16:59 Last Admin: 09/22/19 09:29 Dose: Not Given Metformin HCl (Glucophage) 500 mg PO BID [facility] Stop: 11/09/19 16:59 Last Admin: 09/22/19 09:25 Dose: Not Given Nitroglycerin (Nitrostat) 0.4 mg SL Q5MIN PRN PRN Reason: Chest Pain Stop: 10/26/19 13:25 Potassium Chloride (Klor-Con) 10 meq PO DAILY [facility] Stop: 10/27/19 08:59 Last Admin: 09/22/19 09:29 Dose: Not Given Quetiapine Fumarate (Seroquel) 200 mg PO BID [facility] Stop: 11/20/19 16:59 Last Admin: 09/22/19 09:25 Dose: Not Given Simvastatin (Zocor) 20 mg PO HS [facility]; Protocol Stop: 10/31/19 20:59 Last Admin: 09/21/19 22:16 Dose: 20 mg Valsartan (Diovan) 160 mg PO DAILY [facility] Stop: 10/27/19 08:59 Last Admin: 09/22/19 09:28 Dose: Not Given Zolpidem Tartrate (Ambien) 5 mg PO HS PRN PRN Reason: Insomnia Stop: 10/26/19 01:35 Last Admin: 09/18/19 21:02 Dose: 5 mg General: obese HEENT: NC/AT Neck: Supple Lungs: CTAB Cardiovascular: RRR, Normal S1, Normal S2 Abdomen: soft, non-tender Extremities: clear Neurological: no change Internal Medicine Assmt/Plan - Assessment Assessment: 1. COPD 2. DM, poorly controlled 3. Psychosis 4. HTN - Plan Plan: continue metformin 500 mg po bid and amaryl 2 mg po bid reviewed blood sugar diary reviewed records and d/w r.n. Nutritional Asmnt/Malnutr-PDOC - Dietary Evaluation Malnutrition Findings (Please click <Entered> for more info): Nutritional Asmnt/Malnutrition Start: 08/29/19 09: 11 Text: Status: Complete Freq: Protocol: Document 08/29/19 09:11 TERRIE (Rec: 08/29/19 09:29 TERRIE MANPREET- [id number]) Nutritional Asmnt/Malnutrition Patient General Information Nutritional Screening Moderate Risk Diagnosis Psychosis Pertinent Medical Hx/Surgical Hx Diabetes, Hypertension, asthma , arthritis, dementia, parkinsons, hypothyroidism, glaucoma, hyperlipidemia. Subjective Information Patient was admitted from [facility]. [place] speaking. Per nursing notes, patient very suspicious, paranoid that poison powder may be added to her food. Current Diet Order/ Nutrition Support 60 gm CCHO, VIVIEN Patient / S.O Not Indicated Pertinent Medications Pepcid, iron, lasix, glucagon, humalog, synthroid, Metformin , Klor-con Pertinent Labs POC glucose 269 08/25: HDL 44 Nutritional Hx/Data Height 1.45 m Height (Calculated Centimeters) 144.8 Current Weight (lbs) 67.585 kg Weight (Calculated Kilograms) 67.6 Weight (Calculated Grams) 53588.3 [place] Body Weight 92.5 % [place] Body Weight 161 Body Mass Index (BMI) 32.2 Recent Weight Change No Weight Status Obese GI Symptoms GI Symptoms Nausea Last BM 08/27 x 1 Difficult in: None Food Allergies No Cultural/Ethnic/Faith Belief none indicated Usual diet at home unknown Skin Integrity/Comment: Intact, James 21 Current %PO Good (75-100%) Estimated Nutritional Goals BEE in Kcals: Adj wt of IBW Calories/Kcals/Kg Adj BW 48.4 kg 25-30 kcal/kg Kcals Calculated ~9635-4997 kcal/day Protein: Adj wt of IBW Protein g/k-1.2 gm/kg Protein Calculated ~50-60 gm/day Fluid: ml ~8081-4100 ml/day (1 ml/kcal) Nutritional Problem 1. Problem Problem Altered nutrition related lab values related to Etiology uncontrolled hyperglycemia aeb Signs/Symptoms: POC glucose 269 Intervention/Recommendation Comments 1. Consider modifying diet to 45 gm CCHO to better meet nutrient needs. 2. MD to modify insulin regimen as needed for optimal glycemic control. Expected Outcomes/Goals Expected Outcomes/Goals Oral intake >75% of meals, weight stable or trend toward IBW, nutrition related lab values WNL. F/U LR 09/04-
[2019-09-23] MEDS: Albuterol Nebulizer 2.5mg/3mL HHN SCH ×4 (00:55→18:08)
[2019-09-23] MEDS: Budesonide 0.5 Mg/2 mL Ud HHN SCH ×2 (06:23→18:08)
[2019-09-23] MEDS: Levothyroxine 0.05 Mg Tab PO SCH (06:39)
[2019-09-23] MEDS: INSULIN LISPRO SLIDING SCALE 100 UNITS/ML UNIT SUBQ SCH ×4 (06:39→21:57)
[2019-09-23] MEDS: Potassium Chloride 10 mEq ER Tab PO SCH (09:10)
[2019-09-23] MEDS: Ferrous Sulfate 325 MG TAB PO SCH ×2 (09:12→16:18)
[2019-09-23] MEDS: Aspirin 81mg Chewable Tab PO SCH (09:12)
--- NOTE | 2019-09-23 15:23 | Internal Medicine Prog Note ---
Internal Medicine Subjective - Subjective Service Date: 09/23/19 Patient seen and examined:: without staff Patient is:: awake, interactive, ambulating Per staff patient has:: no adverse event, no episodes of fall Internal Medicine Objective - Results Recent Labs: Laboratory Last Values POC Glucose 186 MG/DL (70 - 105) H 09/23/19 11:09 - Physical Exam Vitals and I&O: Vital Signs Temp 97.4 F 09/23/19 14:00 Pulse 88 09/23/19 14:00 Resp 18 09/23/19 14:00 BP 163/85 09/23/19 14:00 Pulse Ox 97 09/23/19 14:00 Intake & Output 09/22/19 09/23/19 09/23/19 18:59 06:59 18:59 Intake Total 1030 240 Balance 1030 240 Intake: Oral 910 240 Other 120 Other: # Voids 3 # Bowel Movements 0 Active Medications: Current Medications Albuterol Sulfate (Albuterol 2.5mg/3ml Neb Ud) 2.5 mg HHN Q6HRT [facility] Stop: 10/26/19 17:59 Last Admin: 09/23/19 12:13 Dose: Not Given Allopurinol (Zyloprim) 100 mg PO DAILY [facility] Stop: 10/27/19 08:59 Last Admin: 09/23/19 09:12 Dose: Not Given Aspirin (Aspirin Chewable) 81 mg PO DAILY [facility] Stop: 10/27/19 08:59 Last Admin: 09/23/19 09:12 Dose: Not Given Brimonidine Tartrate (Alphagan 0.1% Ophth Soln) 1 drop EACH EYE HS [facility] Stop: 10/26/19 20:59 Last Admin: 09/22/19 21:11 Dose: 1 drop Budesonide (Pulmicort) 0.5 mg HHN BIDRT [facility] Stop: 10/26/19 16:59 Last Admin: 09/23/19 06:23 Dose: Not Given Carvedilol (Coreg) 6.25 mg PO BID [facility] Stop: 10/26/19 16:59 Last Admin: 09/23/19 09:10 Dose: 6.25 mg Dextrose (Glutose 40%) 18.75 gm PO PRN PRN PRN Reason: BS Below 70 if tolerate po Stop: 10/27/19 11:28 Divalproex Sodium (Depakote Dr) 250 mg PO Q8HR [facility]; Protocol Stop: 11/14/19 12:59 Last Admin: 09/23/19 12:14 Dose: Not Given Donepezil HCl (Aricept) 5 mg PO HS [facility] Stop: 10/30/19 20:59 Last Admin: 09/22/19 21:11 Dose: 5 mg Famotidine (Pepcid) 20 mg PO QDAC [facility] Stop: 10/31/19 07:29 Last Admin: 09/23/19 06:39 Dose: Not Given Ferrous Sulfate (Iron) 325 mg PO BID [facility] Stop: 10/26/19 16:59 Last Admin: 09/23/19 09:12 Dose: Not Given Fluoxetine HCl (Prozac) 20 mg PO DAILY [facility]; Protocol Stop: 10/27/19 08:59 Last Admin: 09/23/19 09:10 Dose: 20 mg Furosemide (Lasix) 20 mg PO DAILY [facility] Stop: 10/27/19 08:59 Last Admin: 09/23/19 09:11 Dose: 20 mg Glimepiride (Amaryl) 2 mg PO BID [facility] Stop: 10/26/19 16:59 Last Admin: 09/23/19 09:09 Dose: Not Given Glucagon (Glucagen) 1 mg IM PRN PRN PRN Reason: BS Below 70 if not tolerate po Stop: 10/27/19 11:28 Insulin Human Lispro (Humalog Insulin Sliding Scale) 0 units SUBQ [facility]; Protocol Stop: 10/27/19 11:29 Last Admin: 09/23/19 11:34 Dose: 3 units Latanoprost (Xalatan 0.005% Oph Soln) 1 drop EACH EYE [facility] Stop: 10/26/19 20:59 Last Admin: 09/22/19 21:11 Dose: 1 drop Levothyroxine Sodium (Synthroid) 0.05 mg PO QDAC [facility] Stop: 10/27/19 07:29 Last Admin: 09/23/19 06:39 Dose: Not Given Lorazepam (Ativan) 0.5 mg PO Q4HR PRN; Protocol PRN Reason: Anxiety Stop: 10/26/19 01:34 Last Admin: 09/20/19 17:28 Dose: 0.5 mg Memantine (Namenda) 5 mg PO BID [facility] Stop: 11/17/19 16:59 Last Admin: 09/23/19 09:12 Dose: Not Given Metformin HCl (Glucophage) 500 mg PO BID [facility] Stop: 11/09/19 16:59 Last Admin: 09/23/19 09:12 Dose: 500 mg Nitroglycerin (Nitrostat) 0.4 mg SL Q5MIN PRN PRN Reason: Chest Pain Stop: 10/26/19 13:25 Potassium Chloride (Klor-Con) 10 meq PO DAILY [facility] Stop: 10/27/19 08:59 Last Admin: 09/23/19 09:10 Dose: Not Given Quetiapine Fumarate (Seroquel) 200 mg PO BID [facility] Stop: 11/20/19 16:59 Last Admin: 09/23/19 09:12 Dose: 200 mg Simvastatin (Zocor) 20 mg PO HS [facility]; Protocol Stop: 10/31/19 20:59 Last Admin: 09/22/19 21:11 Dose: 20 mg Valsartan (Diovan) 160 mg PO DAILY [facility] Stop: 10/27/19 08:59 Last Admin: 09/23/19 09:11 Dose: Not Given Zolpidem Tartrate (Ambien) 5 mg PO HS PRN PRN Reason: Insomnia Stop: 10/26/19 01:35 Last Admin: 09/18/19 21:02 Dose: 5 mg General: obese HEENT: NC/AT Neck: Supple Lungs: CTAB Cardiovascular: RRR, Normal S1, Normal S2 Abdomen: soft, non-tender Extremities: clear Neurological: no change Internal Medicine Assmt/Plan - Assessment Assessment: 1. HTN, poorly controlled 2. DM, poorly controlled 3. Psychosis - Plan Plan: start norvasc 5 mg po daily. first dose now continue metformin 500 mg po bid and amaryl 2 mg po bid reviewed blood sugar diary reviewed records and d/w r.n. Nutritional Asmnt/Malnutr-PDOC - Dietary Evaluation Malnutrition Findings (Please click <Entered> for more info): Nutritional Asmnt/Malnutrition Start: 08/29/19 09: 11 Text: Status: Complete Freq: Protocol: Document 08/29/19 09:11 TERRIE (Rec: 08/29/19 09:29 TERRIE CASE- [id number]) Nutritional Asmnt/Malnutrition Patient General Information Nutritional Screening Moderate Risk Diagnosis Psychosis Pertinent Medical Hx/Surgical Hx Diabetes, Hypertension, asthma , arthritis, dementia, parkinsons, hypothyroidism, glaucoma, hyperlipidemia. Subjective Information Patient was admitted from [facility]. [place] speaking. Per nursing notes, patient very suspicious, paranoid that poison powder may be added to her food. Current Diet Order/ Nutrition Support 60 gm CCHO, VIVIEN Patient / S.O Not Indicated Pertinent Medications Pepcid, iron, lasix, glucagon, humalog, synthroid, Metformin , Klor-con Pertinent Labs POC glucose 269 08/25: HDL 44 Nutritional Hx/Data Height 1.45 m Height (Calculated Centimeters) 144.8 Current Weight (lbs) 67.585 kg Weight (Calculated Kilograms) 67.6 Weight (Calculated Grams) 80681.3 [place] Body Weight 92.5 % [place] Body Weight 161 Body Mass Index (BMI) 32.2 Recent Weight Change No Weight Status Obese GI Symptoms GI Symptoms Nausea Last BM 08/27 x 1 Difficult in: None Food Allergies No Cultural/Ethnic/Moravian Belief none indicated Usual diet at home unknown Skin Integrity/Comment: Intact, James 21 Current %PO Good (75-100%) Estimated Nutritional Goals BEE in Kcals: Adj wt of IBW Calories/Kcals/Kg Adj BW 48.4 kg 25-30 kcal/kg Kcals Calculated ~7665-6180 kcal/day Protein: Adj wt of IBW Protein g/k-1.2 gm/kg Protein Calculated ~50-60 gm/day Fluid: ml ~6751-2235 ml/day (1 ml/kcal) Nutritional Problem 1. Problem Problem Altered nutrition related lab values related to Etiology uncontrolled hyperglycemia aeb Signs/Symptoms: POC glucose 269 Intervention/Recommendation Comments 1. Consider modifying diet to 45 gm CCHO to better meet nutrient needs. 2. MD to modify insulin regimen as needed for optimal glycemic control. Expected Outcomes/Goals Expected Outcomes/Goals Oral intake >75% of meals, weight stable or trend toward IBW, nutrition related lab values WNL. F/U LR 09/04-
--- NOTE | 2019-09-24 00:18 | Progress Notes ---
DATE: 09/23/2019 Case was discussed with staff of the patient, reviewed records, also discussed the case with her son again. I talked to him yesterday too and I gave him the number of [facility] to talk to them and see if he thinks it will be a good place to send her until she is a little bit better. She is already a little bit better, I think. We are not sure of her basic level of functioning. She tends to wander. She wants to go home. She does take her medication, but sometimes she refuses. She was tested for blake and she is negative. Her lab work showed chemistry panel with high blood sugar, the rest within normal range. She is sleeping well. She eats well. No side effects with the medication, no sedation, no nausea, no extrapyramidal symptoms. Hemoglobin A1c 7.8, which is high. Lipid panel within normal range. CBC with high monocyte, high eosinophil. Urine drug screen was positive for benzodiazepine and tricyclic. Urinalysis within normal range. We will continue to work with the patient in group therapy, milieu therapy, and adjust the medication as needed. JOB# [id number]
[2019-09-24] MEDS: Albuterol Nebulizer 2.5mg/3mL HHN SCH ×4 (01:30→18:12)
[2019-09-24] MEDS: Budesonide 0.5 Mg/2 mL Ud HHN SCH ×2 (06:49→18:12)
[2019-09-24] MEDS: INSULIN LISPRO SLIDING SCALE 100 UNITS/ML UNIT SUBQ SCH ×4 (06:50→21:50)
[2019-09-24] MEDS: Levothyroxine 0.05 Mg Tab PO SCH (06:51)
[2019-09-24] MEDS: Potassium Chloride 10 mEq ER Tab PO SCH (09:24)
[2019-09-24] MEDS: Aspirin 81mg Chewable Tab PO SCH (09:24)
[2019-09-24] MEDS: Ferrous Sulfate 325 MG TAB PO SCH ×2 (09:24→17:29)
--- NOTE | 2019-09-24 13:07 | Progress Notes ---
DATE: 09/24/2019 Case was discussed with staff of the patient, reviewed records and discussed to refuse medication. I talked to her son again this morning and actually I was trying to reach her; however, found out that she has a power of science liaison for health and when I was talking to him, he said they decided to take her home. He reported that the patient was taking medication on a regular basis when she was home and they prefer to take her home. I raised with him to talk to him at length today later when I have at times to discuss issues with them prior to her discharge. The patient is sleeping well. She can feed herself, but she is still like her to be wearing her hearing aid. Her son told me that she has no prior psychiatric treatment until this happened, so I told him it is was probably she is more on the dementia side. I discussed him that I already have her on Aricept and Namenda, but I stopped trying to adjust her medication because she has not been taking it and so far when she takes it no side effects, sometimes she does take it and the patient with agreement with the family that they will be taking her home hopefully tomorrow and also will be referring her to home health, so they can come and the family take care of the patient and educate them about how to take care of her. We will continue outpatient group therapy, milieu therapy, adjust medication as needed. JOB# [id number]
--- NOTE | 2019-09-24 14:17 | Internal Medicine Prog Note ---
Internal Medicine Subjective - Subjective Service Date: 09/24/19 Patient is:: awake, interactive, ambulating Per staff patient has:: no adverse event, no episodes of fall Internal Medicine Objective - Results Recent Labs: Laboratory Last Values POC Glucose 130 MG/DL (70 - 105) H 09/24/19 11:12 - Physical Exam Vitals and I&O: Vital Signs Temp 97.5 F 09/24/19 06:15 Pulse 70 09/24/19 09:45 Resp 17 09/24/19 08:00 BP 139/61 09/24/19 09:46 Pulse Ox 97 09/24/19 06:15 Intake & Output 09/23/19 09/24/19 09/24/19 18:59 06:59 18:59 Intake Total 1000 120 Balance 1000 120 Intake: Oral 1000 120 Other: # Voids 2 1 # Bowel Movements 0 0 Active Medications: Current Medications Albuterol Sulfate (Albuterol 2.5mg/3ml Neb Ud) 2.5 mg HHN Q6HRT [facility] Stop: 10/26/19 17:59 Last Admin: 09/24/19 13:28 Dose: Not Given Allopurinol (Zyloprim) 100 mg PO DAILY [facility] Stop: 10/27/19 08:59 Last Admin: 09/24/19 09:24 Dose: Not Given Amlodipine Besylate (Norvasc) 5 mg PO DAILY [facility] Stop: 11/22/19 15:29 Last Admin: 09/24/19 09:45 Dose: Not Given Aspirin (Aspirin Chewable) 81 mg PO DAILY [facility] Stop: 10/27/19 08:59 Last Admin: 09/24/19 09:24 Dose: Not Given Brimonidine Tartrate (Alphagan 0.1% Ophth Soln) 1 drop EACH EYE HS [facility] Stop: 10/26/19 20:59 Last Admin: 09/23/19 21:56 Dose: Not Given Budesonide (Pulmicort) 0.5 mg HHN BIDRT [facility] Stop: 10/26/19 16:59 Last Admin: 09/24/19 06:49 Dose: Not Given Carvedilol (Coreg) 6.25 mg PO BID [facility] Stop: 10/26/19 16:59 Last Admin: 09/24/19 09:45 Dose: Not Given Dextrose (Glutose 40%) 18.75 gm PO PRN PRN PRN Reason: BS Below 70 if tolerate po Stop: 10/27/19 11:28 Divalproex Sodium (Depakote Dr) 250 mg PO Q8HR [facility]; Protocol Stop: 11/14/19 12:59 Last Admin: 09/24/19 13:28 Dose: Not Given Donepezil HCl (Aricept) 5 mg PO HS [facility] Stop: 10/30/19 20:59 Last Admin: 09/23/19 21:56 Dose: 5 mg Famotidine (Pepcid) 20 mg PO QDAC [facility] Stop: 10/31/19 07:29 Last Admin: 09/24/19 06:49 Dose: 20 mg Ferrous Sulfate (Iron) 325 mg PO BID [facility] Stop: 10/26/19 16:59 Last Admin: 09/24/19 09:24 Dose: Not Given Fluoxetine HCl (Prozac) 20 mg PO DAILY [facility]; Protocol Stop: 10/27/19 08:59 Last Admin: 09/24/19 09:23 Dose: 20 mg Furosemide (Lasix) 20 mg PO DAILY [facility] Stop: 10/27/19 08:59 Last Admin: 09/24/19 09:46 Dose: Not Given Glimepiride (Amaryl) 2 mg PO BID [facility] Stop: 10/26/19 16:59 Last Admin: 09/24/19 09:24 Dose: Not Given Glucagon (Glucagen) 1 mg IM PRN PRN PRN Reason: BS Below 70 if not tolerate po Stop: 10/27/19 11:28 Insulin Human Lispro (Humalog Insulin Sliding Scale) 0 units SUBQ ACHS [facility]; Protocol Stop: 10/27/19 11:29 Last Admin: 09/24/19 11:19 Dose: Not Given Latanoprost (Xalatan 0.005% Ophth Soln) 1 drop EACH EYE [facility] Stop: 10/26/19 20:59 Last Admin: 09/23/19 21:57 Dose: Not Given Levothyroxine Sodium (Synthroid) 0.05 mg PO QDAC [facility] Stop: 10/27/19 07:29 Last Admin: 09/24/19 06:51 Dose: 0.05 mg Memantine (Namenda) 5 mg PO BID [facility] Stop: 11/17/19 16:59 Last Admin: 09/24/19 09:23 Dose: 5 mg Metformin HCl (Glucophage) 500 mg PO BID [facility] Stop: 11/09/19 16:59 Last Admin: 09/24/19 09:23 Dose: 500 mg Nitroglycerin (Nitrostat) 0.4 mg SL Q5MIN PRN PRN Reason: Chest Pain Stop: 10/26/19 13:25 Potassium Chloride (Klor-Con) 10 meq PO DAILY [facility] Stop: 10/27/19 08:59 Last Admin: 09/24/19 09:24 Dose: Not Given Quetiapine Fumarate (Seroquel) 200 mg PO BID [facility] Stop: 11/20/19 16:59 Last Admin: 09/24/19 09:23 Dose: 200 mg Simvastatin (Zocor) 20 mg PO HS [facility]; Protocol Stop: 10/31/19 20:59 Last Admin: 09/23/19 21:58 Dose: 20 mg Valsartan (Diovan) 160 mg PO DAILY [facility] Stop: 10/27/19 08:59 Last Admin: 09/24/19 09:23 Dose: 160 mg General: obese HEENT: NC/AT Neck: Supple Lungs: CTAB Cardiovascular: RRR, Normal S1, Normal S2 Abdomen: soft, non-tender Extremities: clear Neurological: no change Internal Medicine Assmt/Plan - Assessment Assessment: 1. HTN, better controlled 2. DM, poorly controlled 3. Psychosis - Plan Plan: continue norvasc 5 mg po daily. continue metformin 500 mg po bid and amaryl 2 mg po bid reviewed blood sugar diary reviewed records and d/w r.n. Nutritional Asmnt/Malnutr-PDOC - Dietary Evaluation Malnutrition Findings (Please click <Entered> for more info): Nutritional Asmnt/Malnutrition Start: 08/29/19 09: 11 Text: Status: Complete Freq: Protocol: Document 08/29/19 09:11 TERRIE (Rec: 08/29/19 09:29 TERRIE MANPREET- [id number]) Nutritional Asmnt/Malnutrition Patient General Information Nutritional Screening Moderate Risk Diagnosis Psychosis Pertinent Medical Hx/Surgical Hx Diabetes, Hypertension, asthma , arthritis, dementia, parkinsons, hypothyroidism, glaucoma, hyperlipidemia. Subjective Information Patient was admitted from [facility]. Telugu speaking. Per nursing notes, patient very suspicious, paranoid that poison powder may be added to her food. Current Diet Order/ Nutrition Support 60 gm CCHO, VIVIEN Patient / S.O Not Indicated Pertinent Medications Pepcid, iron, lasix, glucagon, humalog, synthroid, Metformin , Klor-con Pertinent Labs POC glucose 269 08/25: HDL 44 Nutritional Hx/Data Height 1.45 m Height (Calculated Centimeters) 144.8 Current Weight (lbs) 67.585 kg Weight (Calculated Kilograms) 67.6 Weight (Calculated Grams) 29264.3 [place] Body Weight 92.5 % [place] Body Weight 161 Body Mass Index (BMI) 32.2 Recent Weight Change No Weight Status Obese GI Symptoms GI Symptoms Nausea Last BM 08/27 x 1 Difficult in: None Food Allergies No Cultural/Ethnic/Episcopalian Belief none indicated Usual diet at home unknown Skin Integrity/Comment: Intact, James 21 Current %PO Good (75-100%) Estimated Nutritional Goals BEE in Kcals: Adj wt of IBW Calories/Kcals/Kg Adj BW 48.4 kg 25-30 kcal/kg Kcals Calculated ~7387-7458 kcal/day Protein: Adj wt of IBW Protein g/k-1.2 gm/kg Protein Calculated ~50-60 gm/day Fluid: ml ~2421-6415 ml/day (1 ml/kcal) Nutritional Problem 1. Problem Problem Altered nutrition related lab values related to Etiology uncontrolled hyperglycemia aeb Signs/Symptoms: POC glucose 269 Intervention/Recommendation Comments 1. Consider modifying diet to 45 gm CCHO to better meet nutrient needs. 2. MD to modify insulin regimen as needed for optimal glycemic control. Expected Outcomes/Goals Expected Outcomes/Goals Oral intake >75% of meals, weight stable or trend toward IBW, nutrition related lab values WNL. F/U LR 09/04-
[2019-09-25] MEDS: Albuterol Nebulizer 2.5mg/3mL HHN SCH ×4 (00:42→18:01)
[2019-09-25] MEDS: Budesonide 0.5 Mg/2 mL Ud HHN SCH ×2 (06:51→18:01)
[2019-09-25] MEDS: Levothyroxine 0.05 Mg Tab PO SCH (06:52)
[2019-09-25] MEDS: INSULIN LISPRO SLIDING SCALE 100 UNITS/ML UNIT SUBQ SCH ×4 (06:59→20:58)
[2019-09-25] MEDS: Potassium Chloride 10 mEq ER Tab PO SCH (09:38)
[2019-09-25] MEDS: Aspirin 81mg Chewable Tab PO SCH (09:38)
[2019-09-25] MEDS: Ferrous Sulfate 325 MG TAB PO SCH ×2 (09:38→16:14)
--- NOTE | 2019-09-25 13:42 | Progress Notes ---
DATE: 09/25/2019 FOLLOWUP PROGRESS NOTE Case was discussed with staff of the patient, reviewed records. The patient has been selective with her medication. She has been continues to refuse some of her medication, but she took it last night, continues to have poor insight, unpredictable, impulsive. I had a lengthy discussion yesterday from my office with her son and his who is a nurse. Discussed medication she is on, how to deal with her, discussed with him that we are going to order home health for her and that they are going to help and take care of her. Also, the son have a power of district attorney for health reasons and he allowed me to give her medication intramuscular if she refuses p.o. So, I will be ordering for her Haldol lactate to give 2 mg twice a day if she refuses p.o. Seroquel and the patient continues to be wandering in the unit. She reports she does not sleep well, sometimes her appetite is okay. She feeds herself and we will continue to work with the patient in group therapy, milieu therapy, and adjust the medications as needed. JOB# [id number]
--- NOTE | 2019-09-25 14:15 | Internal Medicine Prog Note ---
Internal Medicine Subjective - Subjective Service Date: 09/25/19 Patient is:: awake, interactive, ambulating Per staff patient has:: no adverse event, no episodes of fall Internal Medicine Objective - Results Recent Labs: Laboratory Last Values POC Glucose 130 MG/DL (70 - 105) H 09/25/19 06:26 - Physical Exam Vitals and I&O: Vital Signs Temp 98 F 09/25/19 06:35 Pulse 85 09/25/19 09:58 Resp 17 09/25/19 08:00 BP 153/80 09/25/19 09:58 Pulse Ox 96 09/25/19 06:35 Active Medications: Current Medications Albuterol Sulfate (Albuterol 2.5mg/3ml Neb Ud) 2.5 mg HHN Q6HRT [facility] Stop: 10/26/19 17:59 Last Admin: 09/25/19 12:28 Dose: Not Given Allopurinol (Zyloprim) 100 mg PO DAILY [facility] Stop: 10/27/19 08:59 Last Admin: 09/25/19 09:38 Dose: Not Given Amlodipine Besylate (Norvasc) 5 mg PO DAILY [facility] Stop: 11/22/19 15:29 Last Admin: 09/25/19 09:57 Dose: Not Given Aspirin (Aspirin Chewable) 81 mg PO DAILY [facility] Stop: 10/27/19 08:59 Last Admin: 09/25/19 09:38 Dose: Not Given Brimonidine Tartrate (Alphagan 0.1% Oph Soln) 1 drop EACH EYE HS [facility] Stop: 10/26/19 20:59 Last Admin: 09/24/19 21:00 Dose: Not Given Budesonide (Pulmicort) 0.5 mg HHN BIDRT [facility] Stop: 10/26/19 16:59 Last Admin: 09/25/19 06:51 Dose: Not Given Carvedilol (Coreg) 6.25 mg PO BID [facility] Stop: 10/26/19 16:59 Last Admin: 09/25/19 09:57 Dose: Not Given Dextrose (Glutose 40%) 18.75 gm PO PRN PRN PRN Reason: BS Below 70 if tolerate po Stop: 10/27/19 11:28 Divalproex Sodium (Depakote Dr) 250 mg PO Q8HR [facility]; Protocol Stop: 11/14/19 12:59 Last Admin: 09/25/19 12:28 Dose: Not Given Donepezil HCl (Aricept) 5 mg PO HS [facility] Stop: 10/30/19 20:59 Last Admin: 09/24/19 20:36 Dose: 5 mg Famotidine (Pepcid) 20 mg PO QDAC [facility] Stop: 10/31/19 07:29 Last Admin: 09/25/19 06:52 Dose: 20 mg Ferrous Sulfate (Iron) 325 mg PO BID [facility] Stop: 10/26/19 16:59 Last Admin: 09/25/19 09:38 Dose: Not Given Fluoxetine HCl (Prozac) 20 mg PO DAILY [facility]; Protocol Stop: 10/27/19 08:59 Last Admin: 09/25/19 09:12 Dose: 20 mg Furosemide (Lasix) 20 mg PO DAILY [facility] Stop: 10/27/19 08:59 Last Admin: 09/25/19 09:58 Dose: Not Given Glimepiride (Amaryl) 2 mg PO BID [facility] Stop: 10/26/19 16:59 Last Admin: 09/25/19 09:38 Dose: Not Given Glucagon (Glucagen) 1 mg IM PRN PRN PRN Reason: BS Below 70 if not tolerate po Stop: 10/27/19 11:28 Insulin Human Lispro (Humalog Insulin Sliding Scale) 0 units SUBQ ACHS [facility]; Protocol Stop: 10/27/19 11:29 Last Admin: 09/25/19 12:14 Dose: Not Given Latanoprost (Xalatan 0.005% Ophth Soln) 1 drop EACH EYE [facility] Stop: 10/26/19 20:59 Last Admin: 09/24/19 21:01 Dose: Not Given Levothyroxine Sodium (Synthroid) 0.05 mg PO QDAC [facility] Stop: 10/27/19 07:29 Last Admin: 09/25/19 06:52 Dose: 0.05 mg Lorazepam (Ativan) 0.5 mg PO Q4HR PRN; Protocol PRN Reason: Agitation Stop: 11/24/19 10:57 Memantine (Namenda) 5 mg PO BID [facility] Stop: 11/17/19 16:59 Last Admin: 09/25/19 09:38 Dose: Not Given Metformin HCl (Glucophage) 500 mg PO BID [facility] Stop: 11/09/19 16:59 Last Admin: 09/25/19 09:22 Dose: 500 mg Nitroglycerin (Nitrostat) 0.4 mg SL Q5MIN PRN PRN Reason: Chest Pain Stop: 10/26/19 13:25 Potassium Chloride (Klor-Con) 10 meq PO DAILY [facility] Stop: 10/27/19 08:59 Last Admin: 09/25/19 09:38 Dose: Not Given Quetiapine Fumarate (Seroquel) 100 mg PO BID [facility] Stop: 11/24/19 16:59 Simvastatin (Zocor) 20 mg PO HS [facility]; Protocol Stop: 10/31/19 20:59 Last Admin: 09/24/19 20:36 Dose: 20 mg Valsartan (Diovan) 160 mg PO DAILY [facility] Stop: 10/27/19 08:59 Last Admin: 09/25/19 09:58 Dose: Not Given Zolpidem Tartrate (Ambien) 5 mg PO HS PRN PRN Reason: Insomnia Stop: 11/24/19 10:58 General: obese HEENT: NC/AT Neck: Supple Lungs: CTAB Cardiovascular: RRR, Normal S1, Normal S2 Abdomen: soft, non-tender Extremities: clear Neurological: no change Internal Medicine Assmt/Plan - Assessment Assessment: 1. HTN, better controlled 2. DM, poorly controlled 3. Psychosis - Plan Plan: continue norvasc 5 mg po daily. continue metformin 500 mg po bid and amaryl 2 mg po bid reviewed blood sugar diary reviewed records and d/w r.n. Nutritional Asmnt/Malnutr-PDOC - Dietary Evaluation Malnutrition Findings (Please click <Entered> for more info): Nutritional Asmnt/Malnutrition Start: 08/29/19 09: 11 Text: Status: Complete Freq: Protocol: Document 08/29/19 09:11 TERRIE (Rec: 08/29/19 09:29 TERRIE MANPREET- [id number]) Nutritional Asmnt/Malnutrition Patient General Information Nutritional Screening Moderate Risk Diagnosis Psychosis Pertinent Medical Hx/Surgical Hx Diabetes, Hypertension, asthma , arthritis, dementia, parkinsons, hypothyroidism, glaucoma, hyperlipidemia. Subjective Information Patient was admitted from [facility]. Wallisian speaking. Per nursing notes, patient very suspicious, paranoid that poison powder may be added to her food. Current Diet Order/ Nutrition Support 60 gm CCHO, VIVIEN Patient / S.O Not Indicated Pertinent Medications Pepcid, iron, lasix, glucagon, humalog, synthroid, Metformin , Klor-con Pertinent Labs POC glucose 269 08/25: HDL 44 Nutritional Hx/Data Height 1.45 m Height (Calculated Centimeters) 144.8 Current Weight (lbs) 67.585 kg Weight (Calculated Kilograms) 67.6 Weight (Calculated Grams) 83336.3 [place] Body Weight 92.5 % [place] Body Weight 161 Body Mass Index (BMI) 32.2 Recent Weight Change No Weight Status Obese GI Symptoms GI Symptoms Nausea Last BM 08/27 x 1 Difficult in: None Food Allergies No Cultural/Ethnic/Congregation Belief none indicated Usual diet at home unknown Skin Integrity/Comment: Intact, James 21 Current %PO Good (75-100%) Estimated Nutritional Goals BEE in Kcals: Adj wt of IBW Calories/Kcals/Kg Adj BW 48.4 kg 25-30 kcal/kg Kcals Calculated ~3788-3205 kcal/day Protein: Adj wt of IBW Protein g/k-1.2 gm/kg Protein Calculated ~50-60 gm/day Fluid: ml ~2428-0835 ml/day (1 ml/kcal) Nutritional Problem 1. Problem Problem Altered nutrition related lab values related to Etiology uncontrolled hyperglycemia aeb Signs/Symptoms: POC glucose 269 Intervention/Recommendation Comments 1. Consider modifying diet to 45 gm CCHO to better meet nutrient needs. 2. MD to modify insulin regimen as needed for optimal glycemic control. Expected Outcomes/Goals Expected Outcomes/Goals Oral intake >75% of meals, weight stable or trend toward IBW, nutrition related lab values WNL. F/U LR 09/04-
[2019-09-26] MEDS: Albuterol Nebulizer 2.5mg/3mL HHN SCH ×4 (01:30→18:08)
[2019-09-26] MEDS: Budesonide 0.5 Mg/2 mL Ud HHN SCH ×2 (06:45→18:08)
[2019-09-26] MEDS: Levothyroxine 0.05 Mg Tab PO SCH (06:47)
[2019-09-26] MEDS: INSULIN LISPRO SLIDING SCALE 100 UNITS/ML UNIT SUBQ SCH ×4 (06:59→21:31)
[2019-09-26] MEDS: Aspirin 81mg Chewable Tab PO SCH (09:07)
[2019-09-26] MEDS: Ferrous Sulfate 325 MG TAB PO SCH ×2 (09:07→18:06)
[2019-09-26] MEDS: Potassium Chloride 10 mEq ER Tab PO SCH (09:07)
[2019-09-26] MEDS ORDERED: Haloperidol Lactate 5 mg/mL 1mL Vial IM PRN (11:03)
[2019-09-27] MEDS: Albuterol Nebulizer 2.5mg/3mL HHN SCH ×3 (01:30→12:05)
--- NOTE | 2019-09-27 04:53 | Progress Notes ---
DATE: 09/26/2019 SUBJECTIVE: The patient was seen and evaluated. The patient's chart was reviewed. Today on [id number] evaluation, the patient continues to intermittently refuse medications. Derails in conversation. When I attempted to converse with her, she goes ___ and difficult to follow. ASSESSMENT AND PLAN: Chronic schizophrenic. I will continue following primary psychiatrist's treatment plan and goals. If refusal, eunice has agreed to allow treat IM. [facility]# [id number]
[2019-09-27] MEDS: INSULIN LISPRO SLIDING SCALE 100 UNITS/ML UNIT SUBQ SCH ×4 (06:51→21:27)
[2019-09-27] MEDS: Budesonide 0.5 Mg/2 mL Ud HHN SCH (06:51)
[2019-09-27] MEDS: Levothyroxine 0.05 Mg Tab PO SCH (06:52)
[2019-09-27] MEDS: Potassium Chloride 10 mEq ER Tab PO SCH (09:00)
[2019-09-27] MEDS: Aspirin 81mg Chewable Tab PO SCH (09:00)
--- NOTE | 2019-09-27 23:55 | Progress Notes ---
DATE: 09/27/2019 SUBJECTIVE: The patient was seen and evaluated. The patient's chart was reviewed. Today on [id number] evaluation, the patient is in the corner, screaming "amen, amen." MENTAL STATUS EXAMINATION: Responding, talking to herself. ASSESSMENT AND PLAN: ____ 74-year-old female who continues to present psychotic and needs a lot of redirection. We will continue with primary psychiatrist's treatment plan and goals and her communication with her primary ____. [facility]# [id number]
[2019-09-28] MEDS: Albuterol Nebulizer 2.5mg/3mL HHN SCH ×3 (01:05→13:24)
[2019-09-28] MEDS: Budesonide 0.5 Mg/2 mL Ud HHN SCH (06:51)
[2019-09-28] MEDS: INSULIN LISPRO SLIDING SCALE 100 UNITS/ML UNIT SUBQ SCH ×3 (06:51→16:50)
[2019-09-28] MEDS: Levothyroxine 0.05 Mg Tab PO SCH (06:51)
[2019-09-28] MEDS: Potassium Chloride 10 mEq ER Tab PO SCH (08:51)
[2019-09-28] MEDS: Aspirin 81mg Chewable Tab PO SCH (08:52)
[2019-09-28 12:09] LABS: ANION GAP 14.4 (7.0-16.0); BUN - UREA NITROGEN 23 mg/dL (7-25); CHLORIDE 102 mEq/L (98-107); POTASSIUM SERUM 3.4 mEq/L (3.5-5.1)
[2019-09-28 12:10] LABS: CALCIUM SERUM 9.1 mg/dL (8.6-10.3)
--- NOTE | 2019-09-28 12:49 | Discharge Summary ---
DATE OF DISCHARGE: 09/28/2019 IDENTIFYING INFORMATION: The patient is a 74-year-old female. CHIEF COMPLAINT: Unable to answer. HISTORY OF PRESENT ILLNESS: I talked to the patient through a mayonnaise mixer. The patient was brought by her 2 sons. She was cleared by [facility]. The patient has 2 sons and a daughter. She was diagnosed with psychosis. She denies any aggressive behavior towards her family. The patient in the vomit. She states that she is confused, responding to internal stimuli, having auditory and visual hallucinations, hearing voices that people are trying to harm her and that is her children. She was screaming because she was scared. She also has visual hallucinations stating her was abusing her physically. The patient was unable to tell me about any prior psychiatric treatment; however, according to her son that I have talked to almost on a daily basis he told me that she has never been treated before and this all happening recently. MEDICAL HISTORY: Parkinson's disease, hypertension, hypothyroidism, glaucoma of both eyes and hyperlipidemia. She is hard of hearing. ALLERGIES: SHE IS ALLERGIC TO ATENOLOL, GLIMEPIRIDE, NIACIN, TERBINAFINE AND LIPOFLAVONOID. COURSE IN THE HOSPITAL: The patient was continued with her medication and she was on Prozac 20 mg a day. I added Depakote 250 mg increased to 3 times a day and she continued with amlodipine, Zyloprim, albuterol inhaler, Pulmicort. The patient's Depakote increased to 3 times a day because of her disability, because of her confusion, poor memory I added Aricept 5 mg at bedtime and also she was on Lasix, insulin, and eye drops and levothyroxine. I also added Namenda, increased to 5 mg twice a day. She is also on metformin, potassium. Seroquel was added and increased the dose to twice a day; however, the patient was not taking on a regular basis, decrease it to 100 mg twice a day. As she improved, she was no longer acting and psychotic. She started taking medications more regularly. We felt she could be discharged to a lesser level of care. CONDITION ON DISCHARGE: The patient was able to feed herself, so she is functioning well. She can take care of her ADLs. She socially; however, unable to function because she is hard of hearing, though we were able to get her, her hearing aid. While here, she kept taking it off. However, probably she will function better socially if she started using her hearing aid. FINAL DIAGNOSES: Psychosis, not otherwise specified; cognitive disorder, not otherwise specified. MEDICAL DIAGNOSES: Deferred to the medical doctor. DIAGNOSES INSTRUCTIONS: The patient will follow up with me. Also, will follow up with home health. as mentioned before, if she is able to physically function will take care of her ADLs and socially she can function well if she uses her hearing aid. EXPECTED OUTCOME: Stable if the patient complies with the above. JOB# [id number] ANTONIO
--- NOTE | 2019-09-28 13:46 | Internal Medicine Prog Note ---
Internal Medicine Subjective - Subjective Service Date: 09/28/19 Patient seen and examined:: without staff Patient is:: awake, interactive, ambulating Per staff patient has:: no adverse event, no episodes of fall Internal Medicine Objective - Results Result Diagrams: 09/28/19 10:34 Recent Labs: Laboratory Last Values Sodium 136 mEq/L (136-145) 09/28/19 10:34 Potassium 3.4 mEq/L (3.5-5.1) L 09/28/19 10:34 Chloride 102 mEq/L (98-107) 09/28/19 10:34 Carbon Dioxide 23.0 mEq/L (21.0-31.0) 09/28/19 10:34 Anion Gap 14.4 (7.0-16.0) 09/28/19 10:34 BUN 23 mg/dL (7-25) 09/28/19 10:34 Creatinine 1.0 mg/dL (0.6-1.2) 09/28/19 10:34 Est GFR ( Amer) TNP 09/28/19 10:34 Est GFR (Non-Af Amer) TNP 09/28/19 10:34 BUN/Creatinine Ratio 23.0 09/28/19 10:34 Glucose 128 mg/dL (70-105) H 09/28/19 10:34 POC Glucose 123 MG/DL (70 - 105) H 09/28/19 11:51 Calcium 9.1 mg/dL (8.6-10.3) 09/28/19 10:34 - Physical Exam Vitals and I&O: Vital Signs Temp 98.3 F 09/28/19 06:36 Pulse 97 09/28/19 09:04 Resp 17 09/28/19 08:00 BP 140/86 09/28/19 09:04 Pulse Ox 96 09/28/19 06:36 Intake & Output 09/27/19 09/28/19 09/28/19 18:59 06:59 18:59 Intake Total 670 240 Balance 670 240 Intake: Oral 670 240 Other: # Voids 1 # Bowel Movements 1 Active Medications: Current Medications Albuterol Sulfate (Albuterol 2.5mg/3ml Neb Ud) 2.5 mg HHN Q6HRT [facility] Stop: 10/26/19 17:59 Last Admin: 06/08/20 13:24 Dose: Not Given Allopurinol (Zyloprim) 100 mg PO DAILY [facility] Stop: 10/27/19 08:59 Last Admin: 09/28/19 08:51 Dose: Not Given Amlodipine Besylate (Norvasc) 5 mg PO DAILY [facility] Stop: 11/22/19 15:29 Last Admin: 09/28/19 09:03 Dose: Not Given Aspirin (Aspirin Chewable) 81 mg PO DAILY [facility] Stop: 10/27/19 08:59 Last Admin: 09/28/19 08:52 Dose: Not Given Brimonidine Tartrate (Alphagan 0.1% Ophth Soln) 1 drop EACH EYE HS [facility] Stop: 10/26/19 20:59 Last Admin: 09/27/19 21:27 Dose: Not Given Budesonide (Pulmicort) 0.5 mg HHN BIDRT [facility] Stop: 10/26/19 16:59 Last Admin: 09/28/19 06:51 Dose: Not Given Dextrose (Glutose 40%) 18.75 gm PO PRN PRN PRN Reason: BS Below 70 if tolerate po Stop: 10/27/19 11:28 Divalproex Sodium (Depakote Dr) 250 mg PO Q8HR [facility]; Protocol Stop: 11/14/19 12:59 Last Admin: 09/28/19 13:24 Dose: Not Given Donepezil HCl (Aricept) 5 mg PO HS [facility] Stop: 10/30/19 20:59 Last Admin: 09/27/19 21:24 Dose: 5 mg Famotidine (Pepcid) 20 mg PO QDAC [facility] Stop: 10/31/19 07:29 Last Admin: 09/28/19 06:51 Dose: 20 mg Fluoxetine HCl (Prozac) 20 mg PO DAILY [facility]; Protocol Stop: 10/27/19 08:59 Last Admin: 09/28/19 08:49 Dose: 20 mg Furosemide (Lasix) 20 mg PO DAILY [facility] Stop: 10/27/19 08:59 Last Admin: 09/28/19 09:03 Dose: Not Given Glucagon (Glucagen) 1 mg IM PRN PRN PRN Reason: BS Below 70 if not tolerate po Stop: 10/27/19 11:28 Insulin Human Lispro (Humalog Insulin Sliding Scale) 0 units SUBQ ACHS [facility]; Protocol Stop: 10/27/19 11:29 Last Admin: 09/28/19 11:55 Dose: Not Given Latanoprost (Xalatan 0.005% Ophth Soln) 1 drop EACH EYE HS [facility] Stop: 10/26/19 20:59 Last Admin: 09/27/19 21:27 Dose: Not Given Levothyroxine Sodium (Synthroid) 0.05 mg PO QDAC [facility] Stop: 10/27/19 07:29 Last Admin: 09/28/19 06:51 Dose: 0.05 mg Lorazepam (Ativan) 0.5 mg PO Q4HR PRN; Protocol PRN Reason: Agitation Stop: 11/24/19 10:57 Last Admin: 09/27/19 21:24 Dose: 0.5 mg Memantine (Namenda) 5 mg PO BID [facility] Stop: 11/17/19 16:59 Last Admin: 09/28/19 08:52 Dose: Not Given Metformin HCl (Glucophage) 500 mg PO BID [facility] Stop: 11/09/19 16:59 Last Admin: 09/28/19 08:49 Dose: 500 mg Potassium Chloride (Klor-Con) 10 meq PO DAILY [facility] Stop: 10/27/19 08:59 Last Admin: 09/28/19 08:51 Dose: Not Given Quetiapine Fumarate (Seroquel) 100 mg PO BID [facility] Stop: 11/24/19 16:59 Last Admin: 09/28/19 08:49 Dose: 100 mg Simvastatin (Zocor) 20 mg PO HS [facility]; Protocol Stop: 10/31/19 20:59 Last Admin: 09/27/19 21:24 Dose: 20 mg Valsartan (Diovan) 160 mg PO DAILY [facility] Stop: 10/27/19 08:59 Last Admin: 09/28/19 09:04 Dose: Not Given Zolpidem Tartrate (Ambien) 5 mg PO HS PRN PRN Reason: Insomnia Stop: 11/24/19 10:58 General: obese HEENT: NC/AT Neck: Supple Lungs: CTAB Cardiovascular: RRR, Normal S1, Normal S2 Abdomen: soft, non-tender Extremities: clear Neurological: no change Internal Medicine Assmt/Plan - Assessment Assessment: 1. HTN, better controlled 2. DM, poorly controlled 3. Psychosis - Plan Plan: continue norvasc 5 mg po daily. continue metformin 500 mg po bid and amaryl 2 mg po bid reviewed blood sugar diary reviewed records and d/w r.n. Nutritional Asmnt/Malnutr-PDOC - Dietary Evaluation Malnutrition Findings (Please click <Entered> for more info): Nutritional Asmnt/Malnutrition Start: 08/29/19 09: 11 Text: Status: Complete Freq: Protocol: Document 08/29/19 09:11 TERRIE (Rec: 08/29/19 09:29 TERRIE MANPREET- [id number]) Nutritional Asmnt/Malnutrition Patient General Information Nutritional Screening Moderate Risk Diagnosis Psychosis Pertinent Medical Hx/Surgical Hx Diabetes, Hypertension, asthma , arthritis, dementia, parkinsons, hypothyroidism, glaucoma, hyperlipidemia. Subjective Information Patient was admitted from [facility]. Korean speaking. Per nursing notes, patient very suspicious, paranoid that poison powder may be added to her food. Current Diet Order/ Nutrition Support 60 gm CCHO, VIVIEN Patient / S.O Not Indicated Pertinent Medications Pepcid, iron, lasix, glucagon, humalog, synthroid, Metformin , Klor-con Pertinent Labs POC glucose 269 08/25: HDL 44 Nutritional Hx/Data Height 1.45 m Height (Calculated Centimeters) 144.8 Current Weight (lbs) 67.585 kg Weight (Calculated Kilograms) 67.6 Weight (Calculated Grams) 65499.3 Murray Body Weight 92.5 % Murray Body Weight 161 Body Mass Index (BMI) 32.2 Recent Weight Change No Weight Status Obese GI Symptoms GI Symptoms Nausea Last BM 08/27 x 1 Difficult in: None Food Allergies No Cultural/Ethnic/[employer] Belief none indicated Usual diet at home unknown Skin Integrity/Comment: James Harper 21 Current %PO Good (75-100%) Estimated Nutritional Goals BEE in Kcals: Adj wt of IBW Calories/Kcals/Kg Adj BW 48.4 kg 25-30 kcal/kg Kcals Calculated ~6279-2162 kcal/day Protein: Adj wt of IBW Protein g/k-1.2 gm/kg Protein Calculated ~50-60 gm/day Fluid: ml ~3182-3411 ml/day (1 ml/kcal) Nutritional Problem 1. Problem Problem Altered nutrition related lab values related to Etiology uncontrolled hyperglycemia aeb Signs/Symptoms: POC glucose 269 Intervention/Recommendation Comments 1. Consider modifying diet to 45 gm CCHO to better meet nutrient needs. 2. MD to modify insulin regimen as needed for optimal glycemic control. Expected Outcomes/Goals Expected Outcomes/Goals Oral intake >75% of meals, weight stable or trend toward IBW, nutrition related lab values WNL. F/U LR 09/04-
== END 2019-09-28 17:15 | disposition home or self-care (01) | DRG 885 ==
LOC: GERO 08-27 00:15
PROVIDERS: ADMIT Psychiatry & Neurology Psychiatry; ATTEND Psychiatry & Neurology Psychiatry
DX: F29 Unspecified psychosis not due to a substance or known physiological condition (principal); N39.0 Urinary tract infection, site not specified; E11.9 Type 2 diabetes mellitus without complications; I10 Essential (primary) hypertension; J44.9 Chronic obstructive pulmonary disease, unspecified; E78.5 Hyperlipidemia, unspecified; G20 Parkinson's disease; H40.9 Unspecified glaucoma; E03.9 Hypothyroidism, unspecified; F41.9 Anxiety disorder, unspecified; E66.9 Obesity, unspecified; F20.9 Schizophrenia, unspecified; Z88.8 Allergy status to other drugs, medicaments and biological substances; Z68.32 Body mass index [BMI] 32.0-32.9, adult; Z79.899 Other long term (current) drug therapy
CPT/HCPCS: 36415-UA; 80048-TC; 82948-90; 83036-90; 97530; G0410; J7613; X3904; Z7610